=== PATIENT | female | born 1940 | race Caucasian/White ===

== ENCOUNTER 2016-12-15 11:19 | Inpatient (IN) ==
[2016-12-15] MEDS ORDERED: Ammonia Inhalant AMPUL ONE (11:37)
--- NOTE | 2016-12-15 11:45 | Emergency Department Note ---
Disposition Clinical Impression: History of dementia Altered mental status Qualifiers: Altered mental status type: transient alteration of awareness Qualified Code(s) : R40.4 - Transient alteration of awareness UTI (urinary tract infection) Qualifiers: Urinary tract infection type: site unspecified Hematuria presence: without hematuria Qualified Code(s): N39.0 - Urinary tract infection, site not specified Disposition: Admitted As Inpatient Condition: Serious Time of Disposition: 14:44 General Adult HPI - General Chief complaint: ED Syncope Stated complaint: hypotension/ABD PAIN Time Seen by Provider: 12/15/16 11:30 Source: EMS Mode of arrival: ambulatory Limitations: no limitations Nursing Notes Reviewed: Yes Vital Signs Reviewed: Yes - History of Present Illness HPI Narrative: Patient is a 76-year-old female who family complains that she had acute onset of abdominal pain and then slumped over and was not responding to them but patient still had a pulse and was breathing. Patient has a past history of dementia and Alzheimer's and is a resident at [facility]. This happened around 10 AM. Patient has had previous accounts of this happening but was not brought to the ED from prison. Patient also has an open ulcer on the left lateral portion of her foot proximal to her small toe. Measuring 1 x 1.2 cm. Currently being treated at the prison. Pain Scale: 3 - Related Data Home Medications Medication Instructions Recorded Confirmed Allopurinol [Zyloprim 100 MG] 100 mg PO DAILY 07/03/16 12/15/16 Cholecalciferol (D-3) [Vitamin D] 2,000 unit PO DAILY 07/03/16 12/15/16 Clopidogrel [Plavix] 75 mg PO DAILY 07/03/16 12/15/16 Desvenlafaxine Succinate [Pristiq] 50 mg PO DAILY 07/03/16 12/15/16 Dextromethorphan HBr/Quinidine 1 each PO BID 07/03/16 12/15/16 [Nuedexta 20-10 mg Capsule] Divalproex (12 HR) [Depakote (12 250 mg PO BID 07/03/16 12/15/16 HR)] Ferrous Sulfate 325 mg PO DAILY 07/03/16 12/15/16 Isosorbide MONOnitrate (24 HR) 30 mg PO DAILY 07/03/16 12/15/16 [Imdur] Levothyroxine [Synthroid] 150 mcg PO DAILY 07/03/16 12/15/16 Metoprolol Succinate 100 mg PO DAILY 07/03/16 12/15/16 Multivitamin [Multi-Day Vitamins] 1 each PO DAILY 07/03/16 12/15/16 Oxygen 2 l NS AD 07/03/16 12/15/16 Quetiapine Fumarate [Seroquel] 50 mg PO QAM 07/03/16 12/15/16 Ranitidine HCl [Zantac] 150 mg PO BID 07/03/16 12/15/16 Rivastigmine Tartrate [Exelon] 3 mg PO BID 07/03/16 12/15/16 Amoxicillin/Clavulanate [Augmentin] 875 mg PO BID 12/15/16 12/15/16 Cranberry Fruit Extract [Cranberry] 425 mg PO DAILY 12/15/16 12/15/16 Furosemide [Lasix] 40 mg PO DAILY 12/15/16 12/15/16 Insulin Glargine,Hum.rec.anlog 35 unit SQ HS 12/15/16 12/15/16 [Lantus Solostar] Lisinopril [Zestril] 5 mg PO QID 12/15/16 12/15/16 Tramadol HCl [Ultram] 50 mg PO TID PRN 12/15/16 12/15/16 Warfarin [Coumadin] 3.5 mg PO QPM 12/15/16 12/15/16 Previous Rx's Medication Instructions Recorded Quetiapine Fumarate [Seroquel] 100 mg PO HS tablet 07/07/16 Allergies Allergy/AdvReac Type Severity Reaction Status Date / Time lorazepam Allergy Anaphylaxis Verified 07/03/16 12:08 propoxyphene Allergy Anaphylaxis Verified 07/03/16 12:08 Sulfa (Sulfonamide Allergy Anaphylaxis Verified 07/03/16 12:08 Antibiotics) Limitations: ROS unobtainable due to patients medical condition Past Medical History - Past Medical History Source: obtained from family Medical history: Reports: COPD, dementia Surgical history: Reports: AICD Psychiatric history: Reports: no psych history, depression - Social History Smoking Status: Never smoker Smokeless Tobacco Status: No Alcohol use: Reports: none Drug use: Reports: none Physical Exam Vital Signs Temperature 97.4 F L 12/15/16 11:23 Pulse Rate 70 12/15/16 11:23 Respiratory Rate 12 12/15/16 11:23 Blood Pressure 79/48 12/15/16 11:23 O2 Sat by Pulse Oximetry 97 12/15/16 11:23 Temperature 97.4 F L 12/15/16 11:23 Pulse Rate 65 12/15/16 12:15 Respiratory Rate 14 12/15/16 12:15 Blood Pressure 99/51 12/15/16 12:15 O2 Sat by Pulse Oximetry 98 12/15/16 12:15 Oxygen Delivery Oxygen Delivery Nasal Cannula -General Appearance: Patient is a 76-year-old female who appears asleep at time of initial exam, patient is not responding to external stimuli - Head Head exam: atraumatic, normocephalic, normal inspection - Eye Eye exam: Present: normal appearance, PERRL, EOMI, negative for scleral icterus negative for conjunctival pallor - ENT ENT exam: normal exam, normal oropharynx, mucous membranes moist - Neck Neck exam: Present: normal inspection, full ROM, trachea midline, negative JVD - Chest Chest inspection: Present: Patient has bilateral equal rise and fall of chest wall. Non-tender to palpation. - Respiratory Respiratory exam: Clear to auscultation bilaterally without wheezes rales or rhonchi Cardiovascular Cardiovascular exam: Present: regular rate, normal rhythm, normal heart sounds, without murmurs rubs or gallops. - Abdominal Exam Abdominal exam: Present: soft, nondistended, Non-Tender light and deep palpation in all quadrants. Bowel sounds normoactive throughout all 4 quadrants. Negative for hyper or hyperresonance. - Extremities Exam Extremities exam: Capillary refill less than 2. Left foot in a boot and bandaged, lower tib-fib has huge distended secondary to sores. Patient has a 1 x 1.2 cm ulceration left lateral portion of the foot proximal to the fifth tarsal - Back Exam Back exam: Present: normal inspection, full ROM. - Skin Skin exam: Present: warm, dry, - General General appearance: lethargic Course Course Narrative: Patient was seen and examined. CBC, BMP, troponin, chest x-ray, head CT, lactate, LFTs, CT abdomen and pelvis ordered - Consultations Consultation #1: Dr. Garza accepted for admission Time: 14:44 Vital Signs Temperature 97.4 F L 12/15/16 11:23 Pulse Rate 70 12/15/16 11:23 Respiratory Rate 12 12/15/16 11:23 Blood Pressure 79/48 12/15/16 11:23 O2 Sat by Pulse Oximetry 97 12/15/16 11:23 Temperature 97.3 F L 12/15/16 18:07 Pulse Rate 71 12/15/16 18:07 Respiratory Rate 18 12/15/16 18:07 Blood Pressure 136/42 12/15/16 18:07 O2 Sat by Pulse Oximetry 98 12/15/16 18:07 Oxygen Delivery Oxygen Delivery Nasal Cannula Medical Decision Making - MDM Narrative Medical decision making narrative: Ms Morgan is 6-year-old female who presented his altered mental status. The patient has complaints of abdominal pain with sudden LOC per report from family member. On reexamination patient will more alert but patient's pain symptoms change. Patient's condition was concerning for unclear etiology concerning possible GI event or cardiac event leading to altered mental status. Or possible infection. Head CT was obtained which showed no acute intracranial abnormality. Chest x-ray: The right suprahilar fullness seen on the previous study in June is no longer present, likely representing an acute pneumonic infiltrate at that time. Minimal discoid atelectasis in the left mid lung, otherwise no acute cardiopulmonary process. Cardiomegaly. COPD. CT abdomen and pelvis showed no acute intra-abdominal abnormalities. BMP showed a hyperkalemia at 4.9 as well as worsening kidney function. With increased BUN to current 53, and an increase in creatinine to current 1.79. Previous was 1.45. Patient had normal creatinine back in August of last year. UA shows a UTI. Troponin was negative at 0.01. Patient is admitted for altered mental status secondary to acute encephalopathy secondary to infection in a 76-year-old female with dementia. Patient is accepted for admission by Dr. Garza - Medical Records Medical records reviewed: Yes I reviewed the patient's medical records. - Lab Data Lab results reviewed: Yes I reviewed the patient's lab results. Lab results narrative: Short CBC 12/15/16 Range/Units 12:15 WBC 8.6 (4.3-11.1) K/mcL Hgb 11.1 L (11.5-15.4) g/dL Hct 34.2 L (35.3-44.9) % Plt Count 214 (140-400) K/mcL Neutrophils # 5.3 (1.6-8.9) K/mcL BMP 12/15/16 Range/Units 12:15 Sodium 136 (136-145) mEq/L Potassium 4.9 H (3.5-4.5) mEq/L Chloride 102 (98-109) mEq/L Carbon Dioxide 28 (19-29) mEq/L BUN 53 H (7-20) mg/dL Creatinine 1.79 H (0.57-1.11) mg/dL Glucose 95 (70-99) mg/dL Calcium 8.8 (8.6-10.8) mg/dL Cardiac Enzymes 12/15/16 Range/Units 12:15 Troponin I 0.01 (0-0.03) ng/mL Liver Function 12/15/16 Range/Units 12:15 Total Bilirubin 0.4 (0.2-1.2) mg/dL Direct Bilirubin 0.2 (0.0-0.5) mg/dL AST 12 (5-34) Units/L ALT 9 (0-55) Units/L Alkaline Phosphatase 119 (38-126) Units/L Albumin 2.4 L (3.5-5.0) g/dL Urine 12/15/16 Range/Units 13:56 Urine Color Yellow (Yellow) Urine Clarity Cloudy A (Clear) Urine pH 6.5 (5.0-8.0) pH Units Ur Specific Davis 1.008 L (1.010-1.025) Urine Protein Negative (Neg-Trace) mg/dL Urine Glucose (UA) Normal (Normal) mg/dL Result diagrams: 12/15/16 12:15 12/15/16 12:15 Lab Results 12/15/16 12/15/16 12/15/16 Range/Units 11:34 12:15 12:15 WBC 8.6 (4.3-11.1) K/mcL RBC 3.66 L (3.82-4.97) M/mcL Hgb 11.1 L (11.5-15.4) g/dL Hct 34.2 L (35.3-44.9) % MCV 93.4 (83.0-100.0) fL MCH 30.3 (28.0-33.3) pg MCHC 32.5 (31.6-35.5) g/dL RDW 14.2 (11.5-14.5) % Plt Count 214 (140-400) K/mcL MPV 10.2 (9.4-12.4) fL Immature Gran % 0.4 (0-4) % Seg Neutrophils % 61.7 % Lymphocytes % 25.5 % Monocytes % 8.6 % Eosinophils % 3.4 % Basophils % 0.4 % Neutrophils # 5.3 (1.6-8.9) K/mcL Lymphocytes # 2.2 (0.6-4.6) K/mcL Monocytes # 0.7 (0.0-1.3) K/mcL Eosinophils # 0.3 (0.0-0.6) K/mcL Basophils # 0.0 (0.0-0.2) K/mcL Sodium 136 (136-145) mEq/L Potassium 4.9 H (3.5-4.5) mEq/L Chloride 102 (98-109) mEq/L Carbon Dioxide 28 (19-29) mEq/L BUN 53 H (7-20) mg/dL Creatinine 1.79 H (0.57-1.11) mg/dL Est GFR ( Amer) 33 L (> 60) Est GFR (Non-Af Amer) 28 L (> 60) BUN/Creatinine Ratio 30 H (6-26) Glucose 95 (70-99) mg/dL POC Glucose 102 H (58-89) Calculated Osmolality 296 (280-300) Lactic Acid (0.5-2.2) mmol/L Calcium 8.8 (8.6-10.8) mg/dL Total Bilirubin (0.2-1.2) mg/dL Direct Bilirubin (0.0-0.5) mg/dL Indirect Bilirubin (0.0-1.2) mg/dL AST (5-34) Units/L ALT (0-55) Units/L Alkaline Phosphatase (38-126) Units/L Troponin I (0-0.03) ng/mL Serum Total Protein (6.0-8.3) g/dL Albumin (3.5-5.0) g/dL Globulin (2.4-3.5) g/dL Albumin/Globulin Ratio (1.1-2.2) Urine Color (Yellow) Urine Clarity (Clear) Urine pH (5.0-8.0) pH Units Ur Specific Davis (1.010-1.025) Urine Protein (Neg-Trace) mg/dL Urine Glucose (UA) (Normal) mg/dL Urine Ketones (Negative) mg/dL Urine Blood (Negative) Urine Nitrite (Negative) Urine Bilirubin (Negative) Urine Urobilinogen (Normal) mg/dL Ur Leukocyte Esterase (Negative) Urine Microscopic RBC (0-3) per hpf Urine Microscopic WBC (0-3) per hpf Ur Squamous Epith Cells (None-Few) per lpf Urine Bacteria (None-Few) per hpf Hyaline Casts (None-Few) per lpf 12/15/16 12/15/16 12/15/16 Range/Units 12:15 12:15 12:15 WBC (4.3-11.1) K/mcL RBC (3.82-4.97) M/mcL Hgb (11.5-15.4) g/dL Hct (35.3-44.9) % MCV (83.0-100.0) fL MCH (28.0-33.3) pg MCHC (31.6-35.5) g/dL RDW (11.5-14.5) % Plt Count (140-400) K/mcL MPV (9.4-12.4) fL Immature Gran % (0-4) % Seg Neutrophils % % Lymphocytes % % Monocytes % % Eosinophils % % Basophils % % Neutrophils # (1.6-8.9) K/mcL Lymphocytes # (0.6-4.6) K/mcL Monocytes # (0.0-1.3) K/mcL Eosinophils # (0.0-0.6) K/mcL Basophils # (0.0-0.2) K/mcL Sodium (136-145) mEq/L Potassium (3.5-4.5) mEq/L Chloride (98-109) mEq/L Carbon Dioxide (19-29) mEq/L BUN (7-20) mg/dL Creatinine (0.57-1.11) mg/dL Est GFR ( Amer) (> 60) Est GFR (Non-Af Amer) (> 60) BUN/Creatinine Ratio (6-26) Glucose (70-99) mg/dL POC Glucose (58-89) Calculated Osmolality (280-300) Lactic Acid 1.6 (0.5-2.2) mmol/L Calcium (8.6-10.8) mg/dL Total Bilirubin 0.4 (0.2-1.2) mg/dL Direct Bilirubin 0.2 (0.0-0.5) mg/dL Indirect Bilirubin 0.2 (0.0-1.2) mg/dL AST 12 (5-34) Units/L ALT 9 (0-55) Units/L Alkaline Phosphatase 119 (38-126) Units/L Troponin I 0.01 (0-0.03) ng/mL Serum Total Protein 6.6 (6.0-8.3) g/dL Albumin 2.4 L (3.5-5.0) g/dL Globulin 4.2 H (2.4-3.5) g/dL Albumin/Globulin Ratio 0.6 L (1.1-2.2) Urine Color (Yellow) Urine Clarity (Clear) Urine pH (5.0-8.0) pH Units Ur Specific Davis (1.010-1.025) Urine Protein (Neg-Trace) mg/dL Urine Glucose (UA) (Normal) mg/dL Urine Ketones (Negative) mg/dL Urine Blood (Negative) Urine Nitrite (Negative) Urine Bilirubin (Negative) Urine Urobilinogen (Normal) mg/dL Ur Leukocyte Esterase (Negative) Urine Microscopic RBC (0-3) per hpf Urine Microscopic WBC (0-3) per hpf Ur Squamous Epith Cells (None-Few) per lpf Urine Bacteria (None-Few) per hpf Hyaline Casts (None-Few) per lpf 12/15/16 Range/Units 13:56 WBC (4.3-11.1) K/mcL RBC (3.82-4.97) M/mcL Hgb (11.5-15.4) g/dL Hct (35.3-44.9) % MCV (83.0-100.0) fL MCH (28.0-33.3) pg MCHC (31.6-35.5) g/dL RDW (11.5-14.5) % Plt Count (140-400) K/mcL MPV (9.4-12.4) fL Immature Gran % (0-4) % Seg Neutrophils % % Lymphocytes % % Monocytes % % Eosinophils % % Basophils % % Neutrophils # (1.6-8.9) K/mcL Lymphocytes # (0.6-4.6) K/mcL Monocytes # (0.0-1.3) K/mcL Eosinophils # (0.0-0.6) K/mcL Basophils # (0.0-0.2) K/mcL Sodium (136-145) mEq/L Potassium (3.5-4.5) mEq/L Chloride (98-109) mEq/L Carbon Dioxide (19-29) mEq/L BUN (7-20) mg/dL Creatinine (0.57-1.11) mg/dL Est GFR ( Amer) (> 60) Est GFR (Non-Af Amer) (> 60) BUN/Creatinine Ratio (6-26) Glucose (70-99) mg/dL POC Glucose (58-89) Calculated Osmolality (280-300) Lactic Acid (0.5-2.2) mmol/L Calcium (8.6-10.8) mg/dL Total Bilirubin (0.2-1.2) mg/dL Direct Bilirubin (0.0-0.5) mg/dL Indirect Bilirubin (0.0-1.2) mg/dL AST (5-34) Units/L ALT (0-55) Units/L Alkaline Phosphatase (38-126) Units/L Troponin I (0-0.03) ng/mL Serum Total Protein (6.0-8.3) g/dL Albumin (3.5-5.0) g/dL Globulin (2.4-3.5) g/dL Albumin/Globulin Ratio (1.1-2.2) Urine Color Yellow (Yellow) Urine Clarity Cloudy A (Clear) Urine pH 6.5 (5.0-8.0) pH Units Ur Specific Davis 1.008 L (1.010-1.025) Urine Protein Negative (Neg-Trace) mg/dL Urine Glucose (UA) Normal (Normal) mg/dL Urine Ketones Negative (Negative) mg/dL Urine Blood Negative (Negative) Urine Nitrite Negative (Negative) Urine Bilirubin Negative (Negative) Urine Urobilinogen Normal (Normal) mg/dL Ur Leukocyte Esterase Moderate H (Negative) Urine Microscopic RBC 0-3 (0-3) per hpf Urine Microscopic WBC 30-50 H (0-3) per hpf Ur Squamous Epith Cells Many H (None-Few) per lpf Urine Bacteria None Seen (None-Few) per hpf Hyaline Casts None Seen (None-Few) per lpf - Radiology Data Radiology results reviewed: Yes I reviewed the patient's radiology results. Chest X-Ray 12/15/16 12:06 IMPRESSION: The right suprahilar fullness seen on the previous study in June is no longer present, likely representing an acute pneumonic infiltrate at that time. Minimal discoid atelectasis in the left mid lung, otherwise no acute cardiopulmonary process. Cardiomegaly. COPD. D/ / John Whitlock MD / John Whitlock MD Interpreting Provider: John Whitlock MD Head CT 12/15/16 12:13 IMPRESSION: No hemorrhage or mass Underlying atrophy with periventricular and scattered frontal parietal white matter disease, likely due to small-vessel ischemic change, similar compared to prior D/ / Carson Schrader MD / Carson Schrader MD Interpreting Provider: Carson Schrader MD Abdomen/Pelvis CT 12/15/16 12:19 IMPRESSION: No acute intraabdominal abnormality Cholelithiasis There is a lobular contour of the liver suggesting underlying cirrhosis Diverticulosis. No bowel obstruction. D/ / Carson Schrader MD / Carson Schrader MD Interpreting Provider: Carson Schrader MD - EKG Data EKG #1 EKG attestation: Yes I reviewed and interpreted this EKG. Attestation Statement - Attestation Attestation: For this encounter, I have reviewed the resident, SOCIAL SERVICES DIRECTOR, or PA documentation, treatment plan, and medical decision making; and I have had face to face time with this patient. 76-year-old female presents with altered mental status. Family states that she had an acute episode where she was verbally unresponsive. Patient was still able to look around the room however she was unable to answer any questions. This is significantly different from the patient's baseline. This lasted for about an hour prior to the patient spontaneously improving and is now able to converse in the emergency department. Patient was being treated for a urinary tract infection with Augmentin at home. She continues to have a urinary tract infection in the emergency department. She was started on Zosyn based off previous sensitivity results. Patient family feel comfortable with plan to admit the patient for continued care.
[2016-12-15] MEDS ORDERED: 0.9 % Sodium Chloride 1,000 ML ONE (11:48)
[2016-12-15] MEDS ORDERED: Neosporin OINT 1 APPL PACKET TP ONE (12:07)
[2016-12-15 12:22] LABS: Basophils % 0.4 %; Eosinophils # 0.3 K/mcL (0.0-0.6); Eosinophils % 3.4 %; Hematocrit 34.2 % (35.3-44.9); Hemoglobin 11.1 g/dL (11.5-15.4); Immature Granulocytes % 0.4 % (0-4); Lymphocytes # 2.2 K/mcL (0.6-4.6); Lymphocytes % 25.5 %; Mean Corpuscular HGB Conc 32.5 g/dL (31.6-35.5); Mean Corpuscular Hemoglobin 30.3 pg (28.0-33.3); Mean Corpuscular Volume 93.4 fL (83.0-100.0); Mean Platelet Volume 10.2 fL (9.4-12.4); Monocytes # 0.7 K/mcL (0.0-1.3); Monocytes % 8.6 %; Neutrophils # 5.3 K/mcL (1.6-8.9); Platelet Count 214 K/mcL (140-400); Red Blood Count 3.66 M/mcL (3.82-4.97); Red Cell Distribution Width 14.2 % (11.5-14.5); Segmented Neutrophils % 61.7 %
[2016-12-15 12:37] LABS: Calcium 8.8 mg/dL (8.6-10.8); Potassium 4.9 mEq/L (3.5-4.5)
[2016-12-15 12:39] LABS: Bilirubin,Direct 0.2 mg/dL (0.0-0.5); Bilirubin,Total 0.4 mg/dL (0.2-1.2)
[2016-12-15 12:40] LABS: Albumin 2.4 g/dL (3.5-5.0); Albumin/Globulin Ratio 0.6 (1.1-2.2); Bilirubin,Indirect 0.2 mg/dL (0.0-1.2); Globulin 4.2 g/dL (2.4-3.5); Total Protein 6.6 g/dL (6.0-8.3)
[2016-12-15 14:00] LABS: Bilirubin,Urine Negative (Negative); Blood,Urine Negative (Negative); Clarity,Urine Cloudy (Clear); Color,Urine Yellow (Yellow); Glucose,Urine (UA) Normal (Normal); Ketones,Urine Negative (Negative); Leukocyte Esterase,Urine Moderate (Negative); Nitrite,Urine Negative (Negative); PH,Urine 6.5 pH Units (5.0-8.0); Protein,Urine Negative (Neg-Trace); Specific Gravity,Urine 1.008 (1.010-1.025); Urobilinogen,Urine Normal (Normal)
[2016-12-15 14:02] LABS: Bacteria,Urine None Seen per hpf (None-Few); Hyaline Casts,Urine None Seen per lpf (None-Few); RBC,Urine 0-3 per hpf (0-3); Squamous Epithelial Cell,Urine Many per lpf (None-Few); WBC,Urine 30-50 per hpf (0-3)
[2016-12-15] MEDS ORDERED: Piperacillin/Tazobactam 3.375 GM in D5% in Water (Mini-Bag+) 100 ML IVPB ONE (14:43)
[2016-12-15] MEDS ORDERED: D5% in Water 100 ML ONE (16:09)
[2016-12-15] MEDS ORDERED: D5% in Water (Mini-Bag+) 100 ML IVPB ONE (16:10)
[2016-12-15] MEDS ORDERED: Naloxone 0.4 MG/ML INJ IVP PRN (22:10)
[2016-12-15] MEDS ORDERED: Ondansetron 4 MG/2 ML VIAL IVP PRN (22:10)
[2016-12-15] MEDS ORDERED: traMADol 50 MG TABLET PO PRN (22:15)
[2016-12-15] MEDS ORDERED: D5% in Water 1,000 ML IV PRN (22:17)
[2016-12-15] MEDS ORDERED: Dextrose Gel 15 GM PO PRN ×2 (22:17)
[2016-12-15] MEDS ORDERED: Vancomycin 1,000 MG in D5% in Water 250 ML IVPB SCH (22:31)
--- NOTE | 2016-12-15 22:38 | Internal Med History&Physical ---
Date of Encounter: 12/15/16 Time of Encounter: 21:45 Assessment and Plan (1) Altered mental status Current visit: Yes Status: Acute -Unclear of patient's baseline mental status, however as per records patient at this time appears to be at baseline -Patient is currently undergoing treatment for a possible UTI as outpatient, however family not available to obtain more information -Urine culture from 12/06/2016 positive for enterococcus faecalis sensitive to vancomycin -We will try to obtain more information from the family in a.m. -Continue to monitor -Maintain fall precautions Qualifiers: Altered mental status type: unspecified Qualified Code(s): R41.82 - Altered mental status, unspecified (2) History of dementia Current visit: Yes Status: Chronic Mental status appears to be at baseline as per records Continue home medications (3) UTI (urinary tract infection) Current visit: Yes Status: Acute Urine culture from 12/06/2016 positive for enterococcus faecalis sensitive to vancomycin We will start vancomycin at this time Underlying UTI might be contributing to patient's mental status Follow up repeat Urine cultures Qualifiers: Urinary tract infection type: site unspecified Hematuria presence: without hematuria Qualified Code(s): N39.0 - Urinary tract infection, site not specified (4) Acute kidney injury superimposed on chronic kidney disease Current visit: Yes Status: Acute -Likely secondary to underlying infection vs. prerenal -Will start IV fluids -Avoid nephrotoxic agents -continue to closely monitor kidney function (5) COPD (chronic obstructive pulmonary disease) Current visit: Yes Status: Chronic not in acute exacerbation continue to monitor O2 sat O2 supplementation as needed continue bronchodilator support as needed continue home medications Qualifiers: COPD type: unspecified COPD Qualified Code(s): J44.9 - Chronic obstructive pulmonary disease, unspecified (6) Hypertension Current visit: Yes Status: Chronic Patient noted to be hypotensive upon arrival BP within acceptable range at this time will continue to monitor continue home medications Qualifiers: Hypertension type: essential hypertension Qualified Code(s): I10 - Essential (primary) hypertension (7) Diabetes mellitus Current visit: Yes Status: Chronic -continue home lantus dose -continue to monitor fingerstick and blood glucose -started low dose insulin sliding scale as needed -f/u HbA1C, last A1C from Aug 2016:7.9 Qualifiers: Diabetes mellitus type: type 2 Diabetes mellitus complication status: with unspecified complications Diabetes mellitus mcfp insulin use: with oil heaterman use Qualified Code(s): E11.8 - Type 2 diabetes mellitus with unspecified complications; Z79.4 - intermodal customer service (current) use of insulin (8) Foot ulcer Current visit: No Status: Chronic continue daily wound care Qualifiers: Laterality: left Non-pressure ulcer stage: with necrosis of muscle Qualified Code(s): 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 (9) Atrial fibrillation Current visit: No Status: Chronic Rate controlled with Metoprolol Anticoagulated with Warfarin f/u INR, goal INR:2-3 Qualifiers: Atrial fibrillation type: chronic Qualified Code(s): I48.2 - Chronic atrial fibrillation (10) Anemia Current visit: No Status: Chronic -History of iron deficiency anemia -H&H low but acceptable -continue iron supplementation -no active bleeding noted at this time -continue to monitor Qualifiers: Anemia type: iron deficiency Iron deficiency anemia type: unspecified iron deficiency Qualified Code(s): D50.9 - Iron deficiency anemia, unspecified (11) Hypothyroidism Current visit: Yes Status: Chronic continue Levothyroxine Qualifiers: Hypothyroidism type: unspecified Qualified Code(s): E03.9 - Hypothyroidism , unspecified (12) Abdominal pain Current visit: Yes Status: Acute Resolved at this time however as per records patient complained of abdominal pain prior to transfer to the ER CT abd/pelvis consistent with liver cirrhosis If symptoms recur, consider GI eval, if remains asymptomatic, further work up as outpatient. Qualifiers: Abdominal location: unspecified location Qualified Code(s): R10.9 - Unspecified abdominal pain (13) DVT prophylaxis Current visit: Yes Status: Acute Anticoagulated with Warfarin Internal Medicine - H&P: HPI Chief complaint: change in mental status/LOC Admitted From: Long-term Nursing Facility Plans for Post Hospital Care: [facility] History of present illness: Ms. Morgan is a 76 year old female with past medical history of atrial fibrillation on anticoagulation, COPD on home oxygen, dementia, Alzheimer's disease, thyroid disease, hypertension, diabetes who was sent from [facility] for evaluation of change in mental status. Patient has underlying dementia and at baseline is confused due to which she is not able to provide much medical history and information was obtained from prior medical records. As per records patient was transferred from the shelter to ER status post fall, abdominal pain, and LOC. Patient underwent extensive imaging studies in the ER with only pertinent findings of lobular pattern noted on the liver consistent with cirrhosis. During my evaluation, patient is resting comfortably in bed and is pleasantly confused. She is alert and oriented to self and does not know where she is at this time. Upon further questioning she denies any pain or discomfort at this time. She denies any headache, shortness of breath, chest pain, palpitations, abdominal pain, nausea, vomiting, fever, or chills. As per records she has history of chronic UTIs and is currently going through treatment of left lower extremity diabetic foot ulcer. As per NH patient was started on Augmentin for unclear etiology. Unable to get in touch with family to obtain more information at this time. No living will or advanced directives noted in the shelter papers, patient is full code at this time. Please consult family in regards to advanced directives. Past Med Surg Social Fam HX - Past Medical History Medical history: COPD, dementia Psychiatric history: no psych history, depression - Past Surgical History Surgical History: AICD - Social History Smoking Status: Never smoker Smokeless Tobacco Status: No Alcohol use: none Drug use: none - Family History Mother Living Status: Hx Family Cardiac Disorders: Yes Internal Medicine - H&P: Meds Allopurinol [Zyloprim 100 MG] 100 mg PO DAILY 07/03/16 [History] Cholecalciferol (D-3) [Vitamin D] 2,000 unit PO DAILY 07/03/16 [History] Clopidogrel [Plavix] 75 mg PO DAILY 07/03/16 [History] Desvenlafaxine Succinate [Pristiq] 50 mg PO DAILY 07/03/16 [History] Dextromethorphan HBr/Quinidine [Nuedexta 20-10 mg Capsule] 1 each PO BID [History] Divalproex (12 HR) [Depakote (12 HR)] 250 mg PO BID 07/03/16 [History] Ferrous Sulfate 325 mg PO DAILY 07/03/16 [History] Isosorbide MONOnitrate (24 HR) [Imdur] 30 mg PO DAILY 07/03/16 [History] Levothyroxine [Synthroid] 150 mcg PO DAILY 07/03/16 [History] Metoprolol Succinate 100 mg PO DAILY 07/03/16 [History] Multivitamin [Multi-Day Vitamins] 1 each PO DAILY 07/03/16 [History] Oxygen 2 l NS AD 07/03/16 [History] Quetiapine Fumarate [Seroquel] 50 mg PO QAM 07/03/16 [History] Ranitidine HCl [Zantac] 150 mg PO BID 07/03/16 [History] Rivastigmine Tartrate [Exelon] 3 mg PO BID 07/03/16 [History] Quetiapine Fumarate [Seroquel] 100 mg PO HS tablet 07/07/16 [Rx] Amoxicillin/Clavulanate [Augmentin] 875 mg PO BID 12/15/16 [History] Cranberry Fruit Extract [Cranberry] 425 mg PO DAILY 12/15/16 [History] Furosemide [Lasix] 40 mg PO DAILY 12/15/16 [History] Insulin Glargine,Hum.rec.anlog [Lantus Solostar] 35 unit SQ HS 12/15/16 [History ] Lisinopril [Zestril] 5 mg PO QID 12/15/16 [History] Tramadol HCl [Ultram] 50 mg PO TID PRN 12/15/16 [History] Warfarin [Coumadin] 3.5 mg PO QPM 12/15/16 [History] Allergies lorazepam Allergy (Verified 07/03/16 12:08) Anaphylaxis propoxyphene Allergy (Verified 07/03/16 12:08) Anaphylaxis Sulfa (Sulfonamide Antibiotics) Allergy (Verified 07/03/16 12:08) Anaphylaxis All Systems PM: A 10-system review of systems was performed and is negative for pertinent findings except as documented above in the HPI. - Constitutional Constitutional: as per HPI - Constitutional Vitals: Temp Pulse Resp BP Pulse Ox 97.3 F L 71 18 136/42 98 12/15/16 18:07 12/15/16 18:07 12/15/16 18:07 12/15/16 18:07 12/15/16 18:07 General appearance: Present: A&O X 1, pleasant, no acute distress, obese - Head Head exam: Present: atraumatic, normocephalic - Eye Eye exam: Present: normal appearance, conjuntiva pink, sclera anicteric - Respiratory Respiratory exam: Present: CTAB. Absent: respiratory distress, wheezes - GI/Abdominal GI/Abdominal exam: Present: normal bowel sounds, soft. Absent: distended, tenderness - Extremities Exam Extremities exam: Present: pedal edema, warm, radial pulses palpable and symetrical (LLE healing ulcers noted-dressing in place). Absent: calf tenderness - Neurological Exam Neurological exam: Present: alert. Absent: facial droop, speech deficit - Psychiatric Psychiatric exam: Present: normal affect, normal mood Internal Med - H&P Results - Labs CBC & Chem 7: 12/15/16 12:15 12/15/16 12:15
[2016-12-15] MEDS ORDERED: Insulin DETEMIR 100 UNIT/ML X5UNITS SQ SCH (22:45)
[2016-12-15] MEDS: 0.9 % Sodium Chloride 1,000 ML IVC SCH (23:28)
[2016-12-16] MEDS ORDERED: Vancomycin 1,500 MG in D5% in Water 250 ML IVPB ONE
[2016-12-16 05:48] LABS: Basophils % 0.3 %; Eosinophils % 3.7 %; Hematocrit 34.8 % (35.3-44.9); Hemoglobin 11.3 g/dL (11.5-15.4); Immature Granulocytes % 0.3 % (0-4); Lymphocytes % 25.7 %; Mean Corpuscular HGB Conc 32.5 g/dL (31.6-35.5); Mean Corpuscular Volume 92.3 fL (83.0-100.0); Mean Platelet Volume 11.1 fL (9.4-12.4); Monocytes % 11.9 %; Platelet Count 229 K/mcL (140-400); Red Blood Count 3.77 M/mcL (3.82-4.97); Red Cell Distribution Width 14.2 % (11.5-14.5); Segmented Neutrophils % 58.1 %
[2016-12-16 05:49] LABS: Eosinophils # 0.3 K/mcL (0.0-0.6); Lymphocytes # 2.3 K/mcL (0.6-4.6); Monocytes # 1.1 K/mcL (0.0-1.3); Neutrophils # 5.2 K/mcL (1.6-8.9)
[2016-12-16 05:52] LABS: INR 2.6; Prothrombin Time 28.3 Seconds (9.4-12.1)
[2016-12-16 06:01] LABS: Hemoglobin A1C 6.7 %
[2016-12-16 06:03] LABS: Calcium 8.7 mg/dL (8.6-10.8); Magnesium 1.9 mg/dL (1.6-2.6); Phosphorous 3.5 mg/dL (2.3-4.7); Potassium 4.3 mEq/L (3.5-4.5)
[2016-12-16] MEDS: *HR* Dextrose 50 % in Water (Syg) 50 ML SYRINGE IVP PRN ×2 (06:13→08:01)
[2016-12-16] MEDS ORDERED: Famotidine 20 MG TABLET PO SCH (07:30)
[2016-12-16] MEDS: Insulin LISPRO 300 UNITS/3 ML VIAL SQ SCH ×4 (07:42→21:29)
--- NOTE | 2016-12-16 08:54 | Internal Med Progress Note ---
<Subhash Alcaraz - Last Filed: 12/16/16 15:27> Date of Encounter: 12/16/16 Time of Encounter: 08:54 - Assessment and plan (1) Altered mental status Current Visit: Yes Status: Acute Assessment and plan: Per pt's family member, her mental status change is different from her baseline dementia, multiple hx of recurrent UTI in the past, urine culture pending at this time, currently on vanco IV for possible underlying uti based on previous culture result sensitivity, this mental status might be her new baseline since she had multiple UTI in the past which could made her baseline dementia worse, or could be infectious etiology, CT abd showed cirrhosis, no hx of alcohol abuse but hx of obesity, DM II and HLD, could be MINER, check ammonia level and hepatitis panel, check blood cultures, EEG to r/o seizure, check TSH. Qualifiers: Altered mental status type: unspecified Qualified Code(s): R41.82 - Altered mental status, unspecified (2) Dementia in Alzheimer's disease Current Visit: Yes Status: Acute Assessment and plan: Her current mental status is worse than her baseline. (3) Recurrent UTI Current Visit: Yes Status: Acute Assessment and plan: Urine culture pending, multiple hx, chronic issue, con't vanco IV which was based on sensitivity of previous urine culture. (4) Cirrhosis Current Visit: Yes Status: Acute Assessment and plan: Likely IMNER from hx of obesity, DM II and HLD, will start her on statin, good control of DM II and she might need to lose weight. Qualifiers: Qualified Code(s): K74.60 - Unspecified cirrhosis of liver (5) Hypoglycemia due to type 2 diabetes mellitus Current Visit: Yes Status: Acute Assessment and plan: Consistenly low during this stay, will hold off of basal and see how she does, it was 39 this AM, a1c is 6.7 today. (6) Hypotension Current Visit: Yes Status: Acute Assessment and plan: Hold home dose lasix and antihypertensive meds, con't IV fluid. Qualifiers: Qualified Code(s): I95.9 - Hypotension, unspecified (7) A-fib Current Visit: Yes Status: Acute Assessment and plan: Hx of a-fib on chronic coumadin therapy, therapeutic INR today, HR controlled. Qualifiers: Qualified Code(s): I48.91 - Unspecified atrial fibrillation (8) DVT prophylaxis Current Visit: Yes Status: Acute Assessment and plan: Coumadin. - Constitutional Vitals: Temp Pulse Resp BP Pulse Ox 97.9 F 76 18 105/80 98 12/16/16 07:24 12/16/16 07:24 12/16/16 07:24 12/16/16 07:24 12/16/16 07:24 General appearance: Present: A&O X 1 (to name only), no acute distress, obese. Absent: cooperative, answers questions appropriately - Head Head exam: Present: atraumatic, normocephalic - Eye Eye exam: Present: PERRL, conjuntiva pink, sclera anicteric Pupils: Present: PERRL - Neck Neck exam general surgery: Present: supple, trachea midline. Absent: lymphadenopathy - Respiratory Respiratory exam: Present: CTAB. Absent: accessory muscle use, rales, rhonchi, wheezes - Cardiovascular Cardiovascular exam: Present: RRR, +S1, +S2. Absent: diastolic murmur, gallop, rubs, systolic murmur - GI/Abdominal GI/Abdominal exam: Present: normal bowel sounds, soft, no peritoneal signs. Absent: distended, tenderness - Extremities Exam Extremities exam: Present: warm, radial pulses palpable and symetrical. Absent : calf tenderness, cyanotic, pedal edema - Neurological Exam Neurological exam: Present: altered, CN II-XII intact, no focal deficits, strengths equal and symetr throughout. Absent: alert, oriented X3, pronater drift, facial droop, speech deficit - Skin Skin exam: Present: dry, intact Internal Medicine: Result - Labs CBC & Chem 7: 12/16/16 05:12 12/16/16 05:12 Labs: Short CBC 12/16/16 Range/Units 05:12 WBC 8.9 (4.3-11.1) K/mcL Hgb 11.3 L (11.5-15.4) g/dL Hct 34.8 L (35.3-44.9) % Plt Count 229 (140-400) K/mcL Neutrophils # 5.2 (1.6-8.9) K/mcL BMP 12/16/16 05:12 Sodium 138 Potassium 4.3 Chloride 104 Carbon Dioxide 25 BUN 43 H D Creatinine 1.48 H Glucose 39 L* Calcium 8.7 - ABG Interpretation ABG results: PT/INR, D-dimer PT 28.3 Seconds (9.4-12.1) H 12/16/16 05:12 Consult Discharge Plan - Plan Referrals: Yrn Avery MD [Primary Care Provider] - <Gerson Garcia - Last Filed: 12/16/16 17:32> Date of Encounter: 12/16/16 - Assessment and plan (1) Acute metabolic encephalopathy Current Visit: Yes Status: Acute (2) Hypotension Current Visit: Yes Status: Acute Qualifiers: Hypotension type: orthostatic hypotension Qualified Code(s): I95.1 - Orthostatic hypotension (3) Diabetes mellitus Current Visit: Yes Status: Chronic Qualifiers: Diabetes mellitus type: type 2 Diabetes mellitus complication status: with hypoglycemia Diabetes mellitus complication detail: without coma Diabetes mellitus long line teamster insulin use: with long line teamster use Qualified Code(s): E11.649 - Type 2 diabetes mellitus with hypoglycemia without coma; Z79.4 - residential ( current) use of insulin (4) A-fib Current Visit: Yes Status: Acute Qualifiers: Atrial fibrillation type: chronic Qualified Code(s): I48.2 - Chronic atrial fibrillation (5) Cirrhosis Current Visit: Yes Status: Acute Qualifiers: Hepatic cirrhosis type: unspecified hepatic cirrhosis Ascites presence: without ascites Qualified Code(s): K74.60 - Unspecified cirrhosis of liver (6) Dementia in Alzheimer's disease Current Visit: Yes Status: Acute - Constitutional Vitals: Temp Pulse Resp BP Pulse Ox 97.6 F 78 12 114/67 100 12/16/16 16:46 12/16/16 16:46 12/16/16 16:46 12/16/16 16:46 12/16/16 16:46 Internal Medicine: Result - Labs CBC & Chem 7: 12/16/16 05:12 12/16/16 05:12 - ABG Interpretation ABG results: PT/INR, D-dimer PT 28.3 Seconds (9.4-12.1) H 12/16/16 05:12 - Attending Attestation I examined this patient and my medical decision-making was reviewed with the Resident Physician on 12/16/16. I agree with the documented findings, disposition and treatment plan as described except to the extent set forth below. Ms. Morgan is currently admitted for acute mental status change. She is profoundly hypoglycemic today. Her BP has been low as well. She remains moderate to high risk due to potential for worsening mental/neurologic condition. States was somnolent this AM when blood sugar was low but is more awake later in the morning. Denies pain. No dyspnea. No GI symptoms Exam Alert. Confused Heart irreg Lungs diminished but clear Abd soft I/P 1. Acute metabolic encephalopathy 2. UTI 3. Dementia Further diagnoses and plan as above.
[2016-12-16] MEDS ORDERED: Divalproex (12 HR) 250 MG TABLET PO SCH (09:00)
[2016-12-16] MEDS ORDERED: Metoprolol XL (24 HR) Succ 50 MG TAB.ER.24H PO SCH ×2 (09:00)
[2016-12-16] MEDS ORDERED: Furosemide 40 MG TABLET PO SCH (09:00)
[2016-12-16] MEDS: 0.9 % Sodium Chloride 1,000 ML IVC SCH ×2 (11:31→23:45)
[2016-12-16] MEDS: CRANBERRY 425 MG PO SCH (13:03)
[2016-12-16] MEDS: Isosorbide MONOnitrate (24 HR) 30 MG TAB.ER.24H PO SCH (13:03)
[2016-12-16] MEDS: Multivit/Ca/Min/Fe/FA 1 TAB TABLET PO SCH (13:09)
[2016-12-16] MEDS: Venlafaxine XR (24 HR) 75 MG CAP.ER.24H PO SCH (13:09)
[2016-12-16] MEDS: Cholecalciferol (D-3) 1,000 UNIT TABLET PO SCH (13:09)
[2016-12-16] MEDS: Rivastigmine Tartrate (oral) 1.5 MG CAPSULE PO SCH ×2 (13:09→21:33)
[2016-12-16 13:54] LABS: Hepatitis B Surface Antigen Nonreactive (Nonreactive)
[2016-12-16] MEDS ORDERED: *HR* Warfarin 3 MG TABLET PO SCH (18:00)
--- NOTE | 2016-12-16 18:38 | Electrocardiograph Report ---
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
[2016-12-16] MEDS ORDERED: Insulin DETEMIR 100 UNIT/ML X5UNITS SQ SCH (21:00)
[2016-12-17] MEDS ORDERED: Vancomycin 1,500 MG in D5% in Water 250 ML IVPB ONE (01:00)
[2016-12-17 05:31] LABS: Calcium 8.5 mg/dL (8.6-10.8); Potassium 4.1 mEq/L (3.5-4.5)
[2016-12-17 05:53] LABS: Thyroid Stimulating Hormone 0.552 mcIU/mL (0.350-4.840)
[2016-12-17] MEDS ORDERED: Aminoglycoside Consult 1 EACH MC ONE (07:41)
[2016-12-17] MEDS: Rivastigmine Tartrate (oral) 1.5 MG CAPSULE PO SCH ×2 (08:38→20:28)
[2016-12-17] MEDS: Isosorbide MONOnitrate (24 HR) 30 MG TAB.ER.24H PO SCH (08:39)
[2016-12-17] MEDS: Insulin LISPRO 300 UNITS/3 ML VIAL SQ SCH ×4 (08:39→20:27)
[2016-12-17] MEDS: Multivit/Ca/Min/Fe/FA 1 TAB TABLET PO SCH (08:39)
[2016-12-17] MEDS: Venlafaxine XR (24 HR) 75 MG CAP.ER.24H PO SCH (08:39)
[2016-12-17] MEDS: CRANBERRY 425 MG PO SCH (08:39)
[2016-12-17] MEDS: Cholecalciferol (D-3) 1,000 UNIT TABLET PO SCH (08:39)
[2016-12-17] MEDS: Famotidine 20 MG TABLET PO SCH (08:40)
--- NOTE | 2016-12-17 09:24 | EEG/EMG/Oth Biometrics Report ---
EEG Procedure Report Date of procedure: 12/17/16 EEG Procedure: Routine EEG Procedure Note: Report: This EEG was acquired with standard international 10-20 electrode placement system with EKG recording. The background activity during this EEG was replaced by a mixture of theta, occasional delta and slow alpha activity with best frequency up to 7-8Hz. The background activity was reactive. Sleep stages were not identified during the study. Diffuse persistent muscle activity noted throughout the study. There are no electricographic seizures identified during this tracing. There are no epileptiform discharges and focal slowing noted during this recording. Photic stimulation produced no abnormalities. HV not performed during this study. EKG tracing showed no significant cardiac dysarrhythmia. Impression: This is an abnormal EEG due to presence of mild diffuse background slowing. Clinical Correlation: This EEG is consistent with mild to moderate diffuse cerebral dysfunction that can be seen in patients with encephalopathy, metabolic/toxic, electrolyte derangement, or other causes. Clinical correlation suggested.
--- NOTE | 2016-12-17 11:16 | Discharge Summary ---
Date of Encounter: 12/17/16 Time of Encounter: 10:50 - Discharge Diagnosis (1) Altered mental status Priority: Primary Status: Acute Qualifiers: Altered mental status type: unspecified Qualified Code(s): R41.82 - Altered mental status, unspecified (2) Dementia in Alzheimer's disease Priority: Secondary Status: Acute (3) Recurrent UTI Priority: Secondary Status: Acute (4) Cirrhosis Priority: Secondary Status: Acute Qualifiers: Hepatic cirrhosis type: unspecified hepatic cirrhosis Ascites presence: without ascites Qualified Code(s): K74.60 - Unspecified cirrhosis of liver (5) Hypoglycemia due to type 2 diabetes mellitus Priority: Secondary Status: Acute (6) Hypotension Priority: Secondary Status: Acute Qualifiers: Hypotension type: orthostatic hypotension Qualified Code(s): I95.1 - Orthostatic hypotension (7) A-fib Priority: Secondary Status: Acute Qualifiers: Atrial fibrillation type: chronic Qualified Code(s): I48.2 - Chronic atrial fibrillation (8) DVT prophylaxis Priority: Secondary Status: Acute - Discharge Medications Home Medications: Allopurinol [Zyloprim 100 MG] 100 mg PO DAILY 07/03/16 [History] Cholecalciferol (D-3) [Vitamin D] 2,000 unit PO DAILY 07/03/16 [History] Clopidogrel [Plavix] 75 mg PO DAILY 07/03/16 [History] Desvenlafaxine Succinate [Pristiq] 50 mg PO DAILY 07/03/16 [History] Dextromethorphan HBr/Quinidine [Nuedexta 20-10 mg Capsule] 1 each PO BID [History] Divalproex (12 HR) [Depakote (12 HR)] 250 mg PO BID 07/03/16 [History] Ferrous Sulfate 325 mg PO DAILY 07/03/16 [History] Isosorbide MONOnitrate (24 HR) [Imdur] 30 mg PO DAILY 07/03/16 [History] Levothyroxine [Synthroid] 150 mcg PO DAILY 07/03/16 [History] Metoprolol Succinate 100 mg PO DAILY 07/03/16 [History] Multivitamin [Multi-Day Vitamins] 1 each PO DAILY 07/03/16 [History] Oxygen 2 l NS AD 07/03/16 [History] Quetiapine Fumarate [Seroquel] 50 mg PO QAM 07/03/16 [History] Ranitidine HCl [Zantac] 150 mg PO BID 07/03/16 [History] Rivastigmine Tartrate [Exelon] 3 mg PO BID 07/03/16 [History] Quetiapine Fumarate [Seroquel] 100 mg PO HS tablet 07/07/16 [Rx] Amoxicillin/Clavulanate [Augmentin] 875 mg PO BID 12/15/16 [History] Cranberry Fruit Extract [Cranberry] 425 mg PO DAILY 12/15/16 [History] Furosemide [Lasix] 40 mg PO DAILY 12/15/16 [History] Insulin Glargine,Hum.rec.anlog [Lantus Solostar] 35 unit SQ HS 12/15/16 [History ] Lisinopril [Zestril] 5 mg PO QID 12/15/16 [History] Tramadol HCl [Ultram] 50 mg PO TID PRN 12/15/16 [History] Warfarin [Coumadin] 3.5 mg PO QPM 12/15/16 [History] Allergies/Adverse Reactions: Allergies lorazepam Allergy (Verified 07/03/16 12:08) Anaphylaxis propoxyphene Allergy (Verified 07/03/16 12:08) Anaphylaxis Sulfa (Sulfonamide Antibiotics) Allergy (Verified 07/03/16 12:08) Anaphylaxis Date of admission: 12/16/16 11:12 Primary care physician: Yrn Avery MD Consults: 12/16/16 11:37 Consult to Wound Care [CONS] Routine Reason for Consult: STAGE 2 WOUND TO COCCYX AND LEFT FOOT Call Completed: No 12/16/16 15:28 Consult to Interpret Exam [CONS] Routine Consulting Provider: Andrew Tenorio Consult to Interpret Exam: Interpret EEG Discharging clinician: Subhash Alcaraz Anticipated date of discharge: 12/17/16 - Patient Status Condition: Serious - Discharge Instructions Follow Up With: Yrn Avery MD [Primary Care Provider] - Hospital course: Ms. Morgan is a 76 year old female - Time Spent with Patient Total time spent providing and/or coordinating discharge services: - Constitutional Vitals: Temp Pulse Resp BP Pulse Ox 98.2 F 96 16 123/59 100 12/17/16 07:00 12/17/16 07:00 12/17/16 07:00 12/17/16 07:00 12/17/16 07:00 General appearance: Present: A&O X 1 (to name only), no acute distress, obese. Absent: cooperative, answers questions appropriately
--- NOTE | 2016-12-17 11:17 | Internal Med Progress Note ---
<Subhash Alcaraz - Last Filed: 12/17/16 13:59> Date of Encounter: 12/17/16 Time of Encounter: 11:17 - Assessment and plan (1) Altered mental status Current Visit: Yes Status: Acute Assessment and plan: More alert today, after stopping basal insulin and HTN meds, her glucose and BP improved, EEG did not show seizure, bld and urine cultures negative, not septic , unlikely infectious etiology, her med list reviewed at [place], several meds are unnecessary and not indicated, polypharmacy might be one of contributing factors for her change in mental status as well as hypoglycemia and hypotension , upon discharge, I will adjust her home meds, decrease her BB dosage, will obtain ABG today, she was drowsy at noon. Qualifiers: Altered mental status type: unspecified Qualified Code(s): R41.82 - Altered mental status, unspecified (2) Dementia in Alzheimer's disease Current Visit: Yes Status: Acute Assessment and plan: Her current mental status is worse than her baseline. (3) Recurrent UTI Current Visit: Yes Status: Acute Assessment and plan: Urine culture negative this time. (4) Cirrhosis Current Visit: Yes Status: Acute Assessment and plan: Likely MINER from hx of obesity, DM II and HLD, will start her on statin, good control of DM II and she might need to lose weight. Qualifiers: Hepatic cirrhosis type: unspecified hepatic cirrhosis Ascites presence: without ascites Qualified Code(s): K74.60 - Unspecified cirrhosis of liver (5) Hypoglycemia due to type 2 diabetes mellitus Current Visit: Yes Status: Acute Assessment and plan: After holding her basal, her glucose improved, a1c is 6.7. (6) Hypotension Current Visit: Yes Status: Acute Assessment and plan: After holding lasix and HTN meds, her BP improved, con't NS IV fluid, she is not eating much at all. Qualifiers: Hypotension type: orthostatic hypotension Qualified Code(s): I95.1 - Orthostatic hypotension (7) A-fib Current Visit: Yes Status: Acute Assessment and plan: Hx of a-fib on chronic coumadin therapy, therapeutic INR, HR controlled. Qualifiers: Atrial fibrillation type: chronic Qualified Code(s): I48.2 - Chronic atrial fibrillation (8) DVT prophylaxis Current Visit: Yes Status: Acute Assessment and plan: Coumadin. - Subjective Interval history: Pt seen and examined, A and O x1, oriented to name, more conversation today, more alert, answered simple questions. - Constitutional Vitals: Temp Pulse Resp BP Pulse Ox 98.2 F 96 16 123/59 100 12/17/16 07:00 12/17/16 07:00 12/17/16 07:00 12/17/16 07:00 12/17/16 07:00 General appearance: Present: A&O X 1, no acute distress, obese, answers questions appropriately (somewhat) - Head Head exam: Present: atraumatic, normocephalic - Eye Eye exam: Present: PERRL, conjuntiva pink, sclera anicteric Pupils: Present: PERRL - Neck Neck exam general surgery: Present: supple, trachea midline. Absent: lymphadenopathy - Respiratory Respiratory exam: Present: CTAB. Absent: accessory muscle use, rales, rhonchi, wheezes - Cardiovascular Cardiovascular exam: Present: RRR, +S1, +S2. Absent: diastolic murmur, gallop, rubs, systolic murmur - GI/Abdominal GI/Abdominal exam: Present: normal bowel sounds, soft, no peritoneal signs. Absent: distended, tenderness - Extremities Exam Extremities exam: Present: warm, radial pulses palpable and symetrical. Absent : calf tenderness, cyanotic, pedal edema - Neurological Exam Neurological exam: Present: CN II-XII intact, oriented X3, no focal deficits. Absent: pronater drift, facial droop, speech deficit - Skin Skin exam: Present: dry, intact Internal Medicine: Result - Labs CBC & Chem 7: 12/16/16 05:12 12/17/16 04:40 Labs: BMP 12/17/16 04:40 Sodium 137 Potassium 4.1 Chloride 106 Carbon Dioxide 27 BUN 32 H D Creatinine 1.21 H Glucose 61 L Calcium 8.5 L - ABG Interpretation ABG results: PT/INR, D-dimer PT 28.3 Seconds (9.4-12.1) H 12/16/16 05:12 Consult Discharge Plan - Plan Referrals: Yrn Avery MD [Primary Care Provider] - <Gerson Garcia - Last Filed: 12/17/16 18:45> - Assessment and plan (1) Acute metabolic encephalopathy Current Visit: Yes Status: Acute (2) Hypotension Current Visit: Yes Status: Acute Qualifiers: Hypotension type: orthostatic hypotension Qualified Code(s): I95.1 - Orthostatic hypotension (3) Diabetes mellitus Current Visit: Yes Status: Chronic Qualifiers: Diabetes mellitus type: type 2 Diabetes mellitus complication status: with hypoglycemia Diabetes mellitus complication detail: without coma Diabetes mellitus mcfp insulin use: with termite treater use Qualified Code(s): E11.649 - Type 2 diabetes mellitus with hypoglycemia without coma; Z79.4 - long-term ( current) use of insulin (4) A-fib Current Visit: Yes Status: Acute Qualifiers: Atrial fibrillation type: chronic Qualified Code(s): I48.2 - Chronic atrial fibrillation (5) Cirrhosis Current Visit: Yes Status: Acute Qualifiers: Hepatic cirrhosis type: unspecified hepatic cirrhosis Ascites presence: without ascites Qualified Code(s): K74.60 - Unspecified cirrhosis of liver (6) Dementia in Alzheimer's disease Current Visit: Yes Status: Acute - Constitutional Vitals: Temp Pulse Resp BP Pulse Ox 97.6 F 69 15 108/54 100 12/17/16 15:00 12/17/16 15:00 12/17/16 15:00 12/17/16 15:00 12/17/16 15:00 Internal Medicine: Result - Labs CBC & Chem 7: 12/16/16 05:12 12/17/16 04:40 Labs: BMP 12/17/16 04:40 Sodium 137 Potassium 4.1 Chloride 106 Carbon Dioxide 27 BUN 32 H D Creatinine 1.21 H Glucose 61 L Calcium 8.5 L - ABG Interpretation ABG results: ABG ABG pH 7.51 pH Units (7.32-7.45) H 12/17/16 11:32 ABG pCO2 32 mmHg (35-45) L 12/17/16 11:32 ABG pO2 69 mmHg (85-104) L 12/17/16 11:32 ABG O2 Saturation 95 % (95-98) 12/17/16 11:32 PT/INR, D-dimer PT 28.3 Seconds (9.4-12.1) H 12/16/16 05:12 - Attending Attestation I examined this patient and my medical decision-making was reviewed with the Resident Physician on 12/17/16. I agree with the documented findings, disposition and treatment plan as described except to the extent set forth below. Ms. Morgan is currently admitted for acute encephalopathy - most likely polypharmacy. She remains moderate to high risk due to potential for worsening neurologic status. Ms. Morgan was more alert this morning but somnolent during rounds. Denies pain. No dypsnea. No GI issues. Exam Somnolent. Mucus membranes moist Heart reg Lungs clear Abd soft I/P 1. Acute metabolic encephalopathy 2. Hypoglycemia Further diagnoses as above
[2016-12-17] MEDS: 0.9 % Sodium Chloride 1,000 ML IVC SCH (12:19)
--- NOTE | 2016-12-17 12:49 | Neurology - Consult Note ---
Date of Encounter: 12/17/16 Time of Encounter: 12:45 History of Present Illness Chief complaint: altered mental status HPI: Ms. Morgan is a 76 year old female with PMH Significant for HTN, DM, CAD, hypothyroidism, history of dementia, atrail fibrillation on coumadin anemia who presented to ER with acute onset of mental status change. Reportedly patient developed abdominal pain and slumped over and not responding but was breathing. Initial CT of head in the ER was read as no acute intracranial abnormality. Patient seen today at noon time and she is very sleepy. Easily arousable and answers simple questions and then drifted back to sleep. She says that she feels groggy but no headaches reported. No nuchal rigidity noted. No focal weakness. Able to repeat and speech appears fluent. Patient does have baseline cognitive impairment but severity of dementia unknown. Patient takes Rivatigmine daily Past Med Surg Social Fam HX - Past Medical History Medical history: COPD, dementia Psychiatric history: no psych history, depression - Past Surgical History Surgical History: AICD - Social History Smoking Status: Never smoker Smokeless Tobacco Status: No Alcohol use: none Drug use: none - Family History Mother Living Status: Hx Family Cardiac Disorders: Yes Medications and Allergies Allopurinol [Zyloprim 100 MG] 100 mg PO DAILY 07/03/16 [History] Cholecalciferol (D-3) [Vitamin D] 2,000 unit PO DAILY 07/03/16 [History] Clopidogrel [Plavix] 75 mg PO DAILY 07/03/16 [History] Desvenlafaxine Succinate [Pristiq] 50 mg PO DAILY 07/03/16 [History] Dextromethorphan HBr/Quinidine [Nuedexta 20-10 mg Capsule] 1 each PO BID [History] Divalproex (12 HR) [Depakote (12 HR)] 250 mg PO BID 07/03/16 [History] Ferrous Sulfate 325 mg PO DAILY 07/03/16 [History] Isosorbide MONOnitrate (24 HR) [Imdur] 30 mg PO DAILY 07/03/16 [History] Levothyroxine [Synthroid] 150 mcg PO DAILY 07/03/16 [History] Metoprolol Succinate 100 mg PO DAILY 07/03/16 [History] Multivitamin [Multi-Day Vitamins] 1 each PO DAILY 07/03/16 [History] Oxygen 2 l NS AD 07/03/16 [History] Quetiapine Fumarate [Seroquel] 50 mg PO QAM 07/03/16 [History] Ranitidine HCl [Zantac] 150 mg PO BID 07/03/16 [History] Rivastigmine Tartrate [Exelon] 3 mg PO BID 07/03/16 [History] Quetiapine Fumarate [Seroquel] 100 mg PO HS tablet 07/07/16 [Rx] Amoxicillin/Clavulanate [Augmentin] 875 mg PO BID 12/15/16 [History] Cranberry Fruit Extract [Cranberry] 425 mg PO DAILY 12/15/16 [History] Furosemide [Lasix] 40 mg PO DAILY 12/15/16 [History] Insulin Glargine,Hum.rec.anlog [Lantus Solostar] 35 unit SQ HS 12/15/16 [History ] Lisinopril [Zestril] 5 mg PO QID 12/15/16 [History] Tramadol HCl [Ultram] 50 mg PO TID PRN 12/15/16 [History] Warfarin [Coumadin] 3.5 mg PO QPM 12/15/16 [History] Allergies lorazepam Allergy (Verified 07/03/16 12:08) Anaphylaxis propoxyphene Allergy (Verified 07/03/16 12:08) Anaphylaxis Sulfa (Sulfonamide Antibiotics) Allergy (Verified 07/03/16 12:08) Anaphylaxis All Systems: A 10-system review of systems was performed and is negative for pertinent findings except as documented above in the HPI. Physical Examination - Vital Signs Vital Signs: Initial Vital Signs Temp Pulse Resp BP Pulse Ox 97.4 F L 70 12 79/48 97 12/15/16 11:23 12/15/16 11:23 12/15/16 11:23 12/15/16 11:23 12/15/16 11:23 Results - Laboratory Findings CBC and BMP: 12/16/16 05:12 12/17/16 04:40 Abnormal lab findings: Abnormal lab results RBC 3.77 M/mcL (3.82-4.97) L 12/16/16 05:12 Hgb 11.3 g/dL (11.5-15.4) L 12/16/16 05:12 Hct 34.8 % (35.3-44.9) L 12/16/16 05:12 PT 28.3 Seconds (9.4-12.1) H 12/16/16 05:12 BUN 32 mg/dL (7-20) H D 12/17/16 04:40 Creatinine 1.21 mg/dL (0.57-1.11) H 12/17/16 04:40 Est GFR ( Amer) 52 (> 60) L 12/17/16 04:40 Est GFR (Non-Af Amer) 43 (> 60) L 12/17/16 04:40 Glucose 61 mg/dL (70-99) L 12/17/16 04:40 Hemoglobin A1c 6.7 % (-5.6) H 12/16/16 05:12 Calcium 8.5 mg/dL (8.6-10.8) L 12/17/16 04:40 Ammonia 16 mcmol/L (18-72) L 12/16/16 13:02 Albumin 2.4 g/dL (3.5-5.0) L 12/15/16 12:15 Globulin 4.2 g/dL (2.4-3.5) H 12/15/16 12:15 Albumin/Globulin Ratio 0.6 (1.1-2.2) L 12/15/16 12:15 Urine Clarity Cloudy (Clear) A 12/15/16 13:56 Ur Specific [place] 1.008 (1.010-1.025) L 12/15/16 13:56 Ur Leukocyte Esterase Moderate (Negative) H 12/15/16 13:56 Urine Microscopic WBC 30-50 per hpf (0-3) H 12/15/16 13:56 Ur Squamous Epith Cells Many per lpf (None-Few) H 12/15/16 13:56 Consult Discharge Plan - Plan Referrals: Yrn Avery MD [Primary Care Provider] -
[2016-12-17 15:17] LABS: ABG Base Excess 2.9 mEq/L (-2.0 to 3.0); ABG HCO3 25.5 mEQ/L (21-27); ABG Oxygen Saturation 95 % (95-98); ABG PCO2 32 mmHg (35-45); ABG PH 7.51 pH Units (7.32-7.45); ABG PO2 69 mmHg (85-104); ABG TCO2 26.5 mEq/L (20-26); Blood Gas FiO2 38 %
[2016-12-17] MEDS ORDERED: Silvasorb 44.4 ML TUBE TP SCH (16:00)
[2016-12-18] MEDS: 0.9 % Sodium Chloride 1,000 ML IVC SCH (05:58)
[2016-12-18 07:52] VITALS: BP 154/83
--- NOTE | 2016-12-18 08:28 | Discharge Summary ---
<Subhash Alcaraz - Last Filed: 12/18/16 14:53> Date of Encounter: 12/18/16 Time of Encounter: 08:28 - Discharge Diagnosis (1) Altered mental status Priority: Primary Status: Acute Qualifiers: Altered mental status type: unspecified Qualified Code(s): R41.82 - Altered mental status, unspecified (2) Dementia in Alzheimer's disease Priority: Secondary Status: Acute (3) Recurrent UTI Priority: Secondary Status: Acute (4) Cirrhosis Priority: Secondary Status: Acute Qualifiers: Hepatic cirrhosis type: unspecified hepatic cirrhosis Ascites presence: without ascites Qualified Code(s): K74.60 - Unspecified cirrhosis of liver (5) Hypoglycemia due to type 2 diabetes mellitus Priority: Secondary Status: Acute (6) Hypotension Priority: Secondary Status: Acute Qualifiers: Hypotension type: orthostatic hypotension Qualified Code(s): I95.1 - Orthostatic hypotension (7) A-fib Priority: Secondary Status: Acute Qualifiers: Atrial fibrillation type: chronic Qualified Code(s): I48.2 - Chronic atrial fibrillation (8) DVT prophylaxis Priority: Secondary Status: Acute - Discharge Medications Prescriptions: Atorvastatin [Lipitor] 20 mg PO HS 30 Days Metoprolol Succinate 25 mg PO DAILY #10 tab.er.24h Home Medications: Allopurinol [Zyloprim 100 MG] 100 mg PO DAILY 07/03/16 [History] Cholecalciferol (D-3) [Vitamin D] 2,000 unit PO DAILY 07/03/16 [History] Clopidogrel [Plavix] 75 mg PO DAILY 07/03/16 [History] Ferrous Sulfate 325 mg PO DAILY 07/03/16 [History] Isosorbide MONOnitrate (24 HR) [Imdur] 30 mg PO DAILY 07/03/16 [History] Levothyroxine [Synthroid] 150 mcg PO DAILY 07/03/16 [History] Multivitamin [Multi-Day Vitamins] 1 each PO DAILY 07/03/16 [History] Oxygen 2 l NS AD 07/03/16 [History] Quetiapine Fumarate [Seroquel] 50 mg PO QAM 07/03/16 [History] Ranitidine HCl [Zantac] 150 mg PO BID 07/03/16 [History] Rivastigmine Tartrate [Exelon] 3 mg PO BID 07/03/16 [History] Quetiapine Fumarate [Seroquel] 100 mg PO HS tablet 07/07/16 [Rx] Amoxicillin/Clavulanate [Augmentin] 875 mg PO BID 12/15/16 [History] Cranberry Fruit Extract [Cranberry] 425 mg PO DAILY 12/15/16 [History] Warfarin [Coumadin] 3.5 mg PO QPM 12/15/16 [History] Atorvastatin [Lipitor] 20 mg PO HS 30 Days 12/18/16 [Rx] Insulin Glargine,Hum.rec.anlog [Lantus Solostar] 5 unit SQ HS #0 12/18/16 [Rx] Metoprolol Succinate 25 mg PO DAILY #10 tab.er.24h 12/18/16 [Rx] Allergies/Adverse Reactions: Allergies lorazepam Allergy (Verified 07/03/16 12:08) Anaphylaxis propoxyphene Allergy (Verified 07/03/16 12:08) Anaphylaxis Sulfa (Sulfonamide Antibiotics) Allergy (Verified 07/03/16 12:08) Anaphylaxis Date of admission: 12/16/16 11:12 Primary care physician: Yrn Avery MD Consults: 12/16/16 11:37 Consult to Wound Care [CONS] Routine Reason for Consult: STAGE 2 WOUND TO COCCYX AND LEFT FOOT Call Completed: No 12/16/16 15:28 Consult to Interpret Exam [CONS] Routine Consulting Provider: Andrew Tenorio Consult to Interpret Exam: Interpret EEG 12/17/16 14:23 Consult to Neurology [CONS] Routine Consulting Provider: Neurology [facility] Reason for Consult: change in mental status, has baseline dementia. Call Completed: Yes Discharging clinician: Subhash Alcaraz Anticipated date of discharge: 12/18/16 - Patient Status Disposition: Transfer SNF Condition: Fair Functional capacity at discharge: uses cane/walker (fall precaution, up with assistance) Overall status at discharge: patient is progressing back to baseline - Discharge Instructions Instructions: Metoprolol (By mouth), Atorvastatin (By mouth), Atrial Fibrillation (DC), Acute Kidney Injury (DC), Acute Kidney Injury (GEN), Urinary Tract Infection in Women (DC), Diabetes Mellitus Type 2 in Adults (DC), Chronic Obstructive Pulmonary Disease (DC), Chronic Hypertension (DC), Pneumonia (DC), Acute Kidney Injury, Surgical Assist (GEN) Follow Up With: Yrn Avery MD [Primary Care Provider] - (F/u with pt's PCP in a week for hospital d/c f/u and dementia. Go over home medication list, DM II and HTN) - Diet and Activity Activity: resume usual activities as tolerated Diet: diabetic diet, low fat, low cholesterol, low salt diet Hospital course: Ms. Morgan is a 76 year old female with dementia and a-fib on coumadin, [facility] for change in mental status, she has hx of recurrent UTI, blood and urine culture negative, no sepsis, non infectious etiology, she was hypotensive and hypoglycemic, therefore we adjusted his basal insulin and HTN meds, her glucose and BP improved, CT head and EEG did not show acute abnormalities and seizure, respectively, CT abd showed incidental finding of cirrhosis, hepatitis panel negative, ammonia level not elevated, her mental status back to baseline once we adjusted medication and with IV fluid along with improvement of glucose and BP levels, likely her AMS was due to polypharmacy and low BP/glucose level, therefore she will be d/c [facility] with adjusted med list in stable condition. - Time Spent with Patient Total time spent providing and/or coordinating discharge services: - Constitutional Vitals: Temp Pulse Resp BP Pulse Ox 98.3 F 99 19 154/83 96 12/18/16 07:46 12/18/16 07:46 12/18/16 07:46 12/18/16 07:46 12/18/16 07:46 General appearance: Present: A&O X 1, no acute distress, obese, answers questions appropriately (somewhat, better than yesterday) - Head Head exam: Present: atraumatic, normocephalic - Eye Eye exam: Present: PERRL, conjuntiva pink, sclera anicteric Pupils: Present: PERRL - Neck Neck exam general surgery: Present: supple, trachea midline. Absent: lymphadenopathy - Respiratory Respiratory exam: Present: CTAB. Absent: accessory muscle use, rales, rhonchi, wheezes - Cardiovascular Cardiovascular exam: Present: RRR, +S1, +S2. Absent: diastolic murmur, gallop, rubs, systolic murmur - GI/Abdominal GI/Abdominal exam: Present: normal bowel sounds, soft, no peritoneal signs. Absent: distended, tenderness - Extremities Exam Extremities exam: Present: warm, radial pulses palpable and symetrical. Absent : calf tenderness, cyanotic, pedal edema - Neurological Exam Neurological exam: Present: altered, CN II-XII intact, no focal deficits. Absent: alert, oriented X3, pronater drift, facial droop, speech deficit - Skin Skin exam: Present: dry <Gerson Garcia A - Last Filed: 12/18/16 19:04> - Discharge Diagnosis (1) Acute metabolic encephalopathy Priority: Primary Status: Acute (2) Hypotension Status: Acute Qualifiers: Hypotension type: orthostatic hypotension Qualified Code(s): I95.1 - Orthostatic hypotension (3) Diabetes mellitus Priority: Secondary Status: Chronic Qualifiers: Diabetes mellitus type: type 2 Diabetes mellitus complication status: with hypoglycemia Diabetes mellitus complication detail: without coma Diabetes mellitus intermediate frame tender insulin use: with intermediate frame tender use Qualified Code(s): E11.649 - Type 2 diabetes mellitus with hypoglycemia without coma; Z79.4 - terminal superintendent ( current) use of insulin (4) A-fib Status: Acute Qualifiers: Atrial fibrillation type: chronic Qualified Code(s): I48.2 - Chronic atrial fibrillation (5) Cirrhosis Status: Acute Qualifiers: Hepatic cirrhosis type: unspecified hepatic cirrhosis Ascites presence: without ascites Qualified Code(s): K74.60 - Unspecified cirrhosis of liver (6) Dementia in Alzheimer's disease Status: Acute Date of admission: 12/16/16 11:12 Primary care physician: Yrn Avery MD Consults: 12/16/16 11:37 Consult to Wound Care [CONS] Routine Reason for Consult: STAGE 2 WOUND TO COCCYX AND LEFT FOOT Call Completed: No 12/16/16 15:28 Consult to Interpret Exam [CONS] Routine Consulting Provider: Andrew Tenorio Consult to Interpret Exam: Interpret EEG 12/17/16 14:23 Consult to Neurology [CONS] Routine Consulting Provider: Neurology [facility] Reason for Consult: change in mental status, has baseline dementia. Call Completed: Yes Hospital course: Ms. Morgan is a 76 year old female - Time Spent with Patient Total time spent providing and/or coordinating discharge services: 39min - Constitutional Vitals: Temp Pulse Resp BP Pulse Ox 98.3 F 99 19 154/83 96 12/18/16 07:46 12/18/16 07:46 12/18/16 07:46 12/18/16 07:46 12/18/16 07:46 - Attending Attestation I examined this patient and my medical decision-making was reviewed with the Resident Physician on 12/18/16. I agree with the documented findings, disposition and treatment plan as described except to the extent set forth below. Ms. Morgan is more alert today. She is unable to have MRI due to pacer. Neuro eval appreciated. Exam Alert. Comfortable Heart reg Lungs clear Plan D/C today - most likely was polypharmacy and dementia as issues Pt stable for return to ECF.
[2016-12-18] MEDS: Venlafaxine XR (24 HR) 75 MG CAP.ER.24H PO SCH (08:44)
[2016-12-18] MEDS: Isosorbide MONOnitrate (24 HR) 30 MG TAB.ER.24H PO SCH (08:44)
[2016-12-18] MEDS: Multivit/Ca/Min/Fe/FA 1 TAB TABLET PO SCH (08:44)
[2016-12-18] MEDS: Cholecalciferol (D-3) 1,000 UNIT TABLET PO SCH (08:44)
[2016-12-18] MEDS: CRANBERRY 425 MG PO SCH (08:44)
[2016-12-18] MEDS: Rivastigmine Tartrate (oral) 1.5 MG CAPSULE PO SCH (08:44)
[2016-12-18] MEDS: Famotidine 20 MG TABLET PO SCH (08:44)
[2016-12-18] MEDS: Insulin LISPRO 300 UNITS/3 ML VIAL SQ SCH ×2 (08:54→12:18)
--- NOTE | 2016-12-18 11:29 | Physician Discharge Referral ---
ExtendedCare Referral Info Transfer To: SNF Provider in Charge: Dr. Garcia Provider in Charge after Transfer: PCP Institutional Level of Care: Skilled - Diagnosis (1) Altered mental status Priority: Primary Status: Acute (2) Dementia in Alzheimer's disease Status: Acute (3) Recurrent UTI Status: Acute (4) Cirrhosis Status: Acute (5) Hypoglycemia due to type 2 diabetes mellitus Status: Acute (6) Hypotension Status: Acute (7) A-fib Status: Acute (8) DVT prophylaxis Status: Acute - Transfer Medications Prescriptions: Atorvastatin [Lipitor] 20 mg PO HS 30 Days Metoprolol Succinate 25 mg PO DAILY #10 tab.er.24h Home Medications: Allopurinol [Zyloprim 100 MG] 100 mg PO DAILY 07/03/16 [History] Cholecalciferol (D-3) [Vitamin D] 2,000 unit PO DAILY 07/03/16 [History] Clopidogrel [Plavix] 75 mg PO DAILY 07/03/16 [History] Ferrous Sulfate 325 mg PO DAILY 07/03/16 [History] Isosorbide MONOnitrate (24 HR) [Imdur] 30 mg PO DAILY 07/03/16 [History] Levothyroxine [Synthroid] 150 mcg PO DAILY 07/03/16 [History] Multivitamin [Multi-Day Vitamins] 1 each PO DAILY 07/03/16 [History] Oxygen 2 l NS AD 07/03/16 [History] Quetiapine Fumarate [Seroquel] 50 mg PO QAM 07/03/16 [History] Ranitidine HCl [Zantac] 150 mg PO BID 07/03/16 [History] Rivastigmine Tartrate [Exelon] 3 mg PO BID 07/03/16 [History] Quetiapine Fumarate [Seroquel] 100 mg PO HS tablet 07/07/16 [Rx] Amoxicillin/Clavulanate [Augmentin] 875 mg PO BID 12/15/16 [History] Cranberry Fruit Extract [Cranberry] 425 mg PO DAILY 12/15/16 [History] Warfarin [Coumadin] 3.5 mg PO QPM 12/15/16 [History] Atorvastatin [Lipitor] 20 mg PO HS 30 Days 12/18/16 [Rx] Insulin Glargine,Hum.rec.anlog [Lantus Solostar] 5 unit SQ HS #0 12/18/16 [Rx] Metoprolol Succinate 25 mg PO DAILY #10 tab.er.24h 12/18/16 [Rx] Allergies/Adverse Reactions: Allergies lorazepam Allergy (Verified 07/03/16 12:08) Anaphylaxis propoxyphene Allergy (Verified 07/03/16 12:08) Anaphylaxis Sulfa (Sulfonamide Antibiotics) Allergy (Verified 07/03/16 12:08) Anaphylaxis - Respiratory Orders Oxygen / L per min (2) Smoking Cessation: Smoking cessation has been advised. For more information, call the [place] Tobacco Quit Line at 0-784-ABEO-NOW. - Ancillary Orders May use pressure relief devices daily prn, May go on AYANNA w/family/respon democrat w /meds at nurse discretion PRN, May consult with Dentist, Automobiles Salesperson, Payroll Technician PRN - Mobility Orders Ambulate (with wheelchair, up with assistance, fall precaution) - Rehabiliation Orders Rehab Potential: Fair Rehab Orders: ROM Exercises, Evaluation for Physical Therapy, Evaluation for Occupational Therapy - Treatments Skin tear care topically daily PRN per policy, May check for fecal impaction rectally daily PRN, Fleet enema rectally every other day PRN cleansing purposes - Diet Orders No Added Salt (JUSTIN), Cardiac CERTIFICATION: I certify that the transfer of the above named patient to an Extended Care Facility is necessary for the continuing treatment of the diagnosis listed. The above information is true and accurate reflection of patient's current condition. Confidential - Redisclosure prohibited without a patient's written consent.
[2016-12-19 14:44] LABS: Hepatitis C Virus Antibody Nonreactive (Nonreactive)
[2016-12-19 15:27] LABS: Hepatitis A Antibody IgM Nonreactive (Nonreactive); Hepatitis B Core IgM Nonreactive (Nonreactive)
== END 2016-12-18 14:00 | DRG 92 ==
LOC: 2NENU 11:19 → EMEROO 11:19 → SUATTDRO 16:52 → 2NENU 17:48
PROVIDERS: ADMIT Internal Medicine; ATTEND Internal Medicine

== ENCOUNTER 2017-02-18 16:59 | Inpatient (IN) ==
[2017-02-18] MEDS ORDERED: 0.9 % Sodium Chloride 1,000 ML IVC ONE (17:42)
--- NOTE | 2017-02-18 17:45 | Emergency Department Note ---
Disposition Clinical Impression: Influenza A, Atrial fibrillation with RVR, Hypomagnesemia Disposition: Admitted As Inpatient Condition: Fair General Adult HPI - General Chief complaint: ED Arrhythmia/Palpitations Stated complaint: Irregular HR, Nausea Time Seen by Provider: 02/18/17 17:02 Source: patient, family, EMS Mode of arrival: EMS Limitations: altered mental status Nursing Notes Reviewed: Yes Vital Signs Reviewed: Yes - History of Present Illness HPI Narrative: Ms. Morgan is the 76 year old female that [facility] for irregular rhythm and reported nausea. Past medical history of COPD , dementia, diabetes, CAD s/p 4 stents and AICD placement, CKD, hypothyroidism, and atrial fib. Noted to see [facility]. Unable to obtain accurate history from patient, patient's and children are available for further history. Sick contacts include influenza at extended care facility; patient noted to be positive and started on Tamiflu last night. notes patient complaining of nausea yesterday and today. Patient noted to have regular heart rate today and transferred to ED via EMS for further evaluation. Upon arrival patient was found to be in atrial fib, hypertensive and having a fever of 101.2. 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 Radiation: non-radiation Pain Scale: 8 Treatments Prior to Arrival: other (reported that patient started on Tamiflu yesterday.) - Related Data Home Medications Medication Instructions Recorded Confirmed Allopurinol [Zyloprim 100 MG] 100 mg PO DAILY 07/03/16 02/18/17 Cholecalciferol (D-3) [Vitamin D] 2,000 unit PO DAILY 07/03/16 02/18/17 Clopidogrel [Plavix] 75 mg PO DAILY 07/03/16 02/18/17 Ferrous Sulfate 325 mg PO DAILY 07/03/16 02/18/17 Isosorbide MONOnitrate (24 HR) 30 mg PO DAILY 07/03/16 02/18/17 [Imdur] Levothyroxine [Synthroid] 150 mcg PO QAM 07/03/16 02/18/17 Multivitamin [Multi-Day Vitamins] 1 each PO DAILY 07/03/16 02/18/17 Oxygen 2 l NS AD 07/03/16 02/18/17 Quetiapine Fumarate [Seroquel] 50 mg PO QAM 07/03/16 02/18/17 Ranitidine HCl [Zantac] 150 mg PO BID 07/03/16 02/18/17 Rivastigmine Tartrate [Exelon] 3 mg PO BID 07/03/16 02/18/17 Cranberry Fruit Extract [Cranberry] 425 mg PO DAILY 12/15/16 02/18/17 Atorvastatin Calcium [Lipitor] 20 mg PO HS 02/18/17 02/18/17 Cefuroxime Axetil [Cefuroxime] 250 mg PO BID 02/18/17 02/18/17 Insulin Glargine,Hum.rec.anlog 20 unit SQ HS 02/18/17 02/18/17 [Lantus Solostar] Insulin NPH, HUMAN [HumuLIN N] 5 unit SQ TIDWM 02/18/17 02/18/17 Oseltamivir [Tamiflu] 75 mg PO DAILY 02/18/17 02/18/17 Warfarin [Coumadin] 4 mg PO 1800 02/18/17 02/18/17 Previous Rx's Medication Instructions Recorded Quetiapine Fumarate [Seroquel] 100 mg PO HS tablet 07/07/16 Metoprolol Succinate 25 mg PO DAILY #10 tab.er.24h 12/18/16 Allergies Allergy/AdvReac Type Severity Reaction Status Date / Time lorazepam Allergy Anaphylaxis Verified 07/03/16 12:08 propoxyphene Allergy Anaphylaxis Verified 07/03/16 12:08 Sulfa (Sulfonamide Allergy Anaphylaxis Verified 07/03/16 12:08 Antibiotics) Limitations: ROS unobtainable due to patients medical condition Past Medical History - Past Medical History Attestation: No The following information was validated with the patient. Source: old records reviewed, obtained from family, nursing notes reviewed Medical history: Reports: atrial fibrillation, COPD, dementia, diabetes, myocardial infarction, renal disease, thyroid disease Surgical history: Reports: angioplasty/stent (4 stents (last placed 7 yrs ago)) , hysterectomy, thyroidectomy (and parathroidectomy), AICD Psychiatric history: Reports: depression - Social History Smoking Status: Former smoker (smoked 3ppd for 30 years, quits 33 years ago.) Smokeless Tobacco Status: No Alcohol use: Reports: none Drug use: Reports: none Physical Exam - General Limitations: altered mental status General appearance: alert, in no apparent distress, other - Head Head exam: atraumatic, normocephalic - Eye Eye exam: Present: normal appearance, EOMI - ENT ENT exam: normal exam, mucous membranes moist, normal external ear exam - Neck Neck exam: Present: normal inspection, full ROM - Chest Chest inspection: Present: normal inspection, symmetric chest wall rise - Respiratory Respiratory exam: Present: wheezes (with cough). Absent: respiratory distress - Cardiovascular Cardiovascular exam: Present: tachycardia, irregular rhythm - Abdominal Exam Abdominal exam: Present: soft, Non-Tender, hypoactive bowel sounds. Absent: guarding, rebound, rigidity - Extremities Exam Extremities exam: Present: normal inspection, full ROM. Absent: tenderness, pedal edema - Back Exam Back exam: Present: normal inspection. Absent: tenderness - Neurological Exam Neurological exam: Present: alert - Psychiatric Psychiatric exam: Present: agitated (Not cooperative) - Skin Skin exam: Present: warm, dry, intact Course Course Narrative: Patient presented from [facility] with temp of 101.2, pulse 160, BP 133/102. Dementia at baseline, per more "combative" today, complaining of nausea. Noted to have irregular HR at [facility]. Noted Influenza exposure from [facility], per report patient flu positive and started on Tamiflu last night - Reevaluation(s) Reevaluation #1: Patient found to have elevated troponin of 0.04 and hypomagnesium of 1.2. Previous troponin 0.01. Magnesium replaced. Time: 18:25 Vital Signs Temperature 101.2 F H 02/18/17 17:10 Pulse Rate 160 02/18/17 17:10 Respiratory Rate 20 02/18/17 17:10 Blood Pressure 133/102 02/18/17 17:10 O2 Sat by Pulse Oximetry 95 02/18/17 17:10 Temperature 99.3 F 02/19/17 12:00 Pulse Rate 85 02/19/17 12:00 Respiratory Rate 18 02/19/17 12:00 Blood Pressure 139/75 02/19/17 12:00 O2 Sat by Pulse Oximetry 96 02/19/17 12:00 Oxygen Delivery Oxygen Delivery Nasal Cannula Medical Decision Making - Lab Data Lab results reviewed: Yes I reviewed the patient's lab results. Result diagrams: 02/19/17 10:48 02/19/17 00:32 Lab Results 02/18/17 02/18/17 02/18/17 Range/Units 17:35 17:35 17:35 WBC 7.2 (4.3-11.1) K/mcL RBC 3.43 L (3.82-4.97) M/mcL Hgb 10.2 L (11.5-15.4) g/dL Hct 32.2 L (35.3-44.9) % MCV 93.9 (83.0-100.0) fL MCH 29.7 (28.0-33.3) pg MCHC 31.7 (31.6-35.5) g/dL RDW 14.2 (11.5-14.5) % Plt Count 208 (140-400) K/mcL MPV 11.2 (9.4-12.4) fL Immature Gran % 0.3 (0-4) % Seg Neutrophils % 81.1 % Lymphocytes % 10.4 % Monocytes % 5.7 % Eosinophils % 2.1 % Basophils % 0.4 % Neutrophils # 5.9 (1.6-8.9) K/mcL Lymphocytes # 0.8 (0.6-4.6) K/mcL Monocytes # 0.4 (0.0-1.3) K/mcL Eosinophils # 0.2 (0.0-0.6) K/mcL Basophils # 0.0 (0.0-0.2) K/mcL PT 19.1 H (9.4-12.1) Seconds INR 1.7 APTT 31.9 (26.0-36.0) Seconds Sodium 135 L (136-145) mEq/L Potassium 4.8 H (3.5-4.5) mEq/L Chloride 102 (98-109) mEq/L Carbon Dioxide 25 (19-29) mEq/L BUN 12 (7-20) mg/dL Creatinine 1.08 (0.57-1.11) mg/dL Est GFR ( Amer) 60 (> 60) Est GFR (Non-Af Amer) 49 L (> 60) BUN/Creatinine Ratio 11 (6-26) Glucose 322 H (70-99) mg/dL Calculated Osmolality 292 (280-300) Calcium 9.0 (8.6-10.8) mg/dL Magnesium 1.2 L (1.6-2.6) mg/dL Troponin I (0-0.03) ng/mL TSH 3.050 (0.350-4.840) mcIU/mL 02/18/17 Range/Units 17:35 WBC (4.3-11.1) K/mcL RBC (3.82-4.97) M/mcL Hgb (11.5-15.4) g/dL Hct (35.3-44.9) % MCV (83.0-100.0) fL MCH (28.0-33.3) pg MCHC (31.6-35.5) g/dL RDW (11.5-14.5) % Plt Count (140-400) K/mcL MPV (9.4-12.4) fL Immature Gran % (0-4) % Seg Neutrophils % % Lymphocytes % % Monocytes % % Eosinophils % % Basophils % % Neutrophils # (1.6-8.9) K/mcL Lymphocytes # (0.6-4.6) K/mcL Monocytes # (0.0-1.3) K/mcL Eosinophils # (0.0-0.6) K/mcL Basophils # (0.0-0.2) K/mcL PT (9.4-12.1) Seconds INR APTT (26.0-36.0) Seconds Sodium (136-145) mEq/L Potassium (3.5-4.5) mEq/L Chloride (98-109) mEq/L Carbon Dioxide (19-29) mEq/L BUN (7-20) mg/dL Creatinine (0.57-1.11) mg/dL Est GFR ( Amer) (> 60) Est GFR (Non-Af Amer) (> 60) BUN/Creatinine Ratio (6-26) Glucose (70-99) mg/dL Calculated Osmolality (280-300) Calcium (8.6-10.8) mg/dL Magnesium (1.6-2.6) mg/dL Troponin I 0.04 H* (0-0.03) ng/mL TSH (0.350-4.840) mcIU/mL Abnormal lab results RBC 3.43 M/mcL (3.82-4.97) L 02/18/17 17:35 Hgb 10.2 g/dL (11.5-15.4) L 02/18/17 17:35 Hct 32.2 % (35.3-44.9) L 03/22/17 17:35 PT 19.1 Seconds (9.4-12.1) H 02/18/17 17:35 Sodium 135 mEq/L (136-145) L 02/18/17 17:35 Potassium 4.8 mEq/L (3.5-4.5) H 02/18/17 17:35 Est GFR (Non-Af Amer) 49 (> 60) L 02/18/17 17:35 Glucose 322 mg/dL (70-99) H 02/18/17 17:35 Magnesium 1.2 mg/dL (1.6-2.6) L 02/18/17 17:35 Troponin I 0.04 ng/mL (0-0.03) H* 02/18/17 17:35 - EKG Data EKG #1 EKG attestation: Yes I reviewed and interpreted this EKG. Rate: tachycardia Rhythm: A.Fib Critical Care Time Critical Care Time: Yes Total Critical Care Time: 40 Attestation: Critical care performed: Time is exclusive of separately billable procedures. Time includes: direct patient care, patient reassessment, coordination of patient care, interpretation of data (laboratory data, radiology data, and respiratory data), review of patient's medical records, medical consultation and documentation of patient care. Procedures included in critical care time: Procedures excluded from critical care time: Attestation Statement - Attestation Attestation: I examined this patient and my medical decision-making was reviewed with the FLUX TUBE ATTENDANT/PA/Advanced Practice Nurse/Resident Physician. I agree with the documented findings, disposition and treatment plan as described except to the extent set forth below. 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 fib RVR. Patient does not give much of a history of arrival she was tachycardic febrile with a 101.9. On exam lungs were clear tachycardic vital signs nursing notes reviewed. Patient was worked up in initial treatment was started in the ER and subsequently admitted to the hospitalist service.
[2017-02-18 17:50] LABS: Basophils % 0.4 %; Eosinophils # 0.2 K/mcL (0.0-0.6); Eosinophils % 2.1 %; Hematocrit 32.2 % (35.3-44.9); Hemoglobin 10.2 g/dL (11.5-15.4); Immature Granulocytes % 0.3 % (0-4); Lymphocytes # 0.8 K/mcL (0.6-4.6); Lymphocytes % 10.4 %; Mean Corpuscular HGB Conc 31.7 g/dL (31.6-35.5); Mean Corpuscular Hemoglobin 29.7 pg (28.0-33.3); Mean Corpuscular Volume 93.9 fL (83.0-100.0); Mean Platelet Volume 11.2 fL (9.4-12.4); Monocytes # 0.4 K/mcL (0.0-1.3); Monocytes % 5.7 %; Neutrophils # 5.9 K/mcL (1.6-8.9); Platelet Count 208 K/mcL (140-400); Red Blood Count 3.43 M/mcL (3.82-4.97); Red Cell Distribution Width 14.2 % (11.5-14.5); Segmented Neutrophils % 81.1 %
[2017-02-18 17:51] LABS: INR 1.7; Prothrombin Time 19.1 Seconds (9.4-12.1)
[2017-02-18 17:54] LABS: Activated Partial Thrombo Time 31.9 Seconds (26.0-36.0)
[2017-02-18] MEDS ORDERED: Haloperidol Lactate 5 MG/ML VIAL IVP ONE (17:56)
[2017-02-18 17:59] LABS: Magnesium 1.2 mg/dL (1.6-2.6); Potassium 4.8 mEq/L (3.5-4.5)
[2017-02-18 18:21] LABS: Thyroid Stimulating Hormone 3.05 mcIU/mL (0.350-4.840)
[2017-02-18] MEDS ORDERED: Aspirin 325 MG TABLET PO ONE (19:09)
--- NOTE | 2017-02-18 23:44 | Internal Med History&Physical ---
Date of Encounter: 02/18/17 Time of Encounter: 23:00 Assessment and Plan (1) Atrial fibrillation with RVR Current visit: Yes Status: Acute Treat with done diltiazem infusion. The rate is controlled, will transition to increased dose of metoprolol. TSH is normal. Consider echocardiogram. Continue anticoagulation with warfarin (2) Influenza A Current visit: Yes Status: Acute Continue Tamiflu (3) Hypomagnesemia Current visit: Yes Status: Acute Replenish magnesium (4) Diabetes mellitus Current visit: Yes Status: Chronic Sliding scale insulin Qualifiers: Diabetes mellitus type: type 2 Diabetes mellitus complication status: with unspecified complications Diabetes mellitus fci insulin use: with knot bumper use Qualified Code(s): E11.8 - Type 2 diabetes mellitus with unspecified complications; Z79.4 - FDC (current) use of insulin (5) Hypothyroidism Current visit: No Status: Chronic Continue Synthroid. TSH is normal. Qualifiers: Hypothyroidism type: unspecified Qualified Code(s): E03.9 - Hypothyroidism , unspecified (6) Dementia Current visit: Yes Status: Chronic Supportive care Qualifiers: Dementia type: unspecified type Dementia behavioral disturbance: without behavioral disturbance Qualified Code(s): F03.90 - Unspecified dementia without behavioral disturbance (7) CHF (congestive heart failure) Current visit: Yes Status: Acute Possibly secondary to A. fib with RVR. Treat with Lasix. Obtain echocardiogram. Consider cardiology consultation. Qualifiers: Congestive heart failure type: unspecified congestive heart failure type Congestive heart failure chronicity: unspecified congestive heart failure chronicity Qualified Code(s): I50.9 - Heart failure, unspecified (8) Fever Current visit: Yes Status: Acute Possibly secondary to influenza. Patient seemed to have history of multiple urinary tract infections in the past. Hence will obtain urinalysis/culture. Qualifiers: Fever type: unspecified Qualified Code(s): R50.9 - Fever, unspecified (9) Elevated troponin Current visit: Yes Status: Acute Likely secondary to atrial fibrillation with RVR. Trend troponin Internal Medicine - H&P: HPI Chief complaint: Heart rate of 130-150 Admitted From: Emergency Dept Plans for Post Hospital Care: Transfer [facility] History of present illness: Ms. Morgan is a 76 year old female With Past medical history of COPD, dementia, diabetes, CAD s/p 4 stents and AICD placement, CKD, hypothyroidism, and atrial fibrillation. She was sent from [facility] via EMS for irregular heart rate rate of 130 to 150. Patient has dementia and is not able to attend to details. No family members at the bedside. I have reviewed the note from the emergency department and the residential. She apparently was some started on Tamiflu for influenza. Apparently reported some nausea. She is not able to give any clinical details to me at my evaluation. In the emergency department, patient was found to atrial fibrillation with rapid ventricular response with heart rate of 150 beats per minute. She was apparently febrile with temperature of 101.2. She was started on diltiazem infusion and admitted to the hospitalist service for further management. Code status DNR CC, [facility] Past Med Surg Social Fam HX - Past Medical History Medical history: atrial fibrillation, COPD, dementia, diabetes, myocardial infarction, renal disease, thyroid disease Psychiatric history: depression - Past Surgical History Surgical History: angioplasty/stent (4 stents (last placed 7 yrs ago)), hysterectomy, thyroidectomy (and parathroidectomy), AICD - Social History Smoking Status: Former smoker (smoked 3ppd for 30 years, quits 33 years ago.) Smokeless Tobacco Status: No Alcohol use: none Drug use: none - Family History Mother Living Status: Hx Family Cardiac Disorders: Yes Internal Medicine - H&P: Meds Allopurinol [Zyloprim 100 MG] 100 mg PO DAILY 07/03/16 [History] Cholecalciferol (D-3) [Vitamin D] 2,000 unit PO DAILY 07/03/16 [History] Clopidogrel [Plavix] 75 mg PO DAILY 07/03/16 [History] Ferrous Sulfate 325 mg PO DAILY 07/03/16 [History] Isosorbide MONOnitrate (24 HR) [Imdur] 30 mg PO DAILY 07/03/16 [History] Levothyroxine [Synthroid] 150 mcg PO QAM 07/03/16 [History] Multivitamin [Multi-Day Vitamins] 1 each PO DAILY 07/03/16 [History] Oxygen 2 l NS AD 07/03/16 [History] Quetiapine Fumarate [Seroquel] 50 mg PO QAM 07/03/16 [History] Ranitidine HCl [Zantac] 150 mg PO BID 07/03/16 [History] Rivastigmine Tartrate [Exelon] 3 mg PO BID 07/03/16 [History] Quetiapine Fumarate [Seroquel] 100 mg PO HS tablet 07/07/16 [Rx] Cranberry Fruit Extract [Cranberry] 425 mg PO DAILY 12/15/16 [History] Metoprolol Succinate 25 mg PO DAILY #10 tab.er.24h 12/18/16 [Rx] Atorvastatin Calcium [Lipitor] 20 mg PO HS 02/18/17 [History] Cefuroxime Axetil [Cefuroxime] 250 mg PO BID 02/18/17 [History] Insulin Glargine,Hum.rec.anlog [Lantus Solostar] 20 unit SQ HS 02/18/17 [History ] Insulin NPH, HUMAN [HumuLIN N] 5 unit SQ TIDWM 02/18/17 [History] Oseltamivir [Tamiflu] 75 mg PO DAILY 02/18/17 [History] Warfarin [Coumadin] 4 mg PO 1800 02/18/17 [History] Allergies lorazepam Allergy (Verified 07/03/16 12:08) Anaphylaxis propoxyphene Allergy (Verified 07/03/16 12:08) Anaphylaxis Sulfa (Sulfonamide Antibiotics) Allergy (Verified 07/03/16 12:08) Anaphylaxis ROS unobtainable: due to mental status All Systems PM: 10 point review of systems could not be obtained due to dementia - Constitutional Vitals: Temp Pulse Resp BP Pulse Ox 99.8 F H 89 18 107/54 97 02/18/17 21:16 02/18/17 21:16 02/18/17 21:16 02/18/17 21:16 02/18/17 21:16 Exam: General: Not in acute distress at the time of my evaluation. Somnulent HEENT: No conjunctival palor or scleral icterus Neck: No obvious neck swellings Lungs: Clear to auscultation Cardiac: Irregular rhythm. No significant murmurs Abdomen: Soft, non tender. Bowel sounds present Neurological: Not able to follow commands Psych: Not able to follow commands Extremities: trace leg edema Skin: No generalized rash Internal Med - H&P Results - Labs CBC & Chem 7: 02/19/17 00:32 02/18/17 17:35 - EKG Data -: EKG Interpreted by Myself - EKG Data EKG comments: Atrial fibrillation with rapid ventricular response with heart rate of 150 / min 02/19/17 00:37 - Impressions ITS Impressions Chest X-Ray 02/18/17 17:02 IMPRESSION: Cardiomegaly with mild to moderate CHF. D/ / Joe Watson MD / Joe Watson MD Interpreting Provider: Joe Watson MD
[2017-02-18] MEDS ORDERED: NON-FORMULARY MEDICATION 1 EACH EACH (Oxygen [Oxygen] 2 L) NS SCH (23:45)
[2017-02-18] MEDS ORDERED: Naloxone 0.4 MG/ML INJ IVP PRN (23:46)
[2017-02-18] MEDS ORDERED: *HR* Dextrose 50 % in Water (Syg) 50 ML SYRINGE IVP PRN (23:51)
[2017-02-18] MEDS ORDERED: Dextrose Gel 15 GM PO PRN ×2 (23:51)
[2017-02-19] MEDS ORDERED: Insulin LISPRO 300 UNITS/3 ML VIAL SQ SCH
[2017-02-19] MEDS ORDERED: Furosemide 20 MG/2 ML VIAL IVP ONE (00:51)
[2017-02-19 01:03] LABS: Basophils % 0.4 %; Eosinophils # 0.1 K/mcL (0.0-0.6); Eosinophils % 1.1 %; Hematocrit 33.5 % (35.3-44.9); Hemoglobin 10.5 g/dL (11.5-15.4); Immature Granulocytes % 0.7 % (0-4); Lymphocytes # 1.3 K/mcL (0.6-4.6); Lymphocytes % 17.8 %; Mean Corpuscular HGB Conc 31.3 g/dL (31.6-35.5); Mean Corpuscular Hemoglobin 29.9 pg (28.0-33.3); Mean Corpuscular Volume 95.4 fL (83.0-100.0); Mean Platelet Volume 11.4 fL (9.4-12.4); Monocytes # 0.5 K/mcL (0.0-1.3); Monocytes % 6.6 %; Neutrophils # 5.5 K/mcL (1.6-8.9); Platelet Count 201 K/mcL (140-400); Red Blood Count 3.51 M/mcL (3.82-4.97); Red Cell Distribution Width 14.3 % (11.5-14.5); Segmented Neutrophils % 73.4 %
[2017-02-19 01:06] LABS: INR 1.7; Prothrombin Time 18.3 Seconds (9.4-12.1)
[2017-02-19 01:18] LABS: Calcium 8.7 mg/dL (8.6-10.8); Magnesium 1.7 mg/dL (1.6-2.6); Phosphorous 3.9 mg/dL (2.3-4.7); Potassium 4.5 mEq/L (3.5-4.5)
[2017-02-19] MEDS: Cefuroxime PO 250 MG TABLET PO SCH ×2 (08:18→21:50)
[2017-02-19] MEDS: Insulin LISPRO 300 UNITS/3 ML VIAL SQ SCH ×4 (08:18→21:48)
[2017-02-19] MEDS: Oseltamivir Phosphate 30 MG CAPSULE PO SCH ×2 (08:18→21:50)
[2017-02-19] MEDS: Cholecalciferol (D-3) 1,000 UNIT TABLET PO SCH (08:19)
[2017-02-19] MEDS: Famotidine 20 MG TABLET PO SCH ×2 (08:19→11:33)
[2017-02-19] MEDS: Rivastigmine Tartrate (oral) 1.5 MG CAPSULE PO SCH ×2 (08:19→21:51)
[2017-02-19] MEDS ORDERED: Metoprolol XL (24 HR) Succ 25 MG TAB.ER.24H PO SCH ×2 (09:00→10:27)
--- NOTE | 2017-02-19 09:34 | Cardiology Consult Note ---
Date of Encounter: 02/19/17 Time of Encounter: 09:00 Assessment and Plan (1) Atrial fibrillation Current Visit: Yes Status: Acute Pt has known chronic afib and is on coumadin therapy. Likely exacerbated by influenza and n/v. Continue cardizem gtt and titrate to keep HR less than 100 bpm. Increase metoprolol succinate to 50 mg daily. Heparin gtt for ACS protocal until INR therapeutic. INR 1.7. TTE ordered by primary team. Last TTE 06/2016 pt was unable to cooperate and LV function unable to be assessed. Qualifiers: Atrial fibrillation type: paroxysmal Qualified Code(s): I48.0 - Paroxysmal atrial fibrillation (2) NSTEMI (non-ST elevated myocardial infarction) Current Visit: Yes Status: Acute Troponin 0.04, 1.51, 1.51. Type II RI in the setting of influenza, fever,mild CHF, and atrial fibrillaton with RVR. She denies chest pain. She is a DNRCC. Check TTE. Heparin gtt until INR therapeutic. Asa, statin, and bb. (3) CHF (congestive heart failure) Current Visit: Yes Status: Acute TTE 01/06/15: LVEF 45%, mild global hypokinesis, normal RV, RVSP 33 Mild CHF on CXR. BLE edema on exam. BNP 1005. Will give IV lasix. Monitor BMP. Qualifiers: Congestive heart failure type: systolic Congestive heart failure chronicity : unspecified congestive heart failure chronicity Qualified Code(s): I50.20 - Unspecified systolic (congestive) heart failure (4) CAD (coronary artery disease) Current Visit: No Status: Chronic Continue asa, statin, and bb. Qualifiers: Coronary Disease-Associated Artery/Lesion type: [place] artery [place] vs. transplanted heart: [place] heart Associated angina: without angina Qualified Code(s): I25.10 - Atherosclerotic heart disease of [place] coronary artery without angina pectoris (5) Dementia Current Visit: Yes Status: Chronic Supportive care. Pt unable to give any history. Only oriented to her name. Qualifiers: Dementia type: unspecified type Dementia behavioral disturbance: without behavioral disturbance Qualified Code(s): F03.90 - Unspecified dementia without behavioral disturbance Discussion w patient/family: The assessment and plan as outlined above was discussed with the patient and/or family members who expressed understanding and agreement. All questions were answered. Thank you for involving us in the care of your patient. Please call with any questions. History of Present Illness Consult date: 02/19/17 Requesting physician: Gwen Valdivia Consult reason: atrial fibrillation with RVR Chief complaint: Elevated HR History of present illness: Ms. Morgan is a 76 year old female with a history of CAD s/p previous PCI, ICD, atrial fibrillation on coumadin, diabetes, hypothyroidism, and dementia. She presented from a group home facility when she was found to have elevated heart rates in the 130-140 bpm. She was found to be in atrial fibrillation with RVR. As of note she is confused and unable to give any health history. There is no family at bedside. According to her record she was recently diagnosed with influenza A and is taking tamiflu. She had nauseas and vomiting and a fever. She denies chest pain, SOB, or palpitations. She was placed on a cardizem gtt. Previous cardiac testing: TTE 01/06/15: LVEF 45%, mild global hypokinesis, normal RV, RVSP 33 LHC 01/05/15: LVEF 50%, 50% stenosis in the LMCA. There is a 30% stenosis in the Mid LAD. There is a 50% stenosis in the Distal LAD. There is a 100% stenosis in the ostial Circumflex. The lesion has collaterals which feed from left to left. There is a 14 mm long, 80% stenosis in the Proximal RCA. The lesion has a TIMBO flow of 3. An intervention was performed on the Proximal RCA with a final stenosis of 0%. There were no lesion complications. The final TIMBO flow was 3. There is a 30% instent restenosis in the Mid RCA. There is a 30% stenosis in the Distal RCA. TTE 07/04/16: suboptimal study, patient refused to complete the study, cardiac function not adequately assessed. Past Med Surg Social Fam HX - Past Medical History Medical history: atrial fibrillation, cardiomyopathy, COPD, dementia, diabetes, myocardial infarction, renal disease, thyroid disease Psychiatric history: depression - Past Surgical History Surgical History: angioplasty/stent (4 stents (last placed 7 yrs ago)), hysterectomy, thyroidectomy (and parathroidectomy), AICD - Social History Smoking Status: Former smoker (smoked 3ppd for 30 years, quits 33 years ago.) Smokeless Tobacco Status: No Alcohol use: none Drug use: none - Family History Mother Living Status: Hx Family Cardiac Disorders: Yes Medications and Allergies Allopurinol [Zyloprim 100 MG] 100 mg PO DAILY 07/03/16 [History] Cholecalciferol (D-3) [Vitamin D] 2,000 unit PO DAILY 07/03/16 [History] Clopidogrel [Plavix] 75 mg PO DAILY 07/03/16 [History] Ferrous Sulfate 325 mg PO DAILY 07/03/16 [History] Isosorbide MONOnitrate (24 HR) [Imdur] 30 mg PO DAILY 07/03/16 [History] Levothyroxine [Synthroid] 150 mcg PO QAM 07/03/16 [History] Multivitamin [Multi-Day Vitamins] 1 each PO DAILY 07/03/16 [History] Oxygen 2 l NS AD 07/03/16 [History] Quetiapine Fumarate [Seroquel] 50 mg PO QAM 07/03/16 [History] Ranitidine HCl [Zantac] 150 mg PO BID 07/03/16 [History] Rivastigmine Tartrate [Exelon] 3 mg PO BID 07/03/16 [History] Quetiapine Fumarate [Seroquel] 100 mg PO HS tablet 07/07/16 [Rx] Cranberry Fruit Extract [Cranberry] 425 mg PO DAILY 12/15/16 [History] Metoprolol Succinate 25 mg PO DAILY #10 tab.er.24h 12/18/16 [Rx] Atorvastatin Calcium [Lipitor] 20 mg PO HS 02/18/17 [History] Cefuroxime Axetil [Cefuroxime] 250 mg PO BID 02/18/17 [History] Insulin Glargine,Hum.rec.anlog [Lantus Solostar] 20 unit SQ HS 02/18/17 [History ] Insulin NPH, HUMAN [HumuLIN N] 5 unit SQ TIDWM 02/18/17 [History] Oseltamivir [Tamiflu] 75 mg PO DAILY 02/18/17 [History] Warfarin [Coumadin] 4 mg PO 1800 02/18/17 [History] Allergies lorazepam Allergy (Verified 07/03/16 12:08) Anaphylaxis propoxyphene Allergy (Verified 07/03/16 12:08) Anaphylaxis Sulfa (Sulfonamide Antibiotics) Allergy (Verified 07/03/16 12:08) Anaphylaxis All Systems Review: A 10-system review of systems was performed and is negative for pertinent findings except as documented above in the HPI. Physical Examination Vital Signs, Last 4 Hours Temp Pulse Resp BP Pulse Ox 02/19/17 08:11 100.2 F H 109 18 110/53 95 General: Conversant, No Apparent Distress, Other (Confused) HEENT: Atraumatic, Normocephaly, Mucus Membranes Moist Neck: No JVD, Normal carotid pulses Cardiac: Other (irregularly irregular) Lungs: Other (Respirations easy, rhonci scattered throughout. ) Neuro: Alert and responsive, No focal deficits noted Abdomen: Soft, Non-Tender Skin: No rashes noted on visualized skin Musculoskeletal: No Chest Wall Tenderness Extremities: No Clubbing, No Cyanosis, Normal Pulses, Other (multiple bruises BLE. trace BLE edema. ) Results 02/19/17 00:32 02/19/17 00:32 Lab Results 02/19/17 02/19/17 02/19/17 00:32 00:32 00:32 WBC 7.5 Hgb 10.5 L Hct 33.5 L Plt Count 201 INR Sodium 136 Potassium 4.5 Chloride 102 Carbon Dioxide 25 BUN 14 Creatinine 1.19 H Glucose 240 H Calcium 8.7 Magnesium 1.7 Troponin I 1.51 H* B-Natriuretic Peptide 02/19/17 02/19/17 02/19/17 00:32 00:32 06:27 WBC Hgb Hct Plt Count INR 1.7 Sodium Potassium Chloride Carbon Dioxide BUN Creatinine Glucose Calcium Magnesium Troponin I 1.51 H* B-Natriuretic Peptide 1005 H - Imaging and Cardiology Echo: report reviewed Cardiac cath: report reviewed - EKG Interpretation EKG results cardiology: personally reviewed (atrial fibrilation with RVR) Consult Discharge Plan - Plan Referrals: Yrn Avery MD [Primary Care Provider] - (Patient is from [facility])
[2017-02-19] MEDS ORDERED: *HR* Heparin 5,000 UNIT/ML VIAL IVP ONE (10:25)
[2017-02-19] MEDS ORDERED: *HR* Heparin 5,000 UNIT/ML VIAL IVP PRN ×2 (10:25)
[2017-02-19] MEDS ORDERED: Metoprolol XL (24 HR) Succ 25 MG TAB.ER.24H PO ONE (10:30)
[2017-02-19] MEDS ORDERED: Heparin 25,000 UNIT/500 ML D5W 25,000 UNIT/500 ML MLS IVC SCH (10:30)
[2017-02-19] MEDS ORDERED: Furosemide 40 MG/4 ML VIAL IVP SCH (11:00)
[2017-02-19 11:21] LABS: Hematocrit 31.2 % (35.3-44.9); Hemoglobin 9.7 g/dL (11.5-15.4); Immature Platelets 6.1 % (1.1-6.1); Mean Corpuscular HGB Conc 31.1 g/dL (31.6-35.5); Mean Corpuscular Hemoglobin 29.5 pg (28.0-33.3); Mean Corpuscular Volume 94.8 fL (83.0-100.0); Mean Platelet Volume 11.2 fL (9.4-12.4); Red Blood Count 3.29 M/mcL (3.82-4.97); Red Cell Distribution Width 14.2 % (11.5-14.5)
--- NOTE | 2017-02-19 13:52 | Internal Med Progress Note ---
<Dedra Moyer - Last Filed: 02/19/17 14:24> Date of Encounter: 02/19/17 Time of Encounter: 10:25 - Assessment and plan (1) Atrial fibrillation with RVR Current Visit: Yes Status: Acute Assessment and plan: Patient has known chronic afib on coumadin therapy presented in afiv w/RVR, most likely secondary to influenza, n/v. Patient has been on cardizem gtt Cardiology has been consulted and their recommendations are appreciated. Plan: -Continue cardizem gtt, titrate to keep HR less than 100 BPM -Continue increased dose of toprol 50mg daily -Per Cardiology we will discontinue heparin gtt and have pharmacy to dose coumadin to keep within therapeutic range -ECHO results pending (2) Elevated troponin Current Visit: Yes Status: Acute Assessment and plan: Most likely demand ischemia in the setting of afib RVR, influenza, fever, and mild CHF. Patient DNR-CC, states he prefers medical management. Plan: -Cardiology consulted, feels is most likely demand ischemia -Plan as above (3) CHF (congestive heart failure) Current Visit: Yes Status: Acute Assessment and plan: TTE 01/06/15: LVEF 45%, mild global hypokinesis, normal RV, RVSP 33 Mild CHF on CXR, BLE edema on exam. BNP 1005. Plan: - Agree with IV lasix 40mg daily. -AM BMP -ECHO pending Qualifiers: Congestive heart failure type: systolic Congestive heart failure chronicity : unspecified congestive heart failure chronicity Qualified Code(s): I50.20 - Unspecified systolic (congestive) heart failure (4) Influenza A Current Visit: Yes Status: Acute Assessment and plan: Patient was started on tamiflu by SNF. states swab was negative. Plan: -Continue isolation precautions for influenza -Supportive care -Complete course of tamiflu (5) Fever Current Visit: Yes Status: Acute Assessment and plan: Plan: -Acetaminophen 625mg Q6hr Qualifiers: Fever type: unspecified Qualified Code(s): R50.9 - Fever, unspecified (6) Dementia Current Visit: Yes Status: Chronic Qualifiers: Dementia type: unspecified type Dementia behavioral disturbance: without behavioral disturbance Qualified Code(s): F03.90 - Unspecified dementia without behavioral disturbance (7) Diabetes mellitus Current Visit: Yes Status: Chronic Assessment and plan: Plan: -Continue levemir 20unit SQ HS -Continue humalog SQ q6hr medium dose SSC -Accuchecks ACHS -Diabetic diet Qualifiers: Diabetes mellitus type: type 2 Diabetes mellitus complication status: with unspecified complications Diabetes mellitus usp insulin use: with terminal supervisor use Qualified Code(s): E11.8 - Type 2 diabetes mellitus with unspecified complications; Z79.4 - bed bug exterminator (current) use of insulin (8) CKD (chronic kidney disease), stage III Current Visit: No Status: Acute (9) CAD (coronary artery disease) Current Visit: No Status: Chronic Qualifiers: Coronary Disease-Associated Artery/Lesion type: [place] artery [place] vs. transplanted heart: [place] heart Associated angina: without angina Qualified Code(s): I25.10 - Atherosclerotic heart disease of [place] coronary artery without angina pectoris (10) Hypothyroidism Current Visit: No Status: Chronic Assessment and plan: Continue home dose of synthroid Qualifiers: Hypothyroidism type: unspecified Qualified Code(s): E03.9 - Hypothyroidism , unspecified (11) DVT prophylaxis Current Visit: No Status: Acute Assessment and plan: Patient on coumadin - Subjective Interval history: Patient seen and examined. Patient is alert and oriented to person only. She does not know where she is, date or situation. She continuously complains of feeling tired and worn out. She denies any other complaints. - Constitutional Vitals: Temp Pulse Resp BP Pulse Ox 99.3 F 85 18 139/75 96 02/19/17 12:00 02/19/17 12:00 02/19/17 12:00 02/19/17 12:00 02/19/17 12:00 General appearance: Present: cooperative, A&O X 1, mild distress, morbidly obese - Head Head exam: Present: atraumatic, normocephalic - Eye Eye exam: Present: PERRL, conjuntiva pink, sclera anicteric Pupils: Present: PERRL - Respiratory Respiratory exam: Present: rhonchi, wheezes, tachypnea. Absent: accessory muscle use, rales - Cardiovascular Cardiovascular exam: Present: irregular rhythm, JVD, tachycardia - GI/Abdominal GI/Abdominal exam: Present: normal bowel sounds, soft, no peritoneal signs. Absent: distended, tenderness - Extremities Exam Extremities exam: Present: normal capillary refill, pedal edema, warm, radial pulses palpable and symetrical. Absent: calf tenderness, cyanotic, tenderness - Neurological Exam Neurological exam: Present: alert - Expanded Neurological Exam Coma Scale Eye Opening: To Voice Coma Scale Verbal Response: Confused (orient to self, not to place, time or situation) - Psychiatric Psychiatric exam: Present: normal affect, normal mood - Skin Skin exam: Present: dry, excoriation (left anterior diaz) Additional comments: Chronic venous stasis changes. Internal Medicine: Result - Labs CBC & Chem 7: 02/19/17 10:48 02/19/17 00:32 Labs: Short CBC 02/19/17 02/19/17 Range/Units 00:32 10:48 WBC 7.5 6.7 (4.3-11.1) K/mcL Hgb 10.5 L 9.7 L (11.5-15.4) g/dL Hct 33.5 L 31.2 L (35.3-44.9) % Plt Count 201 194 (140-400) K/mcL Neutrophils # 5.5 (1.6-8.9) K/mcL BMP 02/19/17 00:32 Sodium 136 Potassium 4.5 Chloride 102 Carbon Dioxide 25 BUN 14 Creatinine 1.19 H Glucose 240 H Calcium 8.7 Cardiac Enzymes 02/19/17 02/19/17 Range/Units 00:32 06:27 Troponin I 1.51 H* 1.51 H* (0-0.03) ng/mL - ABG Interpretation ABG results: PT/INR, D-dimer PT 18.3 Seconds (9.4-12.1) H 02/19/17 00:32 - Diagnostic Studies Chest x-ray Status: image reviewed by me Additional comments: Chest X-Ray 02/18/17 17:02 IMPRESSION: Cardiomegaly with mild to moderate CHF. D/ / Joe Watson MD / Joe Watson MD Interpreting Provider: Joe Watson MD Consult Discharge Plan - Plan Referrals: Yrn Avery MD [Primary Care Provider] - (Patient is from [facility]) <Gerson Garcia - Last Filed: 02/19/17 19:14> - Assessment and plan (1) Atrial fibrillation Current Visit: Yes Status: Acute Assessment and plan: On Card drip. Appreciate card input. Qualifiers: Atrial fibrillation type: paroxysmal Qualified Code(s): I48.0 - Paroxysmal atrial fibrillation (2) Influenza A Current Visit: Yes Status: Acute (3) Hypertension Current Visit: Yes Status: Chronic Qualifiers: Hypertension type: essential hypertension Qualified Code(s): I10 - Essential (primary) hypertension (4) Hypothyroidism Current Visit: No Status: Chronic Qualifiers: Hypothyroidism type: unspecified Qualified Code(s): E03.9 - Hypothyroidism , unspecified (5) COPD (chronic obstructive pulmonary disease) Current Visit: No Status: Chronic Qualifiers: COPD type: unspecified COPD Qualified Code(s): J44.9 - Chronic obstructive pulmonary disease, unspecified (6) CAD (coronary artery disease) Current Visit: No Status: Chronic Qualifiers: Coronary Disease-Associated Artery/Lesion type: [place] artery [place] vs. transplanted heart: [place] heart Associated angina: without angina Qualified Code(s): I25.10 - Atherosclerotic heart disease of [place] coronary artery without angina pectoris (7) Dementia Current Visit: Yes Status: Chronic Qualifiers: Dementia type: unspecified type Dementia behavioral disturbance: without behavioral disturbance Qualified Code(s): F03.90 - Unspecified dementia without behavioral disturbance (8) Diabetes mellitus Current Visit: Yes Status: Chronic Qualifiers: Diabetes mellitus type: type 2 Diabetes mellitus complication status: with unspecified complications Diabetes mellitus usp insulin use: with terminal supervisor use Qualified Code(s): E11.8 - Type 2 diabetes mellitus with unspecified complications; Z79.4 - penitentiary (current) use of insulin - Constitutional Vitals: Temp Pulse Resp BP Pulse Ox 99.5 F 78 18 107/77 99 02/19/17 17:01 02/19/17 17:01 02/19/17 17:01 02/19/17 17:01 02/19/17 17:01 Internal Medicine: Result - Labs CBC & Chem 7: 02/19/17 10:48 02/19/17 00:32 Labs: Short CBC 02/19/17 02/19/17 Range/Units 00:32 10:48 WBC 7.5 6.7 (4.3-11.1) K/mcL Hgb 10.5 L 9.7 L (11.5-15.4) g/dL Hct 33.5 L 31.2 L (35.3-44.9) % Plt Count 201 194 (140-400) K/mcL Neutrophils # 5.5 (1.6-8.9) K/mcL BMP 02/19/17 00:32 Sodium 136 Potassium 4.5 Chloride 102 Carbon Dioxide 25 BUN 14 Creatinine 1.19 H Glucose 240 H Calcium 8.7 Cardiac Enzymes 02/19/17 02/19/17 Range/Units 00:32 06:27 Troponin I 1.51 H* 1.51 H* (0-0.03) ng/mL - ABG Interpretation ABG results: PT/INR, D-dimer PT 18.3 Seconds (9.4-12.1) H 02/19/17 00:32 - Attending Attestation I examined this patient and my medical decision-making was reviewed with the Resident Physician on 02/19/17. I agree with the documented findings, disposition and treatment plan as described except to the extent set forth below. Ms. Morgan is currently admitted for atrial fibrillation with RVR and presumed acute respiratory illness due to influenza. She remains moderate to high risk due to potential for worsening respiratory and cardiac issues. Ms. Morgan is resting comfortably. She denies pain at this time though is quite confused. No CP or SOB. No GI symptoms. Exam Alert. Comfortable Heart irreg - not tachy Coarse rhonchi heard I/P 1. A fib with RVR 2. Acute viral resp infection 3. Dementia Further diagnoses and plan as above.
[2017-02-19] MEDS: *HR* Warfarin 4 MG TABLET PO SCH (17:03)
[2017-02-19] MEDS ORDERED: Warfarin perPT PO PRN (18:00)
--- NOTE | 2017-02-19 18:01 | Electrocardiograph Report ---
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
--- NOTE | 2017-02-19 18:15 | Electrocardiograph Report ---
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
[2017-02-19] MEDS: Acetaminophen 325 MG TABLET PO SCH (21:50)
[2017-02-19] MEDS: Insulin DETEMIR 100 UNIT/ML X5UNITS SQ SCH (21:51)
[2017-02-19 21:55] LABS: Bilirubin,Urine Negative (Negative); Blood,Urine Small (Negative); Clarity,Urine Cloudy (Clear); Color,Urine Yellow (Yellow); Glucose,Urine (UA) Normal (Normal); Ketones,Urine Negative (Negative); Leukocyte Esterase,Urine Moderate (Negative); Nitrite,Urine Negative (Negative); Protein,Urine 30 mg/dL (Neg-Trace); Specific Gravity,Urine 1.012 (1.010-1.025); Urobilinogen,Urine Normal (Normal)
[2017-02-19 21:57] LABS: Bacteria,Urine None Seen per hpf (None-Few); Hyaline Casts,Urine None Seen per lpf (None-Few); Squamous Epithelial Cell,Urine Many per lpf (None-Few); WBC,Urine 50-100 per hpf (0-3)
[2017-02-19 22:07] LABS: Yeast,Urine Few per hpf (None Seen)
[2017-02-20] MEDS: Acetaminophen 325 MG TABLET PO SCH ×5 (00:29→23:46)
[2017-02-20 06:37] LABS: Basophils % 0.7 %; Eosinophils # 0.1 K/mcL (0.0-0.6); Eosinophils % 1.6 %; Hematocrit 29.1 % (35.3-44.9); Hemoglobin 9.3 g/dL (11.5-15.4); Immature Granulocytes % 0.7 % (0-4); Lymphocytes # 1.4 K/mcL (0.6-4.6); Lymphocytes % 32.3 %; Mean Corpuscular Hemoglobin 30.4 pg (28.0-33.3); Mean Corpuscular Volume 95.1 fL (83.0-100.0); Mean Platelet Volume 11.5 fL (9.4-12.4); Monocytes # 0.5 K/mcL (0.0-1.3); Monocytes % 11.7 %; Neutrophils # 2.4 K/mcL (1.6-8.9); Platelet Count 168 K/mcL (140-400); Red Blood Count 3.06 M/mcL (3.82-4.97); Red Cell Distribution Width 14.2 % (11.5-14.5)
[2017-02-20 06:38] LABS: INR 1.6; Prothrombin Time 17.4 Seconds (9.4-12.1)
[2017-02-20 06:52] LABS: Calcium 8.7 mg/dL (8.6-10.8); Potassium 4.3 mEq/L (3.5-4.5)
[2017-02-20] MEDS: Insulin LISPRO 300 UNITS/3 ML VIAL SQ SCH ×4 (08:27→21:34)
[2017-02-20] MEDS: Famotidine 20 MG TABLET PO SCH (08:28)
[2017-02-20] MEDS: Cefuroxime PO 250 MG TABLET PO SCH ×2 (08:29→21:34)
[2017-02-20] MEDS: Rivastigmine Tartrate (oral) 1.5 MG CAPSULE PO SCH ×2 (08:29→21:34)
[2017-02-20] MEDS: Cholecalciferol (D-3) 1,000 UNIT TABLET PO SCH (08:31)
[2017-02-20] MEDS: Metoprolol XL (24 HR) Succ 50 MG TAB.ER.24H PO SCH (08:31)
[2017-02-20] MEDS: Oseltamivir Phosphate 30 MG CAPSULE PO SCH ×2 (08:31→21:30)
--- NOTE | 2017-02-20 08:59 | Internal Med Progress Note ---
<Dedra Moyer - Last Filed: 02/20/17 13:32> Date of Encounter: 02/20/17 Time of Encounter: 08:55 - Assessment and plan (1) Atrial fibrillation with RVR Current Visit: Yes Status: Acute Assessment and plan: Patient has known chronic afib on coumadin therapy presented in afiv w/RVR, most likely secondary to influenza, n/v. Patient has been on cardizem gtt that was stopped this morning. 02/19/17 TTE: EF 50%. Indeterminate diastolic function. Mild TR Cardiology has been consulted and their recommendations are appreciated. Patient has increased rhonchi and wheezing on exam today, along with diaphoresis. Plan: -Discontinue cardizem gtt -Start oral cardizem 180mg daily -Continue increased dose of toprol 50mg daily -Per Cardiology we will have pharmacy to dose coumadin to keep within therapeutic range -F/U outpatient in 1 week with [facility] -With worsening breath sounds and diaphoresis will check CXR. Suspect there may be some pulmonary edema secondary to afib w/RVR. Will consider lasix once CXR resulted. (2) Elevated troponin Current Visit: Yes Status: Acute Assessment and plan: Most likely demand ischemia in the setting of afib RVR, influenza, fever, and mild CHF. Patient DNR-CC, states he prefers medical management. Plan: -Cardiology consulted, feels is most likely demand ischemia, appreciate their recommendations. -Plan as above (3) CHF (congestive heart failure) Current Visit: Yes Status: Acute Assessment and plan: TTE 01/06/15: LVEF 45%, mild global hypokinesis, normal RV, RVSP 33 02/19/17 TTE: EF 50%. Indeterminate diastolic function. Mild TR Mild CHF on CXR, BLE edema on exam. BNP 1005. Plan: - Agree with IV lasix 40mg daily. -AM BMP Qualifiers: Congestive heart failure type: systolic Congestive heart failure chronicity : unspecified congestive heart failure chronicity Qualified Code(s): I50.20 - Unspecified systolic (congestive) heart failure (4) Influenza A Current Visit: Yes Status: Acute Assessment and plan: Patient was started on tamiflu by SNF. states swab was negative. Plan: -Continue isolation precautions for influenza -Supportive care -Complete course of tamiflu (5) Fever Current Visit: Yes Status: Acute Assessment and plan: Patient continues to be afebrile with acetaminophen. Plan: -Continue Acetaminophen 625mg Q6hr Qualifiers: Fever type: unspecified Qualified Code(s): R50.9 - Fever, unspecified (6) Dementia Current Visit: Yes Status: Chronic Qualifiers: Dementia type: unspecified type Dementia behavioral disturbance: without behavioral disturbance Qualified Code(s): F03.90 - Unspecified dementia without behavioral disturbance (7) Diabetes mellitus Current Visit: Yes Status: Chronic Assessment and plan: Plan: -Continue levemir 20unit SQ HS -Continue humalog SQ q6hr medium dose SSC -Accuchecks ACHS -Diabetic diet Qualifiers: Diabetes mellitus type: type 2 Diabetes mellitus complication status: with unspecified complications Diabetes mellitus watermelon inspector insulin use: with watermelon inspector use Qualified Code(s): E11.8 - Type 2 diabetes mellitus with unspecified complications; N18.3 - Chronic kidney disease, stage 3 (moderate); Z79.4 - care home (current) use of insulin (8) CKD (chronic kidney disease), stage III Current Visit: No Status: Acute (9) CAD (coronary artery disease) Current Visit: No Status: Chronic Qualifiers: Coronary Disease-Associated Artery/Lesion type: [place] artery [place] vs. transplanted heart: [place] heart Associated angina: without angina Qualified Code(s): I25.10 - Atherosclerotic heart disease of [place] coronary artery without angina pectoris (10) Hypothyroidism Current Visit: No Status: Chronic Assessment and plan: Continue home dose of synthroid Qualifiers: Hypothyroidism type: unspecified Qualified Code(s): E03.9 - Hypothyroidism , unspecified (11) DVT prophylaxis Current Visit: No Status: Acute Assessment and plan: Patient on coumadin - Subjective Interval history: Patient seen and examined. Patient is alert and oriented to person only. She does not know where she is, date or situation. She denies any complaints. - Constitutional Vitals: Temp Pulse Resp BP Pulse Ox 97.8 F 72 18 99/65 90 L 02/20/17 07:56 02/20/17 07:56 02/20/17 07:56 02/20/17 07:56 02/20/17 07:56 General appearance: Present: cooperative, A&O X 1, mild distress, morbidly obese - Head Head exam: Present: atraumatic, normocephalic - Neck Neck exam general surgery: Present: supple, trachea midline. Absent: lymphadenopathy, tenderness - Respiratory Respiratory exam: Present: rhonchi, wheezes. Absent: respiratory distress - Cardiovascular Cardiovascular exam: Present: irregular rhythm, +S1, +S2. Absent: diastolic murmur, gallop, rubs, systolic murmur - GI/Abdominal GI/Abdominal exam: Present: normal bowel sounds, soft, no peritoneal signs. Absent: distended, tenderness - Extremities Exam Extremities exam: Present: pedal edema (trace), warm, radial pulses palpable and symetrical. Absent: calf tenderness, cyanotic - Neurological Exam Neurological exam: Present: alert Additional comments: oriented to person, not oriented to place, time or situation. - Psychiatric Psychiatric exam: Present: normal affect, normal mood - Skin Skin exam: Present: diaphoretic, intact. Absent: rash Internal Medicine: Result - Labs CBC & Chem 7: 02/20/17 06:03 02/20/17 06:03 Labs: Short CBC 02/19/17 02/20/17 Range/Units 10:48 06:03 WBC 6.7 4.4 (4.3-11.1) K/mcL Hgb 9.7 L 9.3 L (11.5-15.4) g/dL Hct 31.2 L 29.1 L (35.3-44.9) % Plt Count 194 168 (140-400) K/mcL Neutrophils # 2.4 (1.6-8.9) K/mcL BMP 02/20/17 06:03 Sodium 133 L Potassium 4.3 Chloride 102 Carbon Dioxide 24 BUN 23 H Creatinine 1.22 H Glucose 108 H Calcium 8.7 Urine 02/19/17 Range/Units 20:30 Urine Color Yellow (Yellow) Urine Clarity Cloudy A (Clear) Urine pH 6.0 (5.0-8.0) pH Units Ur Specific [place] 1.012 (1.010-1.025) Urine Protein 30 H (Neg-Trace) mg/dL Urine Glucose (UA) Normal (Normal) mg/dL - ABG Interpretation ABG results: PT/INR, D-dimer PT 17.4 Seconds (9.4-12.1) H 02/20/17 06:03 Consult Discharge Plan - Plan Referrals: Yrn Avery MD [Primary Care Provider] - (Patient is from [facility]) <Gerson Garcia - Last Filed: 02/20/17 16:01> - Assessment and plan (1) Influenza A Current Visit: Yes Status: Acute (2) Atrial fibrillation Current Visit: Yes Status: Acute Qualifiers: Atrial fibrillation type: paroxysmal Qualified Code(s): I48.0 - Paroxysmal atrial fibrillation (3) Hypertension Current Visit: Yes Status: Chronic Qualifiers: Hypertension type: essential hypertension Qualified Code(s): I10 - Essential (primary) hypertension (4) Hypothyroidism Current Visit: No Status: Chronic Qualifiers: Hypothyroidism type: unspecified Qualified Code(s): E03.9 - Hypothyroidism , unspecified (5) COPD (chronic obstructive pulmonary disease) Current Visit: No Status: Chronic Qualifiers: COPD type: unspecified COPD Qualified Code(s): J44.9 - Chronic obstructive pulmonary disease, unspecified (6) CAD (coronary artery disease) Current Visit: No Status: Chronic Qualifiers: Coronary Disease-Associated Artery/Lesion type: [place] artery [place] vs. transplanted heart: [place] heart Associated angina: without angina Qualified Code(s): I25.10 - Atherosclerotic heart disease of [place] coronary artery without angina pectoris (7) Dementia Current Visit: Yes Status: Chronic Qualifiers: Dementia type: unspecified type Dementia behavioral disturbance: without behavioral disturbance Qualified Code(s): F03.90 - Unspecified dementia without behavioral disturbance (8) Diabetes mellitus Current Visit: Yes Status: Chronic Qualifiers: Diabetes mellitus type: type 2 Diabetes mellitus complication status: with kidney complications Diabetes mellitus complication detail: with chronic kidney disease Diabetes mellitus fdc insulin use: with watermelon inspector use Chronic kidney disease stage: stage 3 (moderate) Qualified Code(s): E11.22 - Type 2 diabetes mellitus with diabetic chronic kidney disease; N18.3 - Chronic kidney disease, stage 3 (moderate); Z79.4 - watermelon inspector (current) use of insulin (9) CHF (congestive heart failure) Current Visit: Yes Status: Acute Qualifiers: Congestive heart failure type: systolic Congestive heart failure chronicity : acute on chronic Qualified Code(s): I50.23 - Acute on chronic systolic ( congestive) heart failure (10) CKD (chronic kidney disease), stage III Current Visit: No Status: Acute - Constitutional Vitals: Temp Pulse Resp BP Pulse Ox 98.1 F 78 18 97/41 100 03/24/17 15:08 02/20/17 15:08 02/20/17 15:08 02/20/17 15:08 02/20/17 15:08 Internal Medicine: Result - Labs CBC & Chem 7: 02/20/17 06:03 02/20/17 06:03 Labs: Short CBC 02/20/17 Range/Units 06:03 WBC 4.4 (4.3-11.1) K/mcL Hgb 9.3 L (11.5-15.4) g/dL Hct 29.1 L (35.3-44.9) % Plt Count 168 (140-400) K/mcL Neutrophils # 2.4 (1.6-8.9) K/mcL BMP 02/20/17 06:03 Sodium 133 L Potassium 4.3 Chloride 102 Carbon Dioxide 24 BUN 23 H Creatinine 1.22 H Glucose 108 H Calcium 8.7 Urine 02/19/17 Range/Units 20:30 Urine Color Yellow (Yellow) Urine Clarity Cloudy A (Clear) Urine pH 6.0 (5.0-8.0) pH Units Ur Specific [place] 1.012 (1.010-1.025) Urine Protein 30 H (Neg-Trace) mg/dL Urine Glucose (UA) Normal (Normal) mg/dL - ABG Interpretation ABG results: PT/INR, D-dimer PT 17.4 Seconds (9.4-12.1) H 02/20/17 06:03 - Impressions Impressions Chest X-Ray 02/20/17 11:41 IMPRESSION: 1. CHF with likely trace pleural effusions, not significantly changed. 2. New linear right midlung atelectasis. A developing pneumonia is felt to be less likely, but cannot entirely be excluded. D/ / Dusty Myers MD / Dusty Myers MD Interpreting Provider: Dusty Myers MD - Attending Attestation I examined this patient and my medical decision-making was reviewed with the Resident Physician on 02/20/17. I agree with the documented findings, disposition and treatment plan as described except to the extent set forth below. Ms. Morgan is currently admitted for acute a fib with RVR and demand ischemia. She is moderate to high risk due to potential for worsening respiratory status. Ms. Morgan is having more secretions but has been on lasix and creatinine increased. No fever or chills. No complaints of dyspnea. Exam Alert. Comfortable Heart irreg - not tachy now Lungs with rhonchi CXR with CHF I/P 1. Acute on chronic systolic CHF 2. A fib Further diagnoses and plan as above.
--- NOTE | 2017-02-20 09:34 | Cardiology Progress Note ---
Date of Encounter: 02/20/17 Time of Encounter: 09:32 Assessment and Plan (1) Atrial fibrillation Current Visit: Yes Status: Acute Atrial fibrillation with RVR during stay. Pt has known chronic afib and is on coumadin therapy. Likely exacerbated by influenza and n/v. Now rate controlled on cardizem gtt. Change to oral cardizem. Toprol XL was increased. INR goal 2.0-3.0. Continue to adjust as needed. Last TTE 06/2016 pt was unable to cooperate and LV function unable to be assessed. TTE completed and results pending. If no significant change cardiology will sign off. Out pt f/u in 1 week will be scheduled by [facility]. Qualifiers: Atrial fibrillation type: paroxysmal Qualified Code(s): I48.0 - Paroxysmal atrial fibrillation (2) NSTEMI (non-ST elevated myocardial infarction) Current Visit: Yes Status: Acute Troponin 0.04, 1.51, 1.51. Type II AK in the setting of influenza, fever,mild CHF, and atrial fibrillaton with RVR. Demand ischemia. She denies chest pain. She is a DNRCC. Pt and prefer conservative management. Check TTE. Continue asa, statin, and bb. (3) CHF (congestive heart failure) Current Visit: Yes Status: Acute TTE 01/06/15: LVEF 45%, mild global hypokinesis, normal RV, RVSP 33 Mild CHF on CXR. BLE edema on initial exam. BNP 1005. BLE edema improved and mild bup in creatinine. D/c lasix. Monitor BMP. CHF education. Low sodium diet and daily weights. Qualifiers: Congestive heart failure type: systolic Congestive heart failure chronicity : unspecified congestive heart failure chronicity Qualified Code(s): I50.20 - Unspecified systolic (congestive) heart failure (4) CAD (coronary artery disease) Current Visit: No Status: Chronic H/o previous PCI. Continue asa, statin, and bb. Qualifiers: Coronary Disease-Associated Artery/Lesion type: [place] artery [place] vs. transplanted heart: [place] heart Associated angina: without angina Qualified Code(s): I25.10 - Atherosclerotic heart disease of [place] coronary artery without angina pectoris Discussion w patient/family: The assessment and plan as outlined above was discussed with the patient and/or family members who expressed understanding and agreement. All questions were answered. Thank you for involving us in the care of your patient. Please call with any questions. Subjective Principal diagnosis: afib Interval history: No complaints. No events overnight. Continues to be confused. Objective Vital Signs, Last 4 Hours Temp Pulse Resp BP Pulse Ox 02/20/17 07:56 97.8 F 72 18 99/65 90 L General: Conversant, No Apparent Distress, Other (confused) HEENT: Atraumatic, Normocephaly, Mucus Membranes Moist Neck: No JVD, Normal carotid pulses Cardiac: Other (Irregularly irregular) Lungs: Normal Breath Sounds, No Wheeze, Rales, Rhonchi Neuro: Alert and responsive, No focal deficits noted Abdomen: Soft, Non-Tender Skin: No rashes noted on visualized skin Musculoskeletal: No Chest Wall Tenderness Extremities: No Clubbing, No Cyanosis, No Edema, Normal Pulses, Other (Edema resolved) Results 02/20/17 06:03 02/20/17 06:03 Lab Results 02/19/17 02/20/17 02/20/17 10:48 06:03 06:03 WBC 6.7 4.4 Hgb 9.7 L 9.3 L Hct 31.2 L 29.1 L Plt Count 194 168 INR 1.6 Sodium Potassium Chloride Carbon Dioxide BUN Creatinine Glucose Calcium 02/20/17 06:03 WBC Hgb Hct Plt Count INR Sodium 133 L Potassium 4.3 Chloride 102 Carbon Dioxide 24 BUN 23 H Creatinine 1.22 H Glucose 108 H Calcium 8.7 - Imaging and Cardiology Echo: pending - EKG Interpretation EKG results cardiology: other (24 hour telemetry review shows avg HR at 88 bpm, atrial fibrillation.) Consult Discharge Plan - Plan Referrals: Yrn Avery MD [Primary Care Provider] - (Patient is from [facility])
--- NOTE | 2017-02-20 10:01 | ECHO - Doppler Report ---
Echocardiogram Name: Maia Norris [facility] Date of Study: 02/19/2017 Date: 1940 Ht: 66.0 in Medical Record#: [id number] Age: 76 Wt: 220.0 lb Gender: Female BSA: 2.08 Order #: [id number] Location: [facility] Room #: 2A37 Reading Physician: Dung Leahy DO, FACGely, ANDREA ABEL Manager Media: Rosmery Carreon RDCS Ordering Physician: Kamilah Valdivia MD Primary Physician: Yrn Avery MD Indications: AFIB RVR, Elevated Troponin Impressions: Technically sub-optimal due to poor echocardiographic windows. LVEF 50%. Normal LV chamber size, wall thickness and low normal function. Atypical septal motion consistent with paced rhythm. Indeterminate diastolic function. Grossly normal right ventricular structure and function. Mild to moderately dilated left atrium. Mild tricuspid regurgitation. Mild pulmonary hypertension. Left Ventricular Wall Motion: Rest Echo Findings All wall segments showed normal motion. Findings: Study Quality * Technically sub-optimal due to poor echocardiographic windows. ECG Findings * Appeared to be atrial fibrillation with demand pacing. Left Ventricle * LVEF 50%. * Normal LV chamber size, wall thickness and function. * Atypical septal motion consistent with paced rhythm. * Indeterminate diastolic function. Right Ventricle * Grossly normal right ventricular structure and function. Left Atrium * Mild to moderately dilated left atrium. Right Atrium * Mildly dilated right atrium. Interatrial Septum * Interatrial septum not well evaluated. Aortic Valve * Trileaflet aortic valve. * Mildly sclerotic aortic valve leaflets. * No aortic stenosis. * No aortic regurgitation. Mitral Valve * Mild posterior mitral annular calcification. * Trace mitral regurgitation. * No mitral stenosis. Tricuspid Valve * Normal tricuspid valve structure. * Mild tricuspid regurgitation. * Mild pulmonary hypertension. Pulmonic Valve * Normal pulmonic valve structure and function. * Trace pulmonic regurgitation. Aorta * Normally sized aortic root. Pericardium * The pericardium appears normal. IVC * The IVC is dilated. Pulmonary Artery * Normal visualized portions of the main pulmonary artery. Device lead * A device lead was visualized in the right atrium and right ventricle. History Diabetes Years 30 Packs 3 Family History of CAD History of CAD/PTCA Myocardial Infarction Pacer/ICD Implant Congential Heart Disease 07/04/2016 a Previous Echo was performed. Measurements: BP: 139/ 75 2D Normal Values RVIDd: 3.16 cm <2.7 cm IVSd: 1.29 cm 0.6 - 1.0 cm LVIDd: 4.97 cm 3.7 - 5.6 cm LVPWd: 1.40 cm 0.6 - 1.1 cm LVIDs: 2.92 cm 1.5 - 3.6 cm AO: 2.40 cm < 4.0 cm LA: 4.70 cm 2.0 - 4.0cm %FS: 41.20 cm >25 % LA volume: 45 Mitral Valve Peak E:1.19 m/sec Peak E' Lat Phillip:7.83 cm/s Peak E' Med Phillip:9.03 cm/s E/E' Lat Ratio:15.2 E/E' Med Ratio:13.2 Tricuspid Valve TV Regurg Peak Grad: 29.00mmHg TV Regurg Peak Phillip: 2.69m/sec Updated by Dung Leahy DO, DEVAN, ANDREA ABEL on 02/20/2017 9:54:52 AM electronically signed on 02/20/2017 9:56:08 AM with status of Final Wall Motion Springer: 1=Normal, 2=Hypokinesis, 3=Akinesis, 4=Dyskinesis, 5=Aneurysmal, 6=Hyperkinetic, X=Not Visualized (Blank)=Missing
[2017-02-20] MEDS: Diltiazem CD (24hr) 180 MG CAPSULE PO SCH (11:12)
[2017-02-20] MEDS ORDERED: Furosemide 20 MG/2 ML VIAL IVP SCH (17:00)
[2017-02-20] MEDS: *HR* Warfarin 4 MG TABLET PO SCH (17:22)
[2017-02-20] MEDS: Insulin DETEMIR 100 UNIT/ML X5UNITS SQ SCH (22:50)
[2017-02-21] MEDS: Acetaminophen 325 MG TABLET PO SCH ×3 (06:05→17:09)
[2017-02-21 07:50] LABS: Basophils % 0.4 %; Eosinophils # 0.1 K/mcL (0.0-0.6); Eosinophils % 3.1 %; Hematocrit 27.8 % (35.3-44.9); Immature Granulocytes % 0.4 % (0-4); Lymphocytes # 1.3 K/mcL (0.6-4.6); Mean Corpuscular HGB Conc 32.4 g/dL (31.6-35.5); Mean Corpuscular Volume 92.7 fL (83.0-100.0); Mean Platelet Volume 11.2 fL (9.4-12.4); Monocytes # 0.4 K/mcL (0.0-1.3); Monocytes % 8.7 %; Neutrophils # 2.7 K/mcL (1.6-8.9); Platelet Count 149 K/mcL (140-400); Segmented Neutrophils % 59.4 %
[2017-02-21 07:53] LABS: Prothrombin Time 21.9 Seconds (9.4-12.1)
[2017-02-21 08:04] LABS: BUN/Creatinine Ratio 23 (6-26); Blood Urea Nitrogen 23 mg/dL (7-20); Calcium 8.6 mg/dL (8.6-10.8); Carbon Dioxide 26 mEq/L (19-29); Chloride 104 mEq/L (98-109); Glucose 75 mg/dL (70-99); Osmolality,Calculated 284 (280-300); Potassium 4.3 mEq/L (3.5-4.5); Sodium 136 mEq/L (136-145); eGFR For African Americans > 60 (> 60); eGFR For Non-African Americans 55 (> 60)
[2017-02-21] MEDS: Diltiazem CD (24hr) 180 MG CAPSULE PO SCH (08:17)
[2017-02-21] MEDS: Cholecalciferol (D-3) 1,000 UNIT TABLET PO SCH (08:17)
[2017-02-21] MEDS: Insulin LISPRO 300 UNITS/3 ML VIAL SQ SCH ×4 (08:17→22:30)
[2017-02-21] MEDS: Oseltamivir Phosphate 30 MG CAPSULE PO SCH ×2 (08:24→20:07)
[2017-02-21] MEDS: Rivastigmine Tartrate (oral) 1.5 MG CAPSULE PO SCH ×2 (08:24→20:07)
[2017-02-21] MEDS: Famotidine 20 MG TABLET PO SCH (08:25)
[2017-02-21] MEDS: Metoprolol XL (24 HR) Succ 50 MG TAB.ER.24H PO SCH ×2 (08:29→08:30)
--- NOTE | 2017-02-21 10:17 | Internal Med Progress Note ---
<Dedra Moyer - Last Filed: 02/21/17 10:14> Date of Encounter: 02/21/17 Time of Encounter: 09:00 - Assessment and plan (1) Atrial fibrillation with RVR Current Visit: Yes Status: Acute Assessment and plan: Patient has known chronic afib on coumadin therapy presented in afiv w/RVR, most likely secondary to influenza, n/v. Patient has been on cardizem gtt that was stopped this morning. 02/19/17 TTE: EF 50%. Indeterminate diastolic function. Mild TR Cardiology has been consulted and their recommendations are appreciated. Patient lung sounds improved overnight with fluid restriction, HR remains <100. Plan: -Continue oral cardizem 180mg daily -Continue increased dose of toprol 50mg daily -Per Cardiology we will have pharmacy to dose coumadin to keep within therapeutic range -F/U outpatient in 1 week with [facility] -Continue fluid restriction of 1.5L -Anticipate discharge tomorrow as long as symptoms continue to improve. (2) Elevated troponin Current Visit: Yes Status: Acute Assessment and plan: Most likely demand ischemia in the setting of afib RVR, influenza, fever, and mild CHF. Patient DNR-CC, states he prefers medical management. Plan: -Cardiology consulted, feels is most likely demand ischemia, appreciate their recommendations. -Plan as above (3) CHF (congestive heart failure) Current Visit: Yes Status: Acute Assessment and plan: TTE 01/06/15: LVEF 45%, mild global hypokinesis, normal RV, RVSP 33 02/19/17 TTE: EF 50%. Indeterminate diastolic function. Mild TR Mild CHF on CXR, BLE edema on exam. BNP 1005. Patient had increased rhonchi/rales with diaphoresis on exam 02/20. CXR revealed CHF with likely trace pleural effusions, new linear right midlung atelectasis. Patient had lasix discontinued secondary to rising creatinine. Patient placed on fluid restriction of 1.5L overnight. This morning her lung sounds have improved and SCr decreased to 0.99. Plan: -Continue fluid restriction of 1.5L -AM BMP -Anticipate discharge tomorrow Qualifiers: Congestive heart failure type: systolic Congestive heart failure chronicity : acute on chronic Qualified Code(s): I50.23 - Acute on chronic systolic ( congestive) heart failure (4) Influenza A Current Visit: Yes Status: Acute Assessment and plan: Patient was started on tamiflu by SNF. states swab was negative. Plan: -Continue isolation precautions for influenza -Supportive care -Complete course of tamiflu (5) Fever Current Visit: Yes Status: Acute Assessment and plan: Patient continues to be afebrile with acetaminophen. Plan: -Continue Acetaminophen 625mg Q6hr Qualifiers: Fever type: unspecified Qualified Code(s): R50.9 - Fever, unspecified (6) Dementia Current Visit: Yes Status: Chronic Qualifiers: Dementia type: unspecified type Dementia behavioral disturbance: without behavioral disturbance Qualified Code(s): F03.90 - Unspecified dementia without behavioral disturbance (7) Diabetes mellitus Current Visit: Yes Status: Chronic Assessment and plan: Plan: -Continue levemir 20unit SQ HS -Continue humalog SQ q6hr medium dose SSC -Accuchecks ACHS -Diabetic diet Qualifiers: Diabetes mellitus type: type 2 Diabetes mellitus complication status: with kidney complications Diabetes mellitus complication detail: with chronic kidney disease Diabetes mellitus assistant terminal manager insulin use: with assistant terminal manager use Chronic kidney disease stage: stage 3 (moderate) Qualified Code(s): E11.22 - Type 2 diabetes mellitus with diabetic chronic kidney disease; N18.3 - Chronic kidney disease, stage 3 (moderate); 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 transplanted heart: [place] heart Associated angina: without angina Qualified Code(s): I25.10 - Atherosclerotic heart disease of [place] coronary artery without angina pectoris (10) Hypothyroidism Current Visit: No Status: Chronic Assessment and plan: Continue home dose of synthroid Qualifiers: Hypothyroidism type: unspecified Qualified Code(s): E03.9 - Hypothyroidism , unspecified (11) DVT prophylaxis Current Visit: No Status: Acute Assessment and plan: Patient on coumadin - Subjective Interval history: Patient seen and examined. Patient is alert and oriented to person only. She does not know where she is, date or situation. She denies any complaints. - Constitutional Vitals: Temp Pulse Resp BP Pulse Ox 97.8 F 80 16 110/69 93 L 03/25/17 07:53 02/21/17 09:22 02/21/17 09:22 02/21/17 09:22 02/21/17 09:22 General appearance: Present: cooperative, A&O X 1, mild distress, morbidly obese - Head Head exam: Present: atraumatic, normocephalic - Eye Eye exam: Present: PERRL, conjuntiva pink, sclera anicteric Pupils: Present: PERRL - Neck Neck exam general surgery: Present: supple, trachea midline. Absent: lymphadenopathy - Respiratory Respiratory exam: Present: rales, rhonchi. Absent: accessory muscle use, respiratory distress, tachypnea - Cardiovascular Cardiovascular exam: Present: irregular rhythm, +S1, +S2. Absent: diastolic murmur, gallop, rubs, systolic murmur, tachycardia - GI/Abdominal GI/Abdominal exam: Present: normal bowel sounds, soft, no peritoneal signs. Absent: distended, tenderness - Extremities Exam Extremities exam: Present: warm, radial pulses palpable and symetrical. Absent : calf tenderness, cyanotic, pedal edema - Neurological Exam Neurological exam: Present: alert. Absent: facial droop, speech deficit Additional comments: oriented to person only. Not oriented to place, time or situation - Psychiatric Psychiatric exam: Present: normal affect, normal mood - Skin Skin exam: Present: dry Additional comments: dressing in place on left ankle Internal Medicine: Result - Labs CBC & Chem 7: 02/21/17 07:23 02/21/17 07:23 Labs: Short CBC 02/21/17 Range/Units 07:23 WBC 4.5 (4.3-11.1) K/mcL Hgb 9.0 L (11.5-15.4) g/dL Hct 27.8 L (35.3-44.9) % Plt Count 149 (140-400) K/mcL Neutrophils # 2.7 (1.6-8.9) K/mcL BMP 02/21/17 07:23 Sodium 136 Potassium 4.3 Chloride 104 Carbon Dioxide 26 BUN 23 H Creatinine 0.99 Glucose 75 Calcium 8.6 - ABG Interpretation ABG results: PT/INR, D-dimer PT 21.9 Seconds (9.4-12.1) H 02/21/17 07:23 - Impressions Impressions Chest X-Ray 02/20/17 11:41 IMPRESSION: 1. CHF with likely trace pleural effusions, not significantly changed. 2. New linear right midlung atelectasis. A developing pneumonia is felt to be less likely, but cannot entirely be excluded. D/ / Dusty Myers MD / Dusty Myers MD Interpreting Provider: Dusty Myers MD - Diagnostic Studies Chest x-ray Status: image reviewed by me Additional comments: Chest X-Ray 02/20/17 11:41 IMPRESSION: 1. CHF with likely trace pleural effusions, not significantly changed. 2. New linear right midlung atelectasis. A developing pneumonia is felt to be less likely, but cannot entirely be excluded. D/ / Dusty Myers MD / Dusty Myers MD Interpreting Provider: Dusty Myers MD Consult Discharge Plan - Plan Referrals: Yrn Avery MD [Primary Care Provider] - (Patient is from [facility]) <Gerson Garcia - Last Filed: 02/21/17 15:10> - Assessment and plan (1) Influenza A Current Visit: Yes Status: Acute (2) Atrial fibrillation Current Visit: Yes Status: Acute Qualifiers: Atrial fibrillation type: paroxysmal Qualified Code(s): I48.0 - Paroxysmal atrial fibrillation (3) Hypertension Current Visit: Yes Status: Chronic Qualifiers: Hypertension type: essential hypertension Qualified Code(s): I10 - Essential (primary) hypertension (4) Hypothyroidism Current Visit: No Status: Chronic Qualifiers: Hypothyroidism type: unspecified Qualified Code(s): E03.9 - Hypothyroidism , unspecified (5) COPD (chronic obstructive pulmonary disease) Current Visit: No Status: Chronic Qualifiers: COPD type: unspecified COPD Qualified Code(s): J44.9 - Chronic obstructive pulmonary disease, unspecified (6) CAD (coronary artery disease) Current Visit: No Status: Chronic Qualifiers: Coronary Disease-Associated Artery/Lesion type: [place] artery [place] vs. transplanted heart: [place] heart Associated angina: without angina Qualified Code(s): I25.10 - Atherosclerotic heart disease of [place] coronary artery without angina pectoris (7) Dementia Current Visit: Yes Status: Chronic Qualifiers: Dementia type: unspecified type Dementia behavioral disturbance: without behavioral disturbance Qualified Code(s): F03.90 - Unspecified dementia without behavioral disturbance (8) Diabetes mellitus Current Visit: Yes Status: Chronic Qualifiers: Diabetes mellitus type: type 2 Diabetes mellitus complication status: with kidney complications Diabetes mellitus complication detail: with chronic kidney disease Diabetes mellitus assistant terminal manager insulin use: with chcf use Chronic kidney disease stage: stage 3 (moderate) Qualified Code(s): E11.22 - Type 2 diabetes mellitus with diabetic chronic kidney disease; N18.3 - Chronic kidney disease, stage 3 (moderate); 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 (9) CHF (congestive heart failure) Current Visit: Yes Status: Acute Qualifiers: Congestive heart failure type: systolic Congestive heart failure chronicity : acute on chronic Qualified Code(s): I50.23 - Acute on chronic systolic ( congestive) heart failure (10) CKD (chronic kidney disease), stage III Current Visit: No Status: Acute - Constitutional Vitals: Temp Pulse Resp BP Pulse Ox 97.8 F 80 16 110/69 93 L 02/21/17 07:53 02/21/17 09:22 02/21/17 09:22 02/21/17 09:22 02/21/17 09:22 Internal Medicine: Result - Labs CBC & Chem 7: 02/21/17 07:23 02/21/17 07:23 Labs: Short CBC 02/21/17 Range/Units 07:23 WBC 4.5 (4.3-11.1) K/mcL Hgb 9.0 L (11.5-15.4) g/dL Hct 27.8 L (35.3-44.9) % Plt Count 149 (140-400) K/mcL Neutrophils # 2.7 (1.6-8.9) K/mcL BMP 02/21/17 07:23 Sodium 136 Potassium 4.3 Chloride 104 Carbon Dioxide 26 BUN 23 H Creatinine 0.99 Glucose 75 Calcium 8.6 - ABG Interpretation ABG results: PT/INR, D-dimer PT 21.9 Seconds (9.4-12.1) H 02/21/17 07:23 - Attending Attestation I examined this patient and my medical decision-making was reviewed with the Resident Physician on 02/21/17. I agree with the documented findings, disposition and treatment plan as described except to the extent set forth below. Ms. Morgan is currently admitted for a fib with RVR and influenza. She remains moderate risk due to the potential for worsening respiratory status. Ms. Morgan is still congested in her chest. She is wanting to leave. She has taken her IV out. No GI symptoms or other issues. Exam Alert. Comfortable Heart irreg but not tachy Lungs with rhonchi I/P 1. A fib - now rate controlled 2. Influenza Further diagnoses and plan as above. Anticipate d/c tomorrow.
[2017-02-21] MEDS: *HR* Warfarin 4 MG TABLET PO SCH (17:09)
[2017-02-21] MEDS: Insulin DETEMIR 100 UNIT/ML X5UNITS SQ SCH (22:30)
[2017-02-22] MEDS: Acetaminophen 325 MG TABLET PO SCH ×2 (00:22→08:47)
[2017-02-22 05:04] VITALS: BP 99/54
[2017-02-22 07:49] LABS: Basophils % 0.4 %; Eosinophils # 0.1 K/mcL (0.0-0.6); Eosinophils % 2.8 %; Hematocrit 29.4 % (35.3-44.9); Hemoglobin 9.5 g/dL (11.5-15.4); Immature Granulocytes % 0.2 % (0-4); Lymphocytes # 1.8 K/mcL (0.6-4.6); Lymphocytes % 37.9 %; Mean Corpuscular HGB Conc 32.3 g/dL (31.6-35.5); Mean Corpuscular Hemoglobin 30.3 pg (28.0-33.3); Mean Corpuscular Volume 93.6 fL (83.0-100.0); Mean Platelet Volume 11.3 fL (9.4-12.4); Monocytes # 0.4 K/mcL (0.0-1.3); Monocytes % 9.1 %; Neutrophils # 2.3 K/mcL (1.6-8.9); Platelet Count 192 K/mcL (140-400); Red Blood Count 3.14 M/mcL (3.82-4.97); Segmented Neutrophils % 49.6 %
[2017-02-22 08:01] LABS: BUN/Creatinine Ratio 20 (6-26); Blood Urea Nitrogen 21 mg/dL (7-20); Calcium 8.7 mg/dL (8.6-10.8); Carbon Dioxide 24 mEq/L (19-29); Chloride 106 mEq/L (98-109); Glucose 97 mg/dL (70-99); Osmolality,Calculated 293 (280-300); Sodium 140 mEq/L (136-145); eGFR For African Americans > 60 (> 60); eGFR For Non-African Americans 52 (> 60)
[2017-02-22 08:03] LABS: INR 1.9; Prothrombin Time 20.7 Seconds (9.4-12.1)
--- NOTE | 2017-02-22 08:14 | Discharge Summary ---
<Dedra oMyer - Last Filed: 02/22/17 18:22> Date of Encounter: 02/22/17 Time of Encounter: 08:04 - Discharge Diagnosis (1) Atrial fibrillation with RVR Priority: Primary Status: Resolved (2) Elevated troponin Priority: Primary Status: Acute (3) CHF (congestive heart failure) Priority: Secondary Status: Chronic Qualifiers: Congestive heart failure type: systolic Congestive heart failure chronicity : acute on chronic Qualified Code(s): I50.23 - Acute on chronic systolic ( congestive) heart failure (4) Influenza A Priority: Secondary Status: Acute (5) Fever Priority: Secondary Status: Acute Qualifiers: Fever type: due to other condition Qualified Code(s): R50.81 - Fever presenting with conditions classified elsewhere (6) Dementia Priority: Secondary Status: Chronic Qualifiers: Dementia type: unspecified type Dementia behavioral disturbance: without behavioral disturbance Qualified Code(s): F03.90 - Unspecified dementia without behavioral disturbance (7) Diabetes mellitus Priority: Secondary Status: Chronic Qualifiers: Diabetes mellitus type: type 2 Diabetes mellitus complication status: with kidney complications Diabetes mellitus complication detail: with chronic kidney disease Diabetes mellitus longterm insulin use: with ferry terminal supervisor use Chronic kidney disease stage: stage 3 (moderate) Qualified Code(s): E11.22 - Type 2 diabetes mellitus with diabetic chronic kidney disease; N18.3 - Chronic kidney disease, stage 3 (moderate); Z79.4 - ferry terminal supervisor (current) use of insulin (8) CKD (chronic kidney disease), stage III Priority: Secondary Status: Chronic (9) CAD (coronary artery disease) Priority: Secondary Status: Chronic Qualifiers: Coronary Disease-Associated Artery/Lesion type: [place] artery [place] vs. transplanted heart: [place] heart Associated angina: without angina Qualified Code(s): I25.10 - Atherosclerotic heart disease of [place] coronary artery without angina pectoris (10) Hypothyroidism Priority: Secondary Status: Chronic Qualifiers: Hypothyroidism type: unspecified Qualified Code(s): E03.9 - Hypothyroidism , unspecified (11) DVT prophylaxis Priority: Primary Status: Acute - Discharge Medications Prescriptions: Diltiazem CD (24hr) [Cardizem CD] 180 mg PO DAILY #30 cap.er.24h Home Medications: Allopurinol [Zyloprim 100 MG] 100 mg PO DAILY 07/03/16 [History] Cholecalciferol (D-3) [Vitamin D] 2,000 unit PO DAILY 07/03/16 [History] Clopidogrel [Plavix] 75 mg PO DAILY 07/03/16 [History] Ferrous Sulfate 325 mg PO DAILY 07/03/16 [History] Isosorbide MONOnitrate (24 HR) [Imdur] 30 mg PO DAILY 07/03/16 [History] Levothyroxine [Synthroid] 150 mcg PO QAM 07/03/16 [History] Multivitamin [Multi-Day Vitamins] 1 each PO DAILY 07/03/16 [History] Oxygen 2 l NS AD 07/03/16 [History] Quetiapine Fumarate [Seroquel] 50 mg PO QAM 07/03/16 [History] Ranitidine HCl [Zantac] 150 mg PO BID 07/03/16 [History] Rivastigmine Tartrate [Exelon] 3 mg PO BID 07/03/16 [History] Quetiapine Fumarate [Seroquel] 100 mg PO HS tablet 07/07/16 [Rx] Cranberry Fruit Extract [Cranberry] 425 mg PO DAILY 12/15/16 [History] Metoprolol Succinate 25 mg PO DAILY #10 tab.er.24h 12/18/16 [Rx] Atorvastatin Calcium [Lipitor] 20 mg PO HS 02/18/17 [History] Insulin Glargine,Hum.rec.anlog [Lantus Solostar] 20 unit SQ HS 02/18/17 [History ] Insulin NPH, HUMAN [HumuLIN N] 5 unit SQ TIDWM 02/18/17 [History] Warfarin [Coumadin] 4 mg PO 1800 02/18/17 [History] Diltiazem CD (24hr) [Cardizem CD] 180 mg PO DAILY #30 cap.er.24h 02/22/17 [Rx] Allergies/Adverse Reactions: Allergies lorazepam Allergy (Verified 07/03/16 12:08) Anaphylaxis propoxyphene Allergy (Verified 07/03/16 12:08) Anaphylaxis Sulfa (Sulfonamide Antibiotics) Allergy (Verified 07/03/16 12:08) Anaphylaxis Date of admission: 02/18/17 23:46 Primary care physician: Yrn Avery MD Consults: 02/19/17 06:47 Consult to Cardiology [CONS] Routine Comment: Consulting Provider: Cardiology [facility] Reason for Consult: A fib / RVR; elevated troponin Call Completed: No 02/19/17 13:40 Consult to [employer] [CONS] Routine Reason for SW Consult: rtn signature 02/20/17 17:35 Consult to Physical Therapy [CONS] Routine Comment: Evaluate, develop and implement POC OT [Consult to Occupational Therapy] [CONS] Routine Comment: Evaluate, develop and implement POC Discharging clinician: Gerson Garcia Anticipated date of discharge: 02/22/17 - Patient Status Disposition: Transfer SNF Condition: Fair Functional capacity at discharge: wheelchair bound (Patient refused to get up with PT to evaluate ambulatory capacity) Overall status at discharge: patient is progressing back to baseline - Discharge Instructions Follow Up With: Yrn Avery MD [Primary Care Provider] - (Patient is from [facility]) Additional Instructions: Follow up with your PCP within 3-5 days Follow up in one week with [facility]. You have been started on a new medication: Cardizem 180mg PO Daily - Diet and Activity Activity: as per physical therapy Diet: diabetic diet Hospital course: Ms. Morgan is a 76 year old female with a PMH of COPD, dementia, diabetes, CAD s /p 4 stents and AICD placement, CKD, hypothyroidism, and atrial fibrillation. [facility] for irregular heart rate rate of 130 to 150. Patient has dementia and is not able to provide accurate information. She was started on Tamiflu for influenza the evening of 02/17. In the emergency department, the patient was found to be in atrial fibrillation with rapid ventricular response with heart rate of 150 beats per minute. She was also febrile with temperature of 101.2. She was started on diltiazem infusion and admitted to the hospitalist service for further management. She remained on the unit while her infusion was titrated for rate control. She was evaluated by Cardiology amd found to have an NSTEMI with elevated troponin of 1.51, demand ischemia secondary to influenza, fever, mild chf and afib with rvr. TTE shows EF at 50%. Indeterminate diastolic function. Mild TR. The patient 's preferred the patient have medical management at this time. The patient was titrated off cardizem once rate was controlled and started on oral cardizem at 180mg daily. The patient had increased rhonchi and was diaphoretic following rate contorl. CXR showed CHF with trace pleural effusions, new linear right midlung atelectasis. There was also an increase in SCr. The patient was fluid restricted with improvement of SCr and lung sounds. Patient finished her course of tamiflu and was discharged back to [facility] in stable condition. Cardiology has scheduled a 1 week outpatient follow up. - Time Spent with Patient Total time spent providing and/or coordinating discharge services: - Constitutional Vitals: Temp Pulse Resp BP Pulse Ox 97.5 F L 83 18 99/54 97 02/22/17 05:02 02/22/17 05:02 02/22/17 05:02 02/22/17 05:02 02/22/17 05:02 General appearance: Present: cooperative, A&O X 1, mild distress, morbidly obese - Head Head exam: Present: atraumatic, normocephalic - Eye Eye exam: Present: PERRL, conjuntiva pink, sclera anicteric Pupils: Present: PERRL - Neck Neck exam general surgery: Present: supple, trachea midline. Absent: lymphadenopathy - Respiratory Respiratory exam: Present: rales, rhonchi. Absent: accessory muscle use, respiratory distress - Cardiovascular Cardiovascular exam: Present: irregular rhythm - GI/Abdominal GI/Abdominal exam: Present: normal bowel sounds, soft, no peritoneal signs. Absent: distended, tenderness - Extremities Exam Extremities exam: Present: pedal edema, warm, radial pulses palpable and symetrical. Absent: calf tenderness, cyanotic Additional comments: dressing in place on left LE Chronic venous stasis changes - Neurological Exam Neurological exam: Present: alert Additional comments: Patient is alert and oriented to person, not oriented to time, place or situation. - Psychiatric Psychiatric exam: Present: normal affect, normal mood Additional comments: Patient talking to people not present in the room. - Skin Skin exam: Present: dry, intact. Absent: diaphoretic, erythema Additional comments: chronic venous stasis changes b/l LE <Gersno Garcia - Last Filed: 02/23/17 19:27> - Discharge Diagnosis (1) Influenza A Status: Acute (2) Atrial fibrillation Status: Acute Qualifiers: Atrial fibrillation type: paroxysmal Qualified Code(s): I48.0 - Paroxysmal atrial fibrillation (3) Hypertension Status: Chronic Qualifiers: Hypertension type: essential hypertension Qualified Code(s): I10 - Essential (primary) hypertension (4) Hypothyroidism Status: Chronic Qualifiers: Hypothyroidism type: unspecified Qualified Code(s): E03.9 - Hypothyroidism , unspecified (5) COPD (chronic obstructive pulmonary disease) Status: Chronic Qualifiers: COPD type: unspecified COPD Qualified Code(s): J44.9 - Chronic obstructive pulmonary disease, unspecified (6) CAD (coronary artery disease) Status: Chronic Qualifiers: Coronary Disease-Associated Artery/Lesion type: [place] artery [place] vs. transplanted heart: [place] heart Associated angina: without angina Qualified Code(s): I25.10 - Atherosclerotic heart disease of [place] coronary artery without angina pectoris (7) Dementia Status: Chronic Qualifiers: Dementia type: unspecified type Dementia behavioral disturbance: without behavioral disturbance Qualified Code(s): F03.90 - Unspecified dementia without behavioral disturbance (8) Diabetes mellitus Status: Chronic Qualifiers: Diabetes mellitus type: type 2 Diabetes mellitus complication status: with kidney complications Diabetes mellitus complication detail: with chronic kidney disease Diabetes mellitus longterm insulin use: with ferry terminal supervisor use Chronic kidney disease stage: stage 3 (moderate) Qualified Code(s): E11.22 - Type 2 diabetes mellitus with diabetic chronic kidney disease; N18.3 - Chronic kidney disease, stage 3 (moderate); Z79.4 - ferry terminal supervisor (current) use of insulin (9) CHF (congestive heart failure) Status: Chronic Qualifiers: Congestive heart failure type: systolic Congestive heart failure chronicity : acute on chronic Qualified Code(s): I50.23 - Acute on chronic systolic ( congestive) heart failure (10) CKD (chronic kidney disease), stage III Status: Chronic Date of admission: 02/18/17 23:46 Primary care physician: Yrn Avery MD Consults: 02/19/17 06:47 Consult to Cardiology [CONS] Routine Comment: Consulting Provider: [facility] [place] Reason for Consult: A fib / RVR; elevated troponin Call Completed: No 02/19/17 13:40 Consult to [employer] [CONS] Routine Reason for SW Consult: rtn signature 02/20/17 17:35 Consult to Physical Therapy [CONS] Routine Comment: Evaluate, develop and implement POC OT [Consult to Occupational Therapy] [CONS] Routine Comment: Evaluate, develop and implement POC Hospital course: Ms. Morgan is a 76 year old female - Time Spent with Patient Total time spent providing and/or coordinating discharge services: 26min - Constitutional Vitals: Temp Pulse Resp BP Pulse Ox 97.5 F L 83 18 99/54 97 02/22/17 05:02 02/22/17 05:02 02/22/17 05:02 02/22/17 05:02 02/22/17 05:02 - Attending Attestation I examined this patient and my medical decision-making was reviewed with the Resident Physician on 02/23/17. I agree with the documented findings, disposition and treatment plan as described except to the extent set forth below. Ms. oMrgan appears to be at baseline mentation. She is comfortable and afebrile. Exam alert. Comfortable Heart irreg not tachy Lungs clearer Plan D/C to SNF today.
[2017-02-22] MEDS: Oseltamivir Phosphate 30 MG CAPSULE PO SCH (08:38)
[2017-02-22] MEDS: Diltiazem CD (24hr) 180 MG CAPSULE PO SCH (08:40)
[2017-02-22] MEDS: Rivastigmine Tartrate (oral) 1.5 MG CAPSULE PO SCH (08:40)
[2017-02-22] MEDS: Insulin LISPRO 300 UNITS/3 ML VIAL SQ SCH (08:40)
[2017-02-22] MEDS: Cholecalciferol (D-3) 1,000 UNIT TABLET PO SCH (08:41)
[2017-02-22] MEDS: Famotidine 20 MG TABLET PO SCH ×2 (08:46→08:47)
[2017-02-22] MEDS: Metoprolol XL (24 HR) Succ 50 MG TAB.ER.24H PO SCH (08:50)
--- NOTE | 2017-02-22 08:53 | Physician Discharge Referral ---
ExtendedCare Referral Info Transfer To: [facility] Provider in Charge after Transfer: PCP Institutional Level of Care: Skilled - Diagnosis (1) Atrial fibrillation with RVR Priority: Primary Status: Resolved (2) Elevated troponin Status: Acute (3) CHF (congestive heart failure) Status: Chronic (4) Influenza A Status: Acute (5) Fever Status: Acute (6) Dementia Status: Chronic (7) Diabetes mellitus Status: Chronic (8) CKD (chronic kidney disease), stage III Status: Chronic (9) CAD (coronary artery disease) Status: Chronic (10) Hypothyroidism Status: Chronic (11) DVT prophylaxis Status: Acute - Transfer Medications Prescriptions: Diltiazem CD (24hr) [Cardizem CD] 180 mg PO DAILY #30 cap.er.24h Home Medications: Allopurinol [Zyloprim 100 MG] 100 mg PO DAILY 07/03/16 [History] Cholecalciferol (D-3) [Vitamin D] 2,000 unit PO DAILY 07/03/16 [History] Clopidogrel [Plavix] 75 mg PO DAILY 07/03/16 [History] Ferrous Sulfate 325 mg PO DAILY 07/03/16 [History] Isosorbide MONOnitrate (24 HR) [Imdur] 30 mg PO DAILY 07/03/16 [History] Levothyroxine [Synthroid] 150 mcg PO QAM 07/03/16 [History] Multivitamin [Multi-Day Vitamins] 1 each PO DAILY 07/03/16 [History] Oxygen 2 l NS AD 07/03/16 [History] Quetiapine Fumarate [Seroquel] 50 mg PO QAM 07/03/16 [History] Ranitidine HCl [Zantac] 150 mg PO BID 07/03/16 [History] Rivastigmine Tartrate [Exelon] 3 mg PO BID 07/03/16 [History] Quetiapine Fumarate [Seroquel] 100 mg PO HS tablet 07/07/16 [Rx] Cranberry Fruit Extract [Cranberry] 425 mg PO DAILY 12/15/16 [History] Metoprolol Succinate 25 mg PO DAILY #10 tab.er.24h 12/18/16 [Rx] Atorvastatin Calcium [Lipitor] 20 mg PO HS 02/18/17 [History] Insulin Glargine,Hum.rec.anlog [Lantus Solostar] 20 unit SQ HS 02/18/17 [History ] Insulin NPH, HUMAN [HumuLIN N] 5 unit SQ TIDWM 02/18/17 [History] Warfarin [Coumadin] 4 mg PO 1800 02/18/17 [History] Diltiazem CD (24hr) [Cardizem CD] 180 mg PO DAILY #30 cap.er.24h 02/22/17 [Rx] Allergies/Adverse Reactions: Allergies lorazepam Allergy (Verified 07/03/16 12:08) Anaphylaxis propoxyphene Allergy (Verified 07/03/16 12:08) Anaphylaxis Sulfa (Sulfonamide Antibiotics) Allergy (Verified 07/03/16 12:08) Anaphylaxis - Respiratory Orders Smoking Cessation: Smoking cessation has been advised. For more information, call the [place] Tobacco Quit Line at 4-863-MTPGNOW. CERTIFICATION: I certify that the transfer of the above named patient to an Extended Care Facility is necessary for the continuing treatment of the diagnosis listed. The above information is true and accurate reflection of patient's current condition. Confidential - Redisclosure prohibited without a patient's written consent.
== END 2017-02-22 10:19 | DRG 280 ==
LOC: 2ANU 16:59 → EMEROO 16:59 → 2ANU 20:24
PROVIDERS: ADMIT Internal Medicine; ATTEND Internal Medicine

== ENCOUNTER 2017-08-21 11:29 | Inpatient (IN) ==
--- NOTE | 2017-08-21 11:52 | Emergency Department Note ---
Disposition Clinical Impression: Septic shock, Elevated troponin, Atrial fibrillation with rapid ventricular response UTI (urinary tract infection) Qualifiers: Urinary tract infection type: acute cystitis Hematuria presence: with hematuria Qualified Code(s): N30.01 - Acute cystitis with hematuria Disposition: Admitted As Inpatient Condition: Serious General Adult HPI - General Chief complaint: ED General Medical Stated complaint: Tachycardia Time Seen by Provider: 08/21/17 11:36 Source: patient Limitations: no limitations Nursing Notes Reviewed: Yes Vital Signs Reviewed: Yes - History of Present Illness Pain Scale: 5 - Related Data Home Medications Medication Instructions Recorded Confirmed Allopurinol [Zyloprim 100 MG] 100 mg PO DAILY 07/03/16 08/21/17 Cholecalciferol (D-3) [Vitamin D] 2,000 unit PO DAILY 07/03/16 08/21/17 Clopidogrel [Plavix] 75 mg PO DAILY 07/03/16 08/21/17 Ferrous Sulfate 325 mg PO DAILY 07/03/16 08/21/17 Isosorbide MONOnitrate (24 HR) 30 mg PO DAILY 07/03/16 08/21/17 [Imdur] Levothyroxine [Synthroid] 150 mcg PO QAM 07/03/16 08/21/17 Multivitamin [Multi-Day Vitamins] 1 each PO DAILY 07/03/16 08/21/17 Oxygen 2 l NS AD 07/03/16 08/21/17 Quetiapine Fumarate [Seroquel] 50 mg PO BID 07/03/16 08/21/17 Rivastigmine Tartrate [Exelon] 3 mg PO BID 07/03/16 08/21/17 Cranberry Fruit Extract [Cranberry] 425 mg PO DAILY 12/15/16 08/21/17 Atorvastatin Calcium [Lipitor] 20 mg PO HS 02/18/17 08/21/17 Insulin Glargine,Hum.rec.anlog 22 unit SQ 02/18/17 08/21/17 [Lantus Solostar] Acetaminophen [Tylenol] 650 mg PO Q4H PRN 08/21/17 08/21/17 Benadryl 25mg/Haldol 1mg 1 ml TP Q2H PRN 08/21/17 08/21/17 Citalopram [CeleXA] 20 mg PO DAILY 08/21/17 08/21/17 Docusate [Colace] 100 mg PO BID 08/21/17 08/21/17 Insulin ASPART [NovoLOG] 5 unit SQ TIDWM 08/21/17 08/21/17 Ipratropium/Albuterol Neb [Duoneb] 3 ml IH QID PRN 08/21/17 08/21/17 Polyethylene Glycol 3350 [MiraLAX] 17 gm PO DAILY 08/21/17 08/21/17 Polyethylene Glycol 3350 [MiraLAX] 17 gm PO DAILY PRN 08/21/17 08/21/17 Quetiapine Fumarate [SEROquel] 300 mg PO HS 08/21/17 08/21/17 Warfarin [Coumadin] 3 mg PO 1800 08/21/17 08/21/17 Previous Rx's Medication Instructions Recorded Metoprolol Succinate 25 mg PO DAILY #10 tab.er.24h 12/18/16 Diltiazem CD (24hr) [Cardizem CD] 180 mg PO DAILY #30 cap.er.24h 02/22/17 Allergies Allergy/AdvReac Type Severity Reaction Status Date / Time lorazepam Allergy Anaphylaxis Verified 07/03/16 12:08 propoxyphene Allergy Anaphylaxis Verified 07/03/16 12:08 Sulfa (Sulfonamide Allergy Anaphylaxis Verified 07/03/16 12:08 Antibiotics) Past Medical History - Past Medical History Medical history: Reports: cirrhosis, COPD, DVT, dementia, diabetes, peripheral artery disease, renal disease, other Surgical history: Reports: angioplasty/stent, hysterectomy, thyroidectomy, AICD Psychiatric history: Reports: depression [employer] 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: non-contributory - Social History Smoking Status: Former smoker Smokeless Tobacco Status: No Alcohol use: Reports: rarely Drug use: Reports: none Physical Exam - General Limitations: no limitations General appearance: alert, in no apparent distress Course Vital Signs Temperature 99.2 F 08/21/17 11:31 Pulse Rate 141 08/21/17 11:31 Respiratory Rate 21 08/21/17 11:31 Blood Pressure 125/86 08/21/17 11:31 O2 Sat by Pulse Oximetry 98 08/21/17 11:31 Temperature 99.2 F 08/21/17 11:31 Pulse Rate 121 08/21/17 16:36 Respiratory Rate 18 08/21/17 16:36 Blood Pressure 93/80 08/21/17 16:36 O2 Sat by Pulse Oximetry 97 08/21/17 16:36 Oxygen Delivery Oxygen Delivery Nasal Cannula Medical Decision Making - MDM Narrative Medical decision making narrative: I examined this patient and my medical decision-making was reviewed with the Resident Physician. I agree with the documented findings, disposition and treatment plan as described except to the extent set forth below. Patient arrives per EMS. From nursing facility. Has had vomiting increased lethargy, and weakness. She is a listed as a DNR CC care only. She cannot give us any history. Her who is her power of prosecuting attorney called and he is home bound. He states that she should be a DNR CC arrest he said we can use any medicines we need but she is not having any "heroic maneuvers, no resuscitation efforts. He states that she has been sleeping the last 2 days. Did have some vomiting no diarrhea to his knowledge. She does have a history of atrial fibrillation with rapid ventricular response. She says she does have a pacemaker in. Has had 2 cardioversions in the past. He told me that her health recently has been declining. I spoke with group social worker we will change her over to a DNR CC arrest on her form per the 's instructions. And then work her up for her current condition and treatment. He asked me to update him by phone his number is . Chest X-Ray 08/21/17 11:59 IMPRESSION: Interval development of mild pulmonary edema. Superimposed pneumonia not excluded. D/ / Mary Powell MD / aMry Powell MD Interpreting Provider: Mary Powell MD 1300 hrs.: She does look like she has pulmonary edema and her chest x-ray, she also has a UTI, also has an elevated BNP, also has an elevated troponin. Cannot tell she has a chest pain or not she is on Plavix so we will not use aspirin at this time. Repeat an EKG which her heart rate slows down assuming seen ischemic changes and will admit her to the hospital. Impression is altered mental status, UTI, CHF, elevated troponin most likely representing nonacute myocardial infarction, A. fib with rapid ventricular response necessitating Cardizem. Patient's critical care time x-ray separate billable procedures is 1 hour. 1320 hrs.: We have treated her UTI with ceftriaxone and gentamicin per sepsis orders. She did get fluids here but because of her CHF I do not want to fluid overload her some Narcan and give her the large doses of fluid per the sepsis order set. 1600 hrs.: Repeat EKG shows an atrial fibrillation rate is 110, ERS is 112, QTC is 391, has low voltage, has incomplete right bundle-branch block, shows no signs of acute ischemia, compared this with her EKG from earlier today shows a slower rate, her heart rate goes anywhere from 100-110 on the monitor, her blood pressure is improved. Spoke with the ring rolling machine operator. As hospitalist was uncomfortable admitting this ring rolling machine operator does not feel this is appropriate for the ICU as she is a no code which I confirmed with . He feels that this could be managed on 2 N. with hospitalist care using cardiology consult if needed and medications. Confirmed with again that he does not feel that she would want heart catheterizations nor would she want any heroic maneuvers no intubation no CPR. I told him we will abide by those wishes. Patient's critical care time excluding any separately billable procedures is 1 hour. 1650 hrs.: ICU physician came and saw the patient in ER and they will admit to the ICU. - Lab Data Result diagrams: 08/21/17 12:27 08/21/17 12:27 Lab Results 08/21/17 08/21/17 08/21/17 Range/Units 12:27 12:27 12:27 WBC 12.3 H (4.3-11.1) K/mcL RBC 4.14 (3.82-4.97) M/mcL Hgb 11.6 (11.5-15.4) g/dL Hct 38.1 (35.3-44.9) % MCV 92.0 (83.0-100.0) fL MCH 28.0 (28.0-33.3) pg MCHC 30.4 L (31.6-35.5) g/dL RDW 14.0 (11.5-14.5) % Plt Count 239 (140-400) K/mcL MPV 10.4 (9.4-12.4) fL Immature Gran % 0.4 (0-4) % Seg Neutrophils % 84.6 % Lymphocytes % 7.6 % Monocytes % 7.2 % Eosinophils % 0.0 % Basophils % 0.2 % Neutrophils # 10.4 H (1.6-8.9) K/mcL Lymphocytes # 0.9 (0.6-4.6) K/mcL Monocytes # 0.9 (0.0-1.3) K/mcL Eosinophils # 0.0 (0.0-0.6) K/mcL Basophils # 0.0 (0.0-0.2) K/mcL PT 21.3 H (9.4-12.1) Seconds INR 2.0 Sodium 140 (136-145) mEq/L Potassium 4.9 H (3.5-4.5) mEq/L Chloride 103 (98-109) mEq/L Carbon Dioxide 24 (19-29) mEq/L BUN 23 H (7-20) mg/dL Creatinine 1.67 H (0.57-1.11) mg/dL Est GFR ( Amer) 36 L (> 60) Est GFR (Non-Af Amer) 30 L (> 60) BUN/Creatinine Ratio 14 (6-26) Glucose 221 H (70-99) mg/dL Calculated Osmolality 300 (280-300) Lactic Acid (0.5-2.2) mmol/L Calcium 8.8 (8.6-10.8) mg/dL Total Bilirubin 0.4 (0.2-1.2) mg/dL AST 45 H (5-34) Units/L ALT 13 (0-55) Units/L Alkaline Phosphatase 162 H (38-126) Units/L Troponin I (0-0.03) ng/mL B-Natriuretic Peptide (0-100) pg/mL Serum Total Protein 7.2 (6.0-8.3) g/dL Albumin 2.6 L (3.5-5.0) g/dL Globulin 4.6 H (2.4-3.5) g/dL Albumin/Globulin Ratio 0.6 L (1.1-2.2) Lipase 23 (8-78) Units/L Urine Color (Yellow) Urine Clarity (Clear) Urine pH (5.0-8.0) pH Units Ur Specific Cedar (1.010-1.025) Urine Protein (Neg-Trace) mg/dL Urine Glucose (UA) (Normal) mg/dL Urine Ketones (Negative) mg/dL Urine Blood (Negative) Urine Nitrite (Negative) Urine Bilirubin (Negative) Urine Urobilinogen (Normal) mg/dL Ur Leukocyte Esterase (Negative) Urine Microscopic RBC (0-3) per hpf Urine Microscopic WBC (0-3) per hpf Ur Squamous Epith Cells (None-Few) per lpf Urine Bacteria (None-Few) per hpf Ur Culture Indicated? (NO) 08/21/17 08/21/17 08/21/17 Range/Units 12:27 12:27 12:27 WBC (4.3-11.1) K/mcL RBC (3.82-4.97) M/mcL Hgb (11.5-15.4) g/dL Hct (35.3-44.9) % MCV (83.0-100.0) fL MCH (28.0-33.3) pg MCHC (31.6-35.5) g/dL RDW (11.5-14.5) % Plt Count (140-400) K/mcL MPV (9.4-12.4) fL Immature Gran % (0-4) % Seg Neutrophils % % Lymphocytes % % Monocytes % % Eosinophils % % Basophils % % Neutrophils # (1.6-8.9) K/mcL Lymphocytes # (0.6-4.6) K/mcL Monocytes # (0.0-1.3) K/mcL Eosinophils # (0.0-0.6) K/mcL Basophils # (0.0-0.2) K/mcL PT (9.4-12.1) Seconds INR Sodium (136-145) mEq/L Potassium (3.5-4.5) mEq/L Chloride (98-109) mEq/L Carbon Dioxide (19-29) mEq/L BUN (7-20) mg/dL Creatinine (0.57-1.11) mg/dL Est GFR ( Amer) (> 60) Est GFR (Non-Af Amer) (> 60) BUN/Creatinine Ratio (6-26) Glucose (70-99) mg/dL Calculated Osmolality (280-300) Lactic Acid 3.9 H (0.5-2.2) mmol/L Calcium (8.6-10.8) mg/dL Total Bilirubin (0.2-1.2) mg/dL AST (5-34) Units/L ALT (0-55) Units/L Alkaline Phosphatase (38-126) Units/L Troponin I 8.12 H* (0-0.03) ng/mL B-Natriuretic Peptide 1943 H (0-100) pg/mL Serum Total Protein (6.0-8.3) g/dL Albumin (3.5-5.0) g/dL Globulin (2.4-3.5) g/dL Albumin/Globulin Ratio (1.1-2.2) Lipase (8-78) Units/L Urine Color (Yellow) Urine Clarity (Clear) Urine pH (5.0-8.0) pH Units Ur Specific Cedar (1.010-1.025) Urine Protein (Neg-Trace) mg/dL Urine Glucose (UA) (Normal) mg/dL Urine Ketones (Negative) mg/dL Urine Blood (Negative) Urine Nitrite (Negative) Urine Bilirubin (Negative) Urine Urobilinogen (Normal) mg/dL Ur Leukocyte Esterase (Negative) Urine Microscopic RBC (0-3) per hpf Urine Microscopic WBC (0-3) per hpf Ur Squamous Epith Cells (None-Few) per lpf Urine Bacteria (None-Few) per hpf Ur Culture Indicated? (NO) 08/21/17 08/21/17 Range/Units 12:36 14:34 WBC (4.3-11.1) K/mcL RBC (3.82-4.97) M/mcL Hgb (11.5-15.4) g/dL Hct (35.3-44.9) % MCV (83.0-100.0) fL MCH (28.0-33.3) pg MCHC (31.6-35.5) g/dL RDW (11.5-14.5) % Plt Count (140-400) K/mcL MPV (9.4-12.4) fL Immature Gran % (0-4) % Seg Neutrophils % % Lymphocytes % % Monocytes % % Eosinophils % % Basophils % % Neutrophils # (1.6-8.9) K/mcL Lymphocytes # (0.6-4.6) K/mcL Monocytes # (0.0-1.3) K/mcL Eosinophils # (0.0-0.6) K/mcL Basophils # (0.0-0.2) K/mcL PT (9.4-12.1) Seconds INR Sodium (136-145) mEq/L Potassium (3.5-4.5) mEq/L Chloride (98-109) mEq/L Carbon Dioxide (19-29) mEq/L BUN (7-20) mg/dL Creatinine (0.57-1.11) mg/dL Est GFR ( Amer) (> 60) Est GFR (Non-Af Amer) (> 60) BUN/Creatinine Ratio (6-26) Glucose (70-99) mg/dL Calculated Osmolality (280-300) Lactic Acid 4.4 H* (0.5-2.2) mmol/L Calcium (8.6-10.8) mg/dL Total Bilirubin (0.2-1.2) mg/dL AST (5-34) Units/L ALT (0-55) Units/L Alkaline Phosphatase (38-126) Units/L Troponin I (0-0.03) ng/mL B-Natriuretic Peptide (0-100) pg/mL Serum Total Protein (6.0-8.3) g/dL Albumin (3.5-5.0) g/dL Globulin (2.4-3.5) g/dL Albumin/Globulin Ratio (1.1-2.2) Lipase (8-78) Units/L Urine Color Yellow (Yellow) Urine Clarity Turbid A (Clear) Urine pH 5.0 (5.0-8.0) pH Units Ur Specific Cedar 1.016 (1.010-1.025) Urine Protein 100 H (Neg-Trace) mg/dL Urine Glucose (UA) Normal (Normal) mg/dL Urine Ketones Negative (Negative) mg/dL Urine Blood Moderate H (Negative) Urine Nitrite Negative (Negative) Urine Bilirubin Negative (Negative) Urine Urobilinogen Normal (Normal) mg/dL Ur Leukocyte Esterase Large H (Negative) Urine Microscopic RBC 5-15 H (0-3) per hpf Urine Microscopic WBC TNTC H (0-3) per hpf Ur Squamous Epith Cells Many H (None-Few) per lpf Urine Bacteria Many H (None-Few) per hpf Ur Culture Indicated? YES A (NO)
[2017-08-21] MEDS ORDERED: 0.9 % Sodium Chloride 1,000 ML IVC ONE (12:01)
[2017-08-21] MEDS ORDERED: Ondansetron 4 MG/2 ML VIAL IVP ONE (12:06)
[2017-08-21 12:33] LABS: Basophils % 0.2 %; Hematocrit 38.1 % (35.3-44.9); Hemoglobin 11.6 g/dL (11.5-15.4); Immature Granulocytes % 0.4 % (0-4); Lymphocytes # 0.9 K/mcL (0.6-4.6); Lymphocytes % 7.6 %; Mean Corpuscular HGB Conc 30.4 g/dL (31.6-35.5); Mean Platelet Volume 10.4 fL (9.4-12.4); Monocytes # 0.9 K/mcL (0.0-1.3); Monocytes % 7.2 %; Neutrophils # 10.4 K/mcL (1.6-8.9); Platelet Count 239 K/mcL (140-400); Red Blood Count 4.14 M/mcL (3.82-4.97); Segmented Neutrophils % 84.6 %
[2017-08-21 12:39] LABS: Prothrombin Time 21.3 Seconds (9.4-12.1)
[2017-08-21 12:44] LABS: Bilirubin,Urine Negative (Negative); Blood,Urine Moderate (Negative); Clarity,Urine Turbid (Clear); Color,Urine Yellow (Yellow); Glucose,Urine (UA) Normal (Normal); Ketones,Urine Negative (Negative); Leukocyte Esterase,Urine Large (Negative); Nitrite,Urine Negative (Negative); Protein,Urine 100 mg/dL (Neg-Trace); Specific Gravity,Urine 1.016 (1.010-1.025); Urobilinogen,Urine Normal (Normal)
[2017-08-21 12:47] LABS: Albumin 2.6 g/dL (3.5-5.0); Albumin/Globulin Ratio 0.6 (1.1-2.2); Bilirubin,Total 0.4 mg/dL (0.2-1.2); Calcium 8.8 mg/dL (8.6-10.8); Globulin 4.6 g/dL (2.4-3.5); Potassium 4.9 mEq/L (3.5-4.5); Total Protein 7.2 g/dL (6.0-8.3)
[2017-08-21 12:47] LABS: Bacteria,Urine Many per hpf (None-Few); Squamous Epithelial Cell,Urine Many per lpf (None-Few); WBC,Urine TNTC per hpf (0-3)
--- NOTE | 2017-08-21 12:56 | Emergency Department Note ---
Disposition Clinical Impression: Septic shock, Elevated troponin, Atrial fibrillation with rapid ventricular response UTI (urinary tract infection) Qualifiers: Urinary tract infection type: acute cystitis Hematuria presence: with hematuria Qualified Code(s): N30.01 - Acute cystitis with hematuria Disposition: Admitted As Inpatient Condition: Serious Referrals: NONE,PCP [Non-Partnered Physician] - Forms: ED Satisfaction Letter, Work/School Release General Adult HPI - General Chief complaint: ED General Medical Stated complaint: Tachycardia Time Seen by Provider: 08/21/17 11:36 Source: patient Limitations: no limitations Nursing Notes Reviewed: Yes Vital Signs Reviewed: Yes - History of Present Illness HPI Narrative: 76-year-old female with a past medical history of dementia, CHF, A. fib, COPD, diabetes. She resides in a nursing facility due to her dementia. Her called in to the emergency department and stated that she has had generalized fatigue over the last 3 days and in addition she has had chronic abdominal pain. The patient is unable to give a reliable history due to her dementia. Radiation: non-radiation Pain Scale: 5 Improves with: nothing Worsens with: nothing Associated symptoms: Reports: confusion Treatments Prior to Arrival: none - Related Data Home Medications Medication Instructions Recorded Confirmed Allopurinol [Zyloprim 100 MG] 100 mg PO DAILY 07/03/16 08/21/17 Cholecalciferol (D-3) [Vitamin D] 2,000 unit PO DAILY 07/03/16 08/21/17 Clopidogrel [Plavix] 75 mg PO DAILY 07/03/16 08/21/17 Ferrous Sulfate 325 mg PO DAILY 07/03/16 08/21/17 Isosorbide MONOnitrate (24 HR) 30 mg PO DAILY 07/03/16 08/21/17 [Imdur] Levothyroxine [Synthroid] 150 mcg PO QAM 07/03/16 08/21/17 Multivitamin [Multi-Day Vitamins] 1 each PO DAILY 07/03/16 08/21/17 Oxygen 2 l NS AD 07/03/16 08/21/17 Quetiapine Fumarate [Seroquel] 50 mg PO BID 07/03/16 08/21/17 Rivastigmine Tartrate [Exelon] 3 mg PO BID 07/03/16 08/21/17 Cranberry Fruit Extract [Cranberry] 425 mg PO DAILY 12/15/16 08/21/17 Atorvastatin Calcium [Lipitor] 20 mg PO HS 02/18/17 08/21/17 Insulin Glargine,Hum.rec.anlog 22 unit SQ HS 02/18/17 08/21/17 [Lantus Solostar] Acetaminophen [Tylenol] 650 mg PO Q4H PRN 08/21/17 08/21/17 Benadryl 25mg/Haldol 1mg 1 ml TP Q2H PRN 08/21/17 08/21/17 Citalopram [CeleXA] 20 mg PO DAILY 08/21/17 08/21/17 Docusate [Colace] 100 mg PO BID 08/21/17 08/21/17 Insulin ASPART [NovoLOG] 5 unit SQ TIDWM 08/21/17 08/21/17 Ipratropium/Albuterol Neb [Duoneb] 3 ml IH QID PRN 08/21/17 08/21/17 Polyethylene Glycol 3350 [MiraLAX] 17 gm PO DAILY 08/21/17 08/21/17 Polyethylene Glycol 3350 [MiraLAX] 17 gm PO DAILY PRN 08/21/17 08/21/17 Quetiapine Fumarate [SEROquel] 300 mg PO HS 08/21/17 08/21/17 Warfarin [Coumadin] 3 mg PO 1800 08/21/17 08/21/17 Previous Rx's Medication Instructions Recorded Metoprolol Succinate 25 mg PO DAILY #10 tab.er.24h 12/18/16 Diltiazem CD (24hr) [Cardizem CD] 180 mg PO DAILY #30 cap.er.24h 02/22/17 Allergies Allergy/AdvReac Type Severity Reaction Status Date / Time lorazepam Allergy Anaphylaxis Verified 07/03/16 12:08 propoxyphene Allergy Anaphylaxis Verified 07/03/16 12:08 Sulfa (Sulfonamide Allergy Anaphylaxis Verified 07/03/16 12:08 Antibiotics) Limitations: ROS unobtainable due to patients medical condition Past Medical History - Past Medical History Medical history: Reports: cirrhosis, COPD, DVT, dementia, diabetes, peripheral artery disease, renal disease, other Surgical history: Reports: angioplasty/stent, hysterectomy, thyroidectomy, AICD Psychiatric history: Reports: depression [employer] history: Reports: non-contributory - Social History Smoking Status: Former smoker Smokeless Tobacco Status: No Alcohol use: Reports: rarely Drug use: Reports: none Physical Exam - General Limitations: no limitations General appearance: alert, in no apparent distress - Head Head exam: atraumatic - Eye Eye exam: Present: PERRL - ENT ENT exam: normal exam, normal oropharynx - Neck Neck exam: Present: normal inspection - Chest Chest inspection: Present: normal inspection - Respiratory Respiratory exam: Present: normal lung sounds bilaterally - Cardiovascular Cardiovascular exam: Present: tachycardia, irregular rhythm - Abdominal Exam Abdominal exam: Present: soft - Back Exam Back exam: Present: normal inspection - Neurological Exam Neurological exam: Present: alert, other (Demented.) - Psychiatric Psychiatric exam: Present: normal affect, normal mood - Skin Skin exam: Present: warm, dry Course Course Narrative: 76 her old female who is unable to give a accurate history due to chronic dementia. Her vital signs and EKG indicates atrial fibrillation with RVR. There is no ST deviation. This is similar to her presentation previously. Critical troponin of greater than 8. EKG does not show a STEMI pattern. She is already anticoagulated. Blood pressure has decreased some since being on the Cardizem. Current blood pressure is 100 systolic. Troponin is elevated and she did receive aspirin. Urine shows urinary tract infection and lactate is elevated. I do a concern for sepsis. Clinically she is alert and very talkative in the room however she does not make a lot of sense and does have dementia. She is moving all extremities and is not somnolent. She does smile and tries to joke. Ultrasound of the gallbladder does not demonstrate acute cholecystitis. She also has no pain on palpation. I will call and speak with the appeals officer due to her relative hypotension with elevated lactate and signs of sepsis. She has been started on Rocephin and gentamicin. Vital Signs Temperature 99.2 F 08/21/17 11:31 Pulse Rate 141 08/21/17 11:31 Respiratory Rate 21 08/21/17 11:31 Blood Pressure 125/86 08/21/17 11:31 O2 Sat by Pulse Oximetry 98 08/21/17 11:31 Temperature 99.2 F 08/21/17 11:31 Pulse Rate 102 08/21/17 16:11 Respiratory Rate 16 08/21/17 16:11 Blood Pressure 102/92 08/21/17 16:11 O2 Sat by Pulse Oximetry 95 08/21/17 16:11 Oxygen Delivery Oxygen Delivery Nasal Cannula Medical Decision Making - Medical Records Medical records reviewed: Yes I reviewed the patient's medical records. - Lab Data Lab results reviewed: Yes I reviewed the patient's lab results. Result diagrams: 08/21/17 12:27 08/21/17 12:27 Lab Results 08/21/17 08/21/17 08/21/17 Range/Units 12:27 12:27 12:27 WBC 12.3 H (4.3-11.1) K/mcL RBC 4.14 (3.82-4.97) M/mcL Hgb 11.6 (11.5-15.4) g/dL Hct 38.1 (35.3-44.9) % MCV 92.0 (83.0-100.0) fL MCH 28.0 (28.0-33.3) pg MCHC 30.4 L (31.6-35.5) g/dL RDW 14.0 (11.5-14.5) % Plt Count 239 (140-400) K/mcL MPV 10.4 (9.4-12.4) fL Immature Gran % 0.4 (0-4) % Seg Neutrophils % 84.6 % Lymphocytes % 7.6 % Monocytes % 7.2 % Eosinophils % 0.0 % Basophils % 0.2 % Neutrophils # 10.4 H (1.6-8.9) K/mcL Lymphocytes # 0.9 (0.6-4.6) K/mcL Monocytes # 0.9 (0.0-1.3) K/mcL Eosinophils # 0.0 (0.0-0.6) K/mcL Basophils # 0.0 (0.0-0.2) K/mcL PT 21.3 H (9.4-12.1) Seconds INR 2.0 Sodium 140 (136-145) mEq/L Potassium 4.9 H (3.5-4.5) mEq/L Chloride 103 (98-109) mEq/L Carbon Dioxide 24 (19-29) mEq/L BUN 23 H (7-20) mg/dL Creatinine 1.67 H (0.57-1.11) mg/dL Est GFR ( Amer) 36 L (> 60) Est GFR (Non-Af Amer) 30 L (> 60) BUN/Creatinine Ratio 14 (6-26) Glucose 221 H (70-99) mg/dL Calculated Osmolality 300 (280-300) Lactic Acid (0.5-2.2) mmol/L Calcium 8.8 (8.6-10.8) mg/dL Total Bilirubin 0.4 (0.2-1.2) mg/dL AST 45 H (5-34) Units/L ALT 13 (0-55) Units/L Alkaline Phosphatase 162 H (38-126) Units/L Troponin I (0-0.03) ng/mL B-Natriuretic Peptide (0-100) pg/mL Serum Total Protein 7.2 (6.0-8.3) g/dL Albumin 2.6 L (3.5-5.0) g/dL Globulin 4.6 H (2.4-3.5) g/dL Albumin/Globulin Ratio 0.6 L (1.1-2.2) Lipase 23 (8-78) Units/L Urine Color (Yellow) Urine Clarity (Clear) Urine pH (5.0-8.0) pH Units Ur Specific [place] (1.010-1.025) Urine Protein (Neg-Trace) mg/dL Urine Glucose (UA) (Normal) mg/dL Urine Ketones (Negative) mg/dL Urine Blood (Negative) Urine Nitrite (Negative) Urine Bilirubin (Negative) Urine Urobilinogen (Normal) mg/dL Ur Leukocyte Esterase (Negative) Urine Microscopic RBC (0-3) per hpf Urine Microscopic WBC (0-3) per hpf Ur Squamous Epith Cells (None-Few) per lpf Urine Bacteria (None-Few) per hpf Ur Culture Indicated? (NO) 08/21/17 08/21/17 08/21/17 Range/Units 12:27 12:27 12:27 WBC (4.3-11.1) K/mcL RBC (3.82-4.97) M/mcL Hgb (11.5-15.4) g/dL Hct (35.3-44.9) % MCV (83.0-100.0) fL MCH (28.0-33.3) pg MCHC (31.6-35.5) g/dL RDW (11.5-14.5) % Plt Count (140-400) K/mcL MPV (9.4-12.4) fL Immature Gran % (0-4) % Seg Neutrophils % % Lymphocytes % % Monocytes % % Eosinophils % % Basophils % % Neutrophils # (1.6-8.9) K/mcL Lymphocytes # (0.6-4.6) K/mcL Monocytes # (0.0-1.3) K/mcL Eosinophils # (0.0-0.6) K/mcL Basophils # (0.0-0.2) K/mcL PT (9.4-12.1) Seconds INR Sodium (136-145) mEq/L Potassium (3.5-4.5) mEq/L Chloride (98-109) mEq/L Carbon Dioxide (19-29) mEq/L BUN (7-20) mg/dL Creatinine (0.57-1.11) mg/dL Est GFR ( Amer) (> 60) Est GFR (Non-Af Amer) (> 60) BUN/Creatinine Ratio (6-26) Glucose (70-99) mg/dL Calculated Osmolality (280-300) Lactic Acid 3.9 H (0.5-2.2) mmol/L Calcium (8.6-10.8) mg/dL Total Bilirubin (0.2-1.2) mg/dL AST (5-34) Units/L ALT (0-55) Units/L Alkaline Phosphatase (38-126) Units/L Troponin I 8.12 H* (0-0.03) ng/mL B-Natriuretic Peptide 1943 H (0-100) pg/mL Serum Total Protein (6.0-8.3) g/dL Albumin (3.5-5.0) g/dL Globulin (2.4-3.5) g/dL Albumin/Globulin Ratio (1.1-2.2) Lipase (8-78) Units/L Urine Color (Yellow) Urine Clarity (Clear) Urine pH (5.0-8.0) pH Units Ur Specific [place] (1.010-1.025) Urine Protein (Neg-Trace) mg/dL Urine Glucose (UA) (Normal) mg/dL Urine Ketones (Negative) mg/dL Urine Blood (Negative) Urine Nitrite (Negative) Urine Bilirubin (Negative) Urine Urobilinogen (Normal) mg/dL Ur Leukocyte Esterase (Negative) Urine Microscopic RBC (0-3) per hpf Urine Microscopic WBC (0-3) per hpf Ur Squamous Epith Cells (None-Few) per lpf Urine Bacteria (None-Few) per hpf Ur Culture Indicated? (NO) 08/21/17 08/21/17 Range/Units 12:36 14:34 WBC (4.3-11.1) K/mcL RBC (3.82-4.97) M/mcL Hgb (11.5-15.4) g/dL Hct (35.3-44.9) % MCV (83.0-100.0) fL MCH (28.0-33.3) pg MCHC (31.6-35.5) g/dL RDW (11.5-14.5) % Plt Count (140-400) K/mcL MPV (9.4-12.4) fL Immature Gran % (0-4) % Seg Neutrophils % % Lymphocytes % % Monocytes % % Eosinophils % % Basophils % % Neutrophils # (1.6-8.9) K/mcL Lymphocytes # (0.6-4.6) K/mcL Monocytes # (0.0-1.3) K/mcL Eosinophils # (0.0-0.6) K/mcL Basophils # (0.0-0.2) K/mcL PT (9.4-12.1) Seconds INR Sodium (136-145) mEq/L Potassium (3.5-4.5) mEq/L Chloride (98-109) mEq/L Carbon Dioxide (19-29) mEq/L BUN (7-20) mg/dL Creatinine (0.57-1.11) mg/dL Est GFR ( Amer) (> 60) Est GFR (Non-Af Amer) (> 60) BUN/Creatinine Ratio (6-26) Glucose (70-99) mg/dL Calculated Osmolality (280-300) Lactic Acid 4.4 H* (0.5-2.2) mmol/L Calcium (8.6-10.8) mg/dL Total Bilirubin (0.2-1.2) mg/dL AST (5-34) Units/L ALT (0-55) Units/L Alkaline Phosphatase (38-126) Units/L Troponin I (0-0.03) ng/mL B-Natriuretic Peptide (0-100) pg/mL Serum Total Protein (6.0-8.3) g/dL Albumin (3.5-5.0) g/dL Globulin (2.4-3.5) g/dL Albumin/Globulin Ratio (1.1-2.2) Lipase (8-78) Units/L Urine Color Yellow (Yellow) Urine Clarity Turbid A (Clear) Urine pH 5.0 (5.0-8.0) pH Units Ur Specific [place] 1.016 (1.010-1.025) Urine Protein 100 H (Neg-Trace) mg/dL Urine Glucose (UA) Normal (Normal) mg/dL Urine Ketones Negative (Negative) mg/dL Urine Blood Moderate H (Negative) Urine Nitrite Negative (Negative) Urine Bilirubin Negative (Negative) Urine Urobilinogen Normal (Normal) mg/dL Ur Leukocyte Esterase Large H (Negative) Urine Microscopic RBC 5-15 H (0-3) per hpf Urine Microscopic WBC TNTC H (0-3) per hpf Ur Squamous Epith Cells Many H (None-Few) per lpf Urine Bacteria Many H (None-Few) per hpf Ur Culture Indicated? YES A (NO) - Radiology Data Radiology results reviewed: Yes I reviewed the patient's radiology results. - EKG Data EKG #1 EKG attestation: Yes I reviewed and interpreted this EKG. Rate: tachycardia Rhythm: A.Fib [place]/QRS: RBBB Interpretation: other (A fib with RVR (rate of 137))
[2017-08-21] MEDS ORDERED: Aspirin 325 MG TABLET PO ONE (13:23)
[2017-08-21] MEDS ORDERED: Gentamicin 100 MG in 0.9 % Sodium Chloride 100 ML IVPB ONE (13:55)
--- NOTE | 2017-08-21 17:02 | Pulmonology History & Physical ---
<Lucy Dove - Last Filed: 08/21/17 19:20> Date of Encounter: 08/21/17 Time of Encounter: 17:02 Assessment and Plan (1) Severe sepsis Current visit: Yes Status: Acute Patient presented to the emergency department with urinary tract infection causing end organ damage including increasing creatinine and altered mental status. Patient had persistent hypotension requiring the insertion of the right IJ central line. We added dopamine and will carefully follow the blood pressure. We cannot fluid bolus aggressively due to her chronic decompensated diastolic heart failure. Most likely source of infection is the urinary tract. Razo removed pus filled urine. UA showed infection. Currently awaiting cultures. Started the patient on vancomycin and meropenem due to previous history of VRE and ESBL. (2) UTI (urinary tract infection) Current visit: Yes Status: Acute The patient presented to the emergency department with no chief complaint. Upon insertion of the Razo catheter pus filled urine was removed. CT the abdomen and pelvis did not show any signs of abscess or other infectious cause. UA was completed along with culture. Cultures currently pending. We will start the patient on vancomycin and meropenem due to previous urine culture is growing VRE and ESBL. Qualifiers: Urinary tract infection type: acute cystitis Hematuria presence: with hematuria Qualified Code(s): N30.01 - Acute cystitis with hematuria (3) Chronic diastolic heart failure Current visit: Yes Status: Acute Chronic condition with preserved EF. No signs of fluid overload at this time. We will carefully follow her and watch the amount of fluids administered. (4) NSTEMI (non-ST elevated myocardial infarction) Current visit: Yes Status: Acute Patient's troponin elevated at 8.12. We will continue to trend this value every 6 hours during her stay. Most likely due to sepsis and dehydration. Concern for ischemic injury due to supply demand mismatch. (5) Encephalopathy Current visit: Yes Status: Acute Patient has altered mental status per nursing facility. This likely due to sepsis from UTI. We will continue to monitor her mental status. At this time she is only alert to self. (6) Atrial fibrillation with RVR Current visit: Yes Status: Acute Patient presented to the emergency department with A. fib RVR. Cardizem drip was started. Patient has been hypotensive therefore we will load the patient with digoxin and stop the Cardizem. We will carefully follow her renal function. This is a chronic condition that the patient has been cardioverted multiple times for. (7) Acute kidney injury Current visit: Yes Status: Acute Patient's creatinine has increased from baseline of 0.98 to 1.67. Most likely due to dehydration and sepsis. We will continue to monitor kidney function and give fluids as needed. (8) Dementia Current visit: Yes Status: Chronic Chronic condition. We will continue to evaluate patient's mental status throughout her stay. Qualifiers: Dementia type: unspecified type Dementia behavioral disturbance: without behavioral disturbance Qualified Code(s): F03.90 - Unspecified dementia without behavioral disturbance (9) DVT prophylaxis Current visit: Yes Status: Acute Patient INR supratherapeutic at this point (10) Goals of care, counseling/discussion Current visit: Yes Status: Acute Spoke with the patient's about possible course of the hospital stay. He agrees to continue with medical management but has changed the patient to a DNR/DNI CCA History of Present Illness Chief complaint: Severe Sepsis HPI: Ms. Morgan is a 76 year old female with a past medical history of dementia, CHF , A. fib, COPD, and diabetes. She resides in a nursing facility due to her dementia. Her called in to the emergency department and stated that she has had generalized fatigue over the last 3 days and in addition she has had chronic abdominal pain. The patient is unable to give a reliable history due to her dementia. Patient sent to the emergency department for chief complaint of altered mental status. Upon examination, the patient was found to be in A. fib RVR. She has had this multiple times in the past. She has been cardioverted multiple times. Upon further evaluation the patient's urine shows to be pus like. A CT of the abdomen and pelvis was completed which did not show any signs of abscess or other fluid collection leading to the concern for severe sepsis due to this UTI. Spoke with the patient's who changed the patient's status to DNR CCA DNI. When patient arrived to the ICU she was acutely altered and only alert to herself. Patient's blood pressure has been low and labile. Decision was made to put a central line in the right internal jugular vein. Patient tolerated procedure well. She has no complaints at this time and has no pain at this time. Past Med Surg Social Fam HX - Past Medical History Medical history: cirrhosis, COPD, DVT, dementia, diabetes, peripheral artery disease, renal disease, other Psychiatric history: depression - Past Surgical History Surgical History: angioplasty/stent, hysterectomy, thyroidectomy, AICD - Social History Smoking Status: Former smoker Smokeless Tobacco Status: No Alcohol use: rarely Drug use: none - Family History Mother Living Status: Hx Family Cardiac Disorders: Yes Medications and Allergies Allopurinol [Zyloprim 100 MG] 100 mg PO DAILY 07/03/16 [History] Cholecalciferol (D-3) [Vitamin D] 2,000 unit PO DAILY 07/03/16 [History] Clopidogrel [Plavix] 75 mg PO DAILY 07/03/16 [History] Ferrous Sulfate 325 mg PO DAILY 07/03/16 [History] Isosorbide MONOnitrate (24 HR) [Imdur] 30 mg PO DAILY 07/03/16 [History] Levothyroxine [Synthroid] 150 mcg PO QAM 07/03/16 [History] Multivitamin [Multi-Day Vitamins] 1 each PO DAILY 07/03/16 [History] Oxygen 2 l NS AD 07/03/16 [History] Quetiapine Fumarate [Seroquel] 50 mg PO BID 07/03/16 [History] Rivastigmine Tartrate [Exelon] 3 mg PO BID 07/03/16 [History] Cranberry Fruit Extract [Cranberry] 425 mg PO DAILY 12/15/16 [History] Metoprolol Succinate 25 mg PO DAILY #10 tab.er.24h 12/18/16 [Rx] Atorvastatin Calcium [Lipitor] 20 mg PO HS 02/18/17 [History] Insulin Glargine,Hum.rec.anlog [Lantus Solostar] 22 unit SQ HS 02/18/17 [History ] Diltiazem CD (24hr) [Cardizem CD] 180 mg PO DAILY #30 cap.er.24h 02/22/17 [Rx] Acetaminophen [Tylenol] 650 mg PO Q4H PRN 08/21/17 [History] Benadryl 25mg/Haldol 1mg 1 ml TP Q2H PRN 08/21/17 [History] Citalopram [CeleXA] 20 mg PO DAILY 08/21/17 [History] Docusate [Colace] 100 mg PO BID 08/21/17 [History] Insulin ASPART [NovoLOG] 5 unit SQ TIDWM 08/21/17 [History] Ipratropium/Albuterol Neb [Duoneb] 3 ml IH QID PRN 08/21/17 [History] Polyethylene Glycol 3350 [MiraLAX] 17 gm PO DAILY 08/21/17 [History] Polyethylene Glycol 3350 [MiraLAX] 17 gm PO DAILY PRN 08/21/17 [History] Quetiapine Fumarate [SEROquel] 300 mg PO HS 08/21/17 [History] Warfarin [Coumadin] 3 mg PO 1800 08/21/17 [History] 3 Allergy/AdvReac Type Severity Reaction Status Date / Time lorazepam Allergy Anaphylaxis Verified 07/03/16 12:08 propoxyphene Allergy Anaphylaxis Verified 07/03/16 12:08 Sulfa (Sulfonamide Allergy Anaphylaxis Verified 07/03/16 12:08 Antibiotics) ROS unobtainable: due to mental status All Systems: A 10-system review of systems was performed and is negative for pertinent findings except as documented above in the HPI. Physical Examination Vital Signs: Vital Signs, Last 4 Hours Resp BP 08/21/17 16:54 18 93/80 General appearance: no acute distress, appears uncomfortable Eyes: nonicteric ENT: oropharynx moist Neck: supple, no JVD Effort: normal Inspection: normal Auscultation: bilateral: clear Cardiovascular: other (A. fib with RVR) Gastrointestinal: normoactive bowel sounds, soft, non-distended Integumentary: normal Extremities: no cyanosis, no edema Musculoskeletal: no deformities non-focal exam, unable to assess due to mental status mood appropriate Results - Laboratory Findings CBC and BMP: 08/21/17 12:27 08/21/17 12:27 PT/INR, D-dimer PT 21.3 Seconds (9.4-12.1) H 08/21/17 12:27 Abnormal lab findings: Abnormal lab results WBC 12.3 K/mcL (4.3-11.1) H 08/21/17 12:27 MCHC 30.4 g/dL (31.6-35.5) L 08/21/17 12:27 Neutrophils # 10.4 K/mcL (1.6-8.9) H 08/21/17 12:27 PT 21.3 Seconds (9.4-12.1) H 08/21/17 12:27 Potassium 4.9 mEq/L (3.5-4.5) H 08/21/17 12:27 BUN 23 mg/dL (7-20) H 08/21/17 12:27 Creatinine 1.67 mg/dL (0.57-1.11) H 08/21/17 12:27 Est GFR ( Amer) 36 (> 60) L 08/21/17 12:27 Est GFR (Non-Af Amer) 30 (> 60) L 08/21/17 12:27 Glucose 221 mg/dL (70-99) H 08/21/17 12:27 Lactic Acid 4.4 mmol/L (0.5-2.2) H* 08/21/17 14:34 AST 45 Units/L (5-34) H 08/21/17 12:27 Alkaline Phosphatase 162 Units/L (38-126) H 08/21/17 12:27 Troponin I 8.12 ng/mL (0-0.03) H* 08/21/17 12:27 B-Natriuretic Peptide 1943 pg/mL (0-100) H 08/21/17 12:27 Albumin 2.6 g/dL (3.5-5.0) L 08/21/17 12:27 Globulin 4.6 g/dL (2.4-3.5) H 08/21/17 12:27 Albumin/Globulin Ratio 0.6 (1.1-2.2) L 08/21/17 12:27 Urine Clarity Turbid (Clear) A 08/21/17 12:36 Urine Protein 100 mg/dL (Neg-Trace) H 08/21/17 12:36 Urine Blood Moderate (Negative) H 08/21/17 12:36 Ur Leukocyte Esterase Large (Negative) H 08/21/17 12:36 Urine Microscopic RBC 5-15 per hpf (0-3) H 08/21/17 12:36 Urine Microscopic WBC TNTC per hpf (0-3) H 08/21/17 12:36 Ur Squamous Epith Cells Many per lpf (None-Few) H 08/21/17 12:36 Urine Bacteria Many per hpf (None-Few) H 08/21/17 12:36 Ur Culture Indicated? YES (NO) A 08/21/17 12:36 - Diagnostic Findings Chest x-ray: report reviewed, image reviewed <[email or web address] holman W - Last Filed: 08/22/17 06:16> Date of Encounter: 08/22/17 History of Present Illness HPI: Ms. Morgan is a 76 year old female All Systems: A 10-system review of systems was performed and is negative for pertinent findings except as documented above in the HPI. Physical Examination Vital Signs: Vital Signs, Last 4 Hours Temp Pulse Resp BP Pulse Ox 08/21/17 18:00 108 22 86/54 95 08/21/17 17:00 99.2 F 102 22 96/61 97 08/21/17 16:54 18 93/80 Results - Laboratory Findings CBC and BMP: 08/22/17 03:45 08/22/17 03:45 PT/INR, D-dimer PT 21.3 Seconds (9.4-12.1) H 08/21/17 12:27 Abnormal lab findings: Abnormal lab results WBC 12.3 K/mcL (4.3-11.1) H 08/21/17 12:27 MCHC 30.4 g/dL (31.6-35.5) L 08/21/17 12:27 Neutrophils # 10.4 K/mcL (1.6-8.9) H 08/21/17 12:27 PT 21.3 Seconds (9.4-12.1) H 08/21/17 12:27 Potassium 4.9 mEq/L (3.5-4.5) H 08/21/17 12:27 BUN 23 mg/dL (7-20) H 08/21/17 12:27 Creatinine 1.67 mg/dL (0.57-1.11) H 08/21/17 12:27 Est GFR ( Amer) 36 (> 60) L 08/21/17 12:27 Est GFR (Non-Af Amer) 30 (> 60) L 08/21/17 12:27 Glucose 221 mg/dL (70-99) H 08/21/17 12:27 Lactic Acid 4.4 mmol/L (0.5-2.2) H* 08/21/17 14:34 AST 45 Units/L (5-34) H 08/21/17 12:27 Alkaline Phosphatase 162 Units/L (38-126) H 08/21/17 12:27 Troponin I 8.12 ng/mL (0-0.03) H* 08/21/17 12:27 B-Natriuretic Peptide 1943 pg/mL (0-100) H 08/21/17 12:27 Albumin 2.6 g/dL (3.5-5.0) L 08/21/17 12:27 Globulin 4.6 g/dL (2.4-3.5) H 08/21/17 12:27 Albumin/Globulin Ratio 0.6 (1.1-2.2) L 08/21/17 12:27 Urine Clarity Turbid (Clear) A 08/21/17 12:36 Urine Protein 100 mg/dL (Neg-Trace) H 08/21/17 12:36 Urine Blood Moderate (Negative) H 08/21/17 12:36 Ur Leukocyte Esterase Large (Negative) H 08/21/17 12:36 Urine Microscopic RBC 5-15 per hpf (0-3) H 08/21/17 12:36 Urine Microscopic WBC TNTC per hpf (0-3) H 08/21/17 12:36 Ur Squamous Epith Cells Many per lpf (None-Few) H 08/21/17 12:36 Urine Bacteria Many per hpf (None-Few) H 08/21/17 12:36 Ur Culture Indicated? YES (NO) A 08/21/17 12:36 - Attending Attestation I examined this patient and my medical decision-making was reviewed with the Resident Physician. I agree with the documented findings, disposition and treatment plan as described except to the extent set forth below. We independently had [id number] contact with the patient I spent 38min of Critical Care time with this patient. It involved decision making of high complexity to assess, manipulate, and support vital organ system failure and/or to prevent further life threatening deterioration of the patient' s condition. The time involved in the performance of separately reportable procedures was not counted toward critical care time. Patient seen and examined at bedside Labs, radiology, chart personally reviewed. Management was reviewed during multidisciplinary critical care rounds. Neuropsych: Mild encephalopathy on baseline dementia. No focal neurological deficit continue to monitor Pulm: Acute on chronic hypoxic respiratory failure stable on nasal cannula if worsening hypoxia may benefit from noninvasive ventilation we will continue to follow this closely Cards: Atrial fibrillation with rapid ventricular response stopping diltiazem because of borderline low blood pressures digoxin load will be made half load for renal failure. She has an NSTEMI which is secondary to demand ischemia as opposed to ACS she is not endorsing any active chest pain this is likely a combination of heart failure atrial fibrillation and sepsis. She is anticoagulated and therapeutic on this for underlying atrial fibrillation could start heparin infusion once she is no longer therapeutic repeat INR pending decompensation from cardiovascular causes including development of distributive shock. She also has underlying acute on chronic heart failure with BNP greater than 1900. Goal map greater than 65 FEN-GI: sips by mouth for now after she passes bedside swallow eval. Renal: Acute kidney injury which is secondary to vascular congestion versus volume depletion underlying sepsis. We will continue to monitor her urine output Razo catheter placed ID: severe sepsis elevated lactate and evidence of end organ damage including cardiovascular and renal. Source is likely urinary in nature her urine is frankly purulent cultures of been sent from this she has a history of ESBL and VRE which are being appropriately covered with vancomycin and meropenem. We will de-escalate antimicrobials based upon sensitivities. Blood cultures have also been obtained and are pending. She has been volume resuscitated in a judicious manner because of underlying heart failure. She has gotten total 2 L of combination of crystalloid and colloid bolus her respiratory status is no worse from this standpoint we can continue small colloid boluses as patient tolerates. CT of the abdomen was obtained without evidence of purulent collection that could be amenable to drainage or need for surgery for source control. Heme/Onc: hemoglobin stable. Anticoagulated for atrial fibrillation and is therapeutic currently we will hold this and may need to transition to heparin infusion as to [facility] clinical course Endo: Glucose Monitored Integ/MSK: Skin Care per routine ICU Nursing Protocol to prevent ulcers. Lines: Right IJ central venous catheter was placed Dispo: She will remain in ICU today CODE: DNRA/DNI. 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 He was clear that his is been ill for several years and is living in a skilled nursing her quality of life is poor baseline and she has advanced dementia he was adamant that they have already discussed this in the past and she did not want aggressive care and that means no heroic measures including intubation and cardiopulmonary resuscitation or cardioversion. She also would not want to go further with possibility of invasive ischemic cardiac evaluation such as left heart catheterization even if it was required. As such her CODE STATUS has been adjusted to reflect this. Overall prognosis guarded at best and she has the high probability of further deterioration and demise which I expressed the . I will consult palliative care for ongoing goals of care discussion tomorrow. The patient is unable or incompetent to participate in giving a history and/or making treatment decisions. The discussion was necessary for determining treatment decision. This discussion took place on the phone. The total meeting time was 10 minutes
[2017-08-21] MEDS ORDERED: Vancomycin 1,500 MG in D5% in Water 250 ML IVPB ONE (17:16)
[2017-08-21] MEDS ORDERED: Phenylephrine 10 MG in D5% in Water 250 ML IVC SCH (18:00)
--- NOTE | 2017-08-21 19:22 | Procedure Note ---
<Lucy Dove L - Last Filed: 08/21/17 19:22> Date of procedure: 08/21/17 Pre-op diagnosis: Severe Sepsis Post-op diagnosis: same Procedure: A time-out was completed verifying correct patient, procedure, site, positioning , and special equipment if applicable. The patient was placed in a dependent position appropriate for central line placement based on the vein to be cannulated. The patients right neck was prepped and draped in sterile fashion. 1 % Lidocaine was used to anesthetize the surrounding skin area. A triple lumen catheter was introduced into the the internal jugular vein using ultrasound guidance. I attempted the procedure once. Was unsuccessful. The attending then took over. The catheter was threaded smoothly over the guide wire and appropriate blood return was obtained. Each lumen of the catheter was evacuated of air and flushed with sterile saline. The catheter was then sutured in place to the skin and a sterile dressing applied. Perfusion to the extremity distal to the point of catheter insertion was checked and found to be adequate. Attending was present for the entire procedure. The patient tolerated the procedure well and there were no complications. Pathology: none sent Condition: stable Disposition: ICU <Ky Pugh W - Last Filed: 08/22/17 06:17> Attestation Statement - Attestation Attestation: I examined this patient and my medical decision-making was reviewed with the Resident Physician. I agree with the documented findings plan as described. I was present and performed the procedure with resident
[2017-08-21 19:28] LABS: Basophils % 0.2 %; Hematocrit 29.5 % (35.3-44.9); Immature Granulocytes % 0.2 % (0-4); Lymphocytes # 1.6 K/mcL (0.6-4.6); Lymphocytes % 14.4 %; Mean Corpuscular HGB Conc 31.2 g/dL (31.6-35.5); Mean Corpuscular Hemoglobin 28.5 pg (28.0-33.3); Mean Corpuscular Volume 91.3 fL (83.0-100.0); Mean Platelet Volume 10.8 fL (9.4-12.4); Monocytes # 0.7 K/mcL (0.0-1.3); Monocytes % 6.3 %; Neutrophils # 8.8 K/mcL (1.6-8.9); Platelet Count 191 K/mcL (140-400); Red Blood Count 3.23 M/mcL (3.82-4.97); Red Cell Distribution Width 13.9 % (11.5-14.5); Segmented Neutrophils % 78.9 %
[2017-08-21] MEDS ORDERED: *HR* Digoxin 0.5 MG/2 ML AMPUL IVP ONE (19:29)
[2017-08-21 19:32] LABS: Hemoglobin 9.2 g/dL (11.5-15.4)
[2017-08-21 19:38] LABS: Calcium 8.3 mg/dL (8.6-10.8); Magnesium 1.8 mg/dL (1.6-2.6); Potassium 4.8 mEq/L (3.5-4.5)
--- NOTE | 2017-08-21 21:30 | Event Note ---
Date of Encounter: 08/21/17 Time of Encounter: 21:19 Patient had significant elevation in Troponin I from 8.12 to 21.28 after 5 hours. Patient is pleasantly demented and reports no acute chest pain at this time. Repeat EKG shows HR 102, A-fib with RVR, incomplete RBBB, and moderate ST depression.Patient already received ASA 325mg at 14:02 and has been on Cardizem drip for A-fib RVR. She was also given Digoxin. Her BP is 110/59 and SpO2 96% in NRB mask. Cardiology consulted. Spoke with Dr. Ortega. Will stop Cardizem drip, start Amiodarone drip without bolus, Heparin drip without bolus, and one time dose of Lasix. Cardiology will evaluate the patient in the morning. After discussion with family earlier today, patient would not want invasive ischemic cardiac evaluation such as left heart catheterization even if it was required and her CODE STATUS was adjusted to reflect this. Of note, her HGB also dropped from 11.6 to 9.2 following sepsis bolus. Will initiate weight based Heparin and continue to optimize medical management at this time. Continue serial H&H q8h and monitor serial troponins. Discontinue Heparin drip if any signs of bleeding or H&H drops below 7.
[2017-08-21] MEDS ORDERED: Nitroglycerin 0.4 MG TAB.SUBL SL PRN (21:34)
[2017-08-21] MEDS ORDERED: *HR* Morphine 2 MG/ML SYRINGE IVP PRN (21:34)
[2017-08-21] MEDS ORDERED: *HR* Heparin 5,000 UNIT/ML VIAL IVP PRN ×2 (21:48)
[2017-08-21] MEDS ORDERED: Furosemide 40 MG/4 ML VIAL IVP ONE (21:50)
[2017-08-21] MEDS ORDERED: Heparin 25,000 UNIT/500 ML D5W 25,000 UNIT/500 ML MLS IVC SCH (22:00)
[2017-08-21] MEDS ORDERED: Amiodarone Premix 360 MG/200 ML BAG IVC ONE (22:00)
[2017-08-21 22:04] LABS: INR 2.2; Prothrombin Time 23.8 Seconds (9.4-12.1)
[2017-08-21 22:06] LABS: Activated Partial Thrombo Time 34.6 Seconds (26.0-36.0)
[2017-08-21 22:10] LABS: Hematocrit 29.7 % (35.3-44.9); Hemoglobin 9.2 g/dL (11.5-15.4); Mean Corpuscular Hemoglobin 28.4 pg (28.0-33.3); Mean Corpuscular Volume 91.7 fL (83.0-100.0); Platelet Count 182 K/mcL (140-400); Red Blood Count 3.24 M/mcL (3.82-4.97); Red Cell Distribution Width 13.9 % (11.5-14.5)
[2017-08-22 03:53] LABS: Basophils % 0.2 %; Eosinophils % 0.4 %; Hemoglobin 8.9 g/dL (11.5-15.4); Immature Granulocytes % 0.2 % (0-4); Lymphocytes # 1.7 K/mcL (0.6-4.6); Lymphocytes % 18.4 %; Mean Corpuscular HGB Conc 30.7 g/dL (31.6-35.5); Mean Corpuscular Hemoglobin 28.3 pg (28.0-33.3); Mean Corpuscular Volume 92.4 fL (83.0-100.0); Mean Platelet Volume 10.6 fL (9.4-12.4); Monocytes # 0.6 K/mcL (0.0-1.3); Monocytes % 6.4 %; Neutrophils # 6.9 K/mcL (1.6-8.9); Platelet Count 161 K/mcL (140-400); Red Blood Count 3.14 M/mcL (3.82-4.97); Red Cell Distribution Width 13.8 % (11.5-14.5); Segmented Neutrophils % 74.4 %
[2017-08-22 04:00] LABS: INR 2.4; Prothrombin Time 25.8 Seconds (9.4-12.1)
[2017-08-22 04:24] LABS: Calcium 8.2 mg/dL (8.6-10.8); Magnesium 1.9 mg/dL (1.6-2.6); Potassium 4.9 mEq/L (3.5-4.5)
[2017-08-22] MEDS: Amiodarone Premix 360 MG/200 ML BAG IVC SCH ×2 (04:28→16:00)
--- NOTE | 2017-08-22 06:55 | Pulmonology Progress Note ---
<LexyKy W - Last Filed: 08/22/17 10:08> Date of Encounter: 08/22/17 Objective PUL Vital signs: Last Vital Signs Temp 97.7 F 08/22/17 08:11 Pulse 100 08/22/17 09:00 Resp 16 08/22/17 09:00 BP 108/60 08/22/17 09:00 Pulse Ox 95 08/22/17 09:00 Results - Laboratory Findings CBC and BMP: 08/22/17 07:04 08/22/17 03:45 PT/INR, D-dimer PT 25.8 Seconds (9.4-12.1) H 08/22/17 03:45 Abnormal lab findings: Abnormal lab results RBC 3.27 M/mcL (3.82-4.97) L 08/22/17 07:04 Hgb 9.2 g/dL (11.5-15.4) L 08/22/17 07:04 Hct 30.2 % (35.3-44.9) L 08/22/17 07:04 MCHC 30.5 g/dL (31.6-35.5) L 08/22/17 07:04 PT 25.8 Seconds (9.4-12.1) H 08/22/17 03:45 APTT 58.0 Seconds (26.0-36.0) H D 08/22/17 03:45 Potassium 4.9 mEq/L (3.5-4.5) H 08/22/17 03:45 BUN 28 mg/dL (7-20) H 08/22/17 03:45 Creatinine 2.04 mg/dL (0.57-1.11) H 08/22/17 03:45 Est GFR ( Amer) 29 (> 60) L 08/22/17 03:45 Est GFR (Non-Af Amer) 24 (> 60) L 08/22/17 03:45 Glucose 200 mg/dL (70-99) H 08/22/17 03:45 POC Glucose 198 (58-89) H 08/21/17 23:46 Calcium 8.2 mg/dL (8.6-10.8) L 08/22/17 03:45 Ionized Calcium 1.08 mmol/L (1.15-1.35) L 08/21/17 19:10 AST 45 Units/L (5-34) H 08/21/17 12:27 Alkaline Phosphatase 162 Units/L (38-126) H 08/21/17 12:27 Troponin I 25.67 ng/mL (0-0.03) H* 08/22/17 07:04 B-Natriuretic Peptide 1943 pg/mL (0-100) H 08/21/17 12:27 Albumin 2.6 g/dL (3.5-5.0) L 08/21/17 12:27 Globulin 4.6 g/dL (2.4-3.5) H 08/21/17 12:27 Albumin/Globulin Ratio 0.6 (1.1-2.2) L 08/21/17 12:27 Urine Clarity Turbid (Clear) A 08/21/17 12:36 Urine Protein 100 mg/dL (Neg-Trace) H 08/21/17 12:36 Urine Blood Moderate (Negative) H 08/21/17 12:36 Ur Leukocyte Esterase Large (Negative) H 08/21/17 12:36 Urine Microscopic RBC 5-15 per hpf (0-3) H 08/21/17 12:36 Urine Microscopic WBC TNTC per hpf (0-3) H 08/21/17 12:36 Ur Squamous Epith Cells Many per lpf (None-Few) H 08/21/17 12:36 Urine Bacteria Many per hpf (None-Few) H 08/21/17 12:36 Ur Culture Indicated? YES (NO) A 08/21/17 12:36 - Clinical Findings Intake & Output: Intake & Output 08/21/17 08/22/17 08/22/17 23:59 07:59 15:59 Intake Total 530 / 530 559 / 559 Output Total 350 / 350 Balance 180 / 180 534 / 534 -25 / -25 Weight 107.6 kg 108.055 kg Consult Discharge Plan - Plan Referrals: Colton Hernandez DO [Primary Care Provider] - - Attending Attestation I examined this patient and my medical decision-making was reviewed with the Resident Physician. I agree with the documented findings, disposition and treatment plan as described except to the extent set forth below. We independently had [id number] contact with the patient Patient seen and examined at bedside Labs, radiology, chart personally reviewed. Management was reviewed during multidisciplinary critical care rounds. Neuropsych: Mild encephalopathy on baseline dementia. No focal neurological deficit continue to monitor Pulm: Acute on chronic hypoxic respiratory failure stable on nasal cannula if worsening hypoxia stable on Oxymask may benefit from noninvasive ventilation we will continue to follow this closely. Cards: NSTEMI troponin now greater than 25 conservative management requested by family cardiology consulted continue heparin infusion aspirin and can introduce beta stephany once blood pressure can tolerate. She remains in Atrial fibrillation now rate controlled after amiodarone infusion.. Echocardiogram requested today. FEN-GI: sips by mouth for now Renal: Acute kidney injury which is secondary to hypotension sepsis volume depletion. Poor urine output I suspect this will continue to get worse we will continue to closely monitor her electrolytes including potassium. ID: severe sepsis secondary urinary source she is covered appropriately for multidrug resistant urinary tract infections in the past. Continue antimicrobials were planned to de-escalate cultures pending lactate has normalized encouragingly. Heme/Onc: hemoglobin stable. Continue heparin infusion for ACS protocol. Holding warfarin Endo: Glucose Monitored Integ/MSK: Skin Care per routine ICU Nursing Protocol to prevent ulcers. Lines: All lines examined without evidence of infection including right internal jugular central venous catheter Dispo: She will remain in ICU today CODE: DNRA/DNI. I updated the patient's Spencer states today and explained that overall her prognosis is extremely poor and I suspect that she will deteriorate in the next 24-48 hours. If that is the case he would be very reasonable to pursue hospice measures and I have requested palliative care consultation to address further goals of care and encouraged him and his family to come to the hospital today if possible because of the seriousness of her condition. <Lucy Dove - Last Filed: 08/22/17 10:21> Date of Encounter: 08/22/17 Time of Encounter: 06:55 Assessment and Plan (1) Severe sepsis Current Visit: Yes Status: Acute Patient presented to the emergency department with urinary tract infection causing end organ damage including increasing creatinine and altered mental status. Patient had persistent hypotension requiring the insertion of the right IJ central line. Patient currently off pressors at this time with stable blood pressure. We cannot fluid bolus aggressively due to her chronic decompensated diastolic heart failure. Most likely source of infection is the urinary tract. Razo removed pus filled urine. UA showed infection. Currently awaiting cultures. Started the patient on vancomycin and meropenem due to previous history of VRE and ESBL. (2) UTI (urinary tract infection) Current Visit: Yes Status: Acute The patient presented to the emergency department with no chief complaint. Upon insertion of the Razo catheter pus filled urine was removed. CT the abdomen and pelvis did not show any signs of abscess or other infectious cause. UA was completed along with culture. Cultures currently pending. We will start the patient on vancomycin and meropenem due to previous urine culture is growing VRE and ESBL. Qualifiers: Qualified Code(s): N30.01 - Acute cystitis with hematuria (3) Chronic diastolic heart failure Current Visit: Yes Status: Acute Chronic condition with preserved EF. No signs of fluid overload at this time. We will carefully follow her and watch the amount of fluids administered. Echo completed this morning pending results. (4) NSTEMI (non-ST elevated myocardial infarction) Current Visit: Yes Status: Acute Patient's troponin elevated at 27.54. We will continue to trend this value every 6 hours during her stay. Patient is a DNR CCA DNI therefore she does not wish to do aggressive measurement such as catheterization. Cardiology has been consulted. Palate and has also been consulted. Echo completed at this time pending results. (5) Encephalopathy Current Visit: Yes Status: Acute Patient has altered mental status per nursing facility. This is most likely due to sepsis from UTI. We will continue to monitor her mental status. At this time she is only alert to self. (6) Atrial fibrillation with RVR Current Visit: Yes Status: Acute Patient presented to the emergency department with A. fib RVR. Cardizem drip was started. Patient has been hypotensive therefore we will load the patient with digoxin and stopped the Cardizem. We will carefully follow her renal function. This is a chronic condition that the patient has been cardioverted multiple times for. Patient currently still in A. fib but is now rate controlled. (7) Acute kidney injury Current Visit: Yes Status: Acute Patient's creatinine has increased from baseline of 0.98 to 2.04. Most likely due to dehydration and sepsis. We will continue to monitor kidney function and give fluids as needed. (8) Dementia Current Visit: Yes Status: Chronic Chronic condition. We will continue to evaluate patient's mental status throughout her stay. Qualifiers: Qualified Code(s): F03.90 - Unspecified dementia without behavioral disturbance (9) DVT prophylaxis Current Visit: Yes Status: Acute Heparin drip (10) Goals of care, counseling/discussion Current Visit: Yes Status: Acute Spoke with the patient's about possible course of the hospital stay. He agrees to continue with medical management but has changed the patient to a DNR/DNI CCA. Pallative has been consulted due to recent results of elevated troponin and NSTEMI with decreased ejection fraction per echo Subjective Principal diagnosis: Severe Sepsis Interval history: Patient's troponin continued to trend upward overnight reaching a maximum of 27.54. Patient is a DNR CCA DNI and does not wish to do any invasive therapies including catheterization. Cardiology has been consult at along with palliative care. Heparin drip was started. Will speak to patient's family about overall prognosis and possible transfer to hospice care. Objective PUL Vital signs: Last Vital Signs Temp 97.9 F 08/22/17 03:00 Pulse 78 08/22/17 06:00 Resp 21 08/22/17 06:00 BP 104/47 08/22/17 06:00 Pulse Ox 90 08/22/17 06:00 General appearance: no acute distress, alert (Only to herself) Eyes: nonicteric ENT: oropharynx moist Neck: supple, no JVD Auscultation: bilateral: diminished breath sounds Cardiovascular: other (Rate controlled A. fib with RVR) Gastrointestinal: normoactive bowel sounds, soft, non-distended Integumentary: normal Extremities: no cyanosis, no edema Musculoskeletal: no deformities Gait: normal posture non-focal exam mood appropriate, affect normal Results - Laboratory Findings CBC and BMP: 08/22/17 07:04 08/22/17 03:45 PT/INR, D-dimer PT 25.8 Seconds (9.4-12.1) H 08/22/17 03:45 Abnormal lab findings: Abnormal lab results RBC 3.14 M/mcL (3.82-4.97) L 08/22/17 03:45 Hgb 8.9 g/dL (11.5-15.4) L 08/22/17 03:45 Hct 29.0 % (35.3-44.9) L 08/22/17 03:45 MCHC 30.7 g/dL (31.6-35.5) L 08/22/17 03:45 PT 25.8 Seconds (9.4-12.1) H 08/22/17 03:45 APTT 58.0 Seconds (26.0-36.0) H D 08/22/17 03:45 Potassium 4.9 mEq/L (3.5-4.5) H 08/22/17 03:45 BUN 28 mg/dL (7-20) H 08/22/17 03:45 Creatinine 2.04 mg/dL (0.57-1.11) H 08/22/17 03:45 Est GFR ( Amer) 29 (> 60) L 08/22/17 03:45 Est GFR (Non-Af Amer) 24 (> 60) L 08/22/17 03:45 Glucose 200 mg/dL (70-99) H 08/22/17 03:45 POC Glucose 198 (58-89) H 08/21/17 23:46 Calcium 8.2 mg/dL (8.6-10.8) L 08/22/17 03:45 Ionized Calcium 1.08 mmol/L (1.15-1.35) L 08/21/17 19:10 AST 45 Units/L (5-34) H 08/21/17 12:27 Alkaline Phosphatase 162 Units/L (38-126) H 08/21/17 12:27 Troponin I 27.54 ng/mL (0-0.03) H* 08/22/17 01:23 B-Natriuretic Peptide 1943 pg/mL (0-100) H 08/21/17 12:27 Albumin 2.6 g/dL (3.5-5.0) L 08/21/17 12:27 Globulin 4.6 g/dL (2.4-3.5) H 08/21/17 12:27 Albumin/Globulin Ratio 0.6 (1.1-2.2) L 08/21/17 12:27 Urine Clarity Turbid (Clear) A 08/21/17 12:36 Urine Protein 100 mg/dL (Neg-Trace) H 08/21/17 12:36 Urine Blood Moderate (Negative) H 08/21/17 12:36 Ur Leukocyte Esterase Large (Negative) H 08/21/17 12:36 Urine Microscopic RBC 5-15 per hpf (0-3) H 08/21/17 12:36 Urine Microscopic WBC TNTC per hpf (0-3) H 08/21/17 12:36 Ur Squamous Epith Cells Many per lpf (None-Few) H 08/21/17 12:36 Urine Bacteria Many per hpf (None-Few) H 08/21/17 12:36 Ur Culture Indicated? YES (NO) A 08/21/17 12:36 - Diagnostic Findings Chest x-ray: report reviewed, image reviewed - Clinical Findings Intake & Output: Intake & Output 08/21/17 08/21/17 08/22/17 15:59 23:59 07:59 Intake Total 530 / 530 559 / 559 Output Total 350 / 350 25 / 25 Balance 180 / 180 534 / 534 Weight 107.6 kg 108.055 kg
[2017-08-22 07:13] LABS: Hematocrit 30.2 % (35.3-44.9); Hemoglobin 9.2 g/dL (11.5-15.4); Immature Platelets 5.1 % (1.1-6.1); Mean Corpuscular HGB Conc 30.5 g/dL (31.6-35.5); Mean Corpuscular Hemoglobin 28.1 pg (28.0-33.3); Mean Corpuscular Volume 92.4 fL (83.0-100.0); Mean Platelet Volume 10.7 fL (9.4-12.4); Red Blood Count 3.27 M/mcL (3.82-4.97); Red Cell Distribution Width 13.9 % (11.5-14.5)
[2017-08-22] MEDS ORDERED: Perflutren Lipid Microsphere 1.3 ML in 0.9 % Sodium Chloride 8.7 ML IVP ONE (08:29)
[2017-08-22] MEDS ORDERED: Aspirin Enteric Coated 81 MG Tablet PO SCH (09:00)
[2017-08-22] MEDS ORDERED: *HR* Heparin 5,000 UNIT/ML VIAL IVP PRN ×2 (09:58)
[2017-08-22] MEDS ORDERED: D5% in Water 1,000 ML IVC PRN (10:00)
[2017-08-22] MEDS ORDERED: Dextrose Gel 15 GM PO PRN ×2 (10:00)
[2017-08-22] MEDS ORDERED: Heparin 25,000 UNIT/500 ML D5W 25,000 UNIT/500 ML MLS IVC SCH (10:00)
[2017-08-22] MEDS ORDERED: *HR* Dextrose 50 % in Water (Syg) 50 ML SYRINGE IVP PRN (10:00)
--- NOTE | 2017-08-22 10:12 | Palliative - Consult Note ---
Date of Encounter: 08/22/17 Time of Encounter: 09:45 - Assessment and Plan (1) Goals of care, counseling/discussion Current Visit: Yes Status: Acute Assessment and plan: Patient resides in ECF. History of Alzheimer's dementia. Spencer #[phone]. Daughter Mary [phone]. Patient code status is DNRCC - A, DNI. Patient with NSTEMI and trending up Troponin levels. Cardiology consult pending. Patient remains in A.Fib and she has an AICD in place. Case discussed with Dr. Carver, Entry Level Software Engineer. Patient EF 35%. Attempted to call Spencer, patients but no answer. Nursing reports that he was not going to visit until tomorrow. Patient vitals stable, receiving Amiodarone and Heparin IV. Cultures pending. Patient on Meropenem. Will continue to make contact with family and await input from Cardiology as patients family doesn't desire aggressive interventions but currently on board with medical management. (2) Dementia Current Visit: Yes Status: Chronic Qualifiers: Dementia type: unspecified type Dementia behavioral disturbance: without behavioral disturbance Qualified Code(s): F03.90 - Unspecified dementia without behavioral disturbance (3) Atrial fibrillation Current Visit: No Status: Acute Qualifiers: Atrial fibrillation type: paroxysmal Qualified Code(s): I48.0 - Paroxysmal atrial fibrillation (4) UTI (urinary tract infection) Current Visit: No Status: Acute Qualifiers: Urinary tract infection type: acute cystitis Hematuria presence: without hematuria Qualified Code(s): N30.00 - Acute cystitis without hematuria Palliative-CN HPI - Data of Consult Patient: new to practice Consult date: 08/22/17 Requesting Physician: Ky Pugh MD Primary Care Provider: Colton Hernandez - Consult Narrative Palliative Care/Comfort Measures: Palliative care Reason for consult: Goals of Care History of present illness: Ms. Morgan is a 76 year old female admitted on 08/21/17 with AMS, UTI, Sepsis and Atrial Fibrillation. Patient resides in an ECF and has Alzheimer's Dementia. History is obtained from medical records and family. PMH includes CHF , A. fib, COPD, DM II and dementia. Patient was admitted to ICU and labs revealed an elevated lactic acid of 2.6 at peak, serial troponins continue to trend up at 25.6. An Echocardiogram revealed an EF 35%. Patient is currently in A. Fib and is receiving Amiodarone and Heparin IV and IV antibiotics. A Cardiology consult is pending. This palliative care consult is for goals of care discussion as patients has indicated that no aggressive medical interventions are desired. Upon this consult the patient is pleasantly alert and oriented to person. She is unable to provide accurate details related to her history. CC: Ky Pugh MD Past Med Surg Social Fam HX - Past Medical History Source: old records reviewed, obtained from family Medical history: cirrhosis, COPD, DVT, dementia, diabetes, peripheral artery disease, renal disease, other Psychiatric history: depression - Past Surgical History Surgical History: angioplasty/stent, hysterectomy, thyroidectomy, AICD - Social History Smoking Status: Former smoker Smokeless Tobacco Status: No Alcohol use: rarely Drug use: none Occupational status: unemployed Current living situation: [facility] Activity Level: Uses cane/walker Recent Out of Country Travel Within the Last 8 Weeks: No Exposure or Possible Exposure to Illness During Travel: No - Family History Mother Living Status: Hx Family Cardiac Disorders: Yes Medications and Allergies Allopurinol [Zyloprim 100 MG] 100 mg PO DAILY 07/03/16 [History] Cholecalciferol (D-3) [Vitamin D] 2,000 unit PO DAILY 07/03/16 [History] Clopidogrel [Plavix] 75 mg PO DAILY 07/03/16 [History] Ferrous Sulfate 325 mg PO DAILY 07/03/16 [History] Isosorbide MONOnitrate (24 HR) [Imdur] 30 mg PO DAILY 07/03/16 [History] Levothyroxine [Synthroid] 150 mcg PO QAM 07/03/16 [History] Multivitamin [Multi-Day Vitamins] 1 each PO DAILY 07/03/16 [History] Oxygen 2 l NS AD 07/03/16 [History] Quetiapine Fumarate [Seroquel] 50 mg PO BID 07/03/16 [History] Rivastigmine Tartrate [Exelon] 3 mg PO BID 07/03/16 [History] Cranberry Fruit Extract [Cranberry] 425 mg PO DAILY 12/15/16 [History] Metoprolol Succinate 25 mg PO DAILY #10 tab.er.24h 12/18/16 [Rx] Atorvastatin Calcium [Lipitor] 20 mg PO HS 02/18/17 [History] Insulin Glargine,Hum.rec.anlog [Lantus Solostar] 22 unit SQ HS 02/18/17 [History ] Diltiazem CD (24hr) [Cardizem CD] 180 mg PO DAILY #30 cap.er.24h 02/22/17 [Rx] Acetaminophen [Tylenol] 650 mg PO Q4H PRN 08/21/17 [History] Benadryl 25mg/Haldol 1mg 1 ml TP Q2H PRN 08/21/17 [History] Citalopram [CeleXA] 20 mg PO DAILY 08/21/17 [History] Docusate [Colace] 100 mg PO BID 08/21/17 [History] Insulin ASPART [NovoLOG] 5 unit SQ TIDWM 08/21/17 [History] Ipratropium/Albuterol Neb [Duoneb] 3 ml IH QID PRN 08/21/17 [History] Polyethylene Glycol 3350 [MiraLAX] 17 gm PO DAILY 08/21/17 [History] Polyethylene Glycol 3350 [MiraLAX] 17 gm PO DAILY PRN 08/21/17 [History] Quetiapine Fumarate [SEROquel] 300 mg PO HS 08/21/17 [History] Warfarin [Coumadin] 3 mg PO 1800 08/21/17 [History] 3 Allergy/AdvReac Type Severity Reaction Status Date / Time lorazepam Allergy Anaphylaxis Verified 07/03/16 12:08 propoxyphene Allergy Anaphylaxis Verified 07/03/16 12:08 Sulfa (Sulfonamide Allergy Anaphylaxis Verified 07/03/16 12:08 Antibiotics) ROS unobtainable: due to mental status (patient with Alzheimers Dementia) - Constitutional Constitutional ROS PAL: fatigue - Cardiovascular Cardiovascular ROS: irregular heart rhythm - Respiratory Respiratory: dyspnea on exertion - Gastrointestinal Gastrointestinal: as per HPI - Musculoskeletal Musculoskeletal ROS IM: muscle weakness - Integumentary ROS Integumentary: wounds (Coccyx and left diaz. Both have Allevyn dressings on) - Neurological Neurological ROS: weakness - Psychiatric Psychiatric general PM: memory loss Palliative Care-Exam - Constitutional Vitals: Temp Pulse Resp BP Pulse Ox 97.7 F 100 16 108/60 95 08/22/17 08:11 08/22/17 09:00 08/22/17 09:00 08/22/17 09:00 08/22/17 09:00 General appearance: Present: cooperative, no acute distress - Head Head Exam: Present: atraumatic - Eye Eye exam: Present: PERRL - ENT ENT exam: Present: mucous membranes moist - Neck Neck exam: Present: full ROM - Respiratory Respiratory exam: Present: decreased breath sounds - Expanded Respiratory Exam Location: decreased breath sounds: Left, Right, Lower - Cardiovascular Cardiovascular exam: Present: irregular rhythm, +S1, +S2 Additional comments: Atrial Fibrillation - Expanded Cardiovascular Exam Peripheral pulses: 1+: Femoral (L) PM, Femoral (R) PM, Posterior Tibialis (L), Posterior Tibialis (R), Dorsalis Pedis (L) PM (cool), Dorsalis Pedis (R) PM ( cool), 2+: Carotid (L) PM, Carotid (R) PM, Radial (L), Radial (R) - GI/Abdominal Exam GI/Abdominal exam: Present: normal bowel sounds, soft - Catheter Type: Urethral (Razo) (light yellow urine with sediment) - Expanded Upper Extremities Exam Shoulder exam: Present: full ROM Upper Arm exam: Present: full ROM Forearm wrist exam: Present: full ROM - Expanded Lower Extremities Exam Upper Leg exam: Present: full ROM Lower Leg exam: Present: full ROM - Neurological Exam Neurological exam: Present: altered - Expanded Neurological Exam Coma Scale Eye Opening: Spontaneous Coma Scale Motor Response: Obeys Commands Coma Scale Verbal Response: Confused Coma Scale Total: 14 - Psychiatric Psychiatric exam: Present: normal affect - Skin Skin exam: Present: normal color, pallor Internal Medicine - CN: Reslt - Labs CBC & Chem 7: 08/22/17 07:04 08/22/17 03:45 Labs: Short CBC 08/21/17 08/21/17 08/22/17 Range/Units 19:10 21:46 03:45 WBC 11.1 10.1 9.3 (4.3-11.1) K/mcL Hgb 9.2 L D 9.2 L 8.9 L (11.5-15.4) g/dL Hct 29.5 L 29.7 L 29.0 L (35.3-44.9) % Plt Count 191 182 161 (140-400) K/mcL Neutrophils # 8.8 6.9 (1.6-8.9) K/mcL 08/22/17 Range/Units 07:04 WBC 10.9 (4.3-11.1) K/mcL Hgb 9.2 L (11.5-15.4) g/dL Hct 30.2 L (35.3-44.9) % Plt Count 187 (140-400) K/mcL Neutrophils # (1.6-8.9) K/mcL BMP 08/21/17 08/22/17 19:10 03:45 Sodium 139 138 Potassium 4.8 H 4.9 H Chloride 101 101 Carbon Dioxide 28 29 BUN 25 H 28 H Creatinine 1.89 H 2.04 H Glucose 213 H 200 H Calcium 8.3 L 8.2 L Cardiac Enzymes 08/21/17 08/22/17 08/22/17 Range/Units 17:10 01:23 07:04 Troponin I 21.28 H* 27.54 H* 25.67 H* (0-0.03) ng/mL - ABG Interpretation ABG results: PT/INR, D-dimer PT 25.8 Seconds (9.4-12.1) H 08/22/17 03:45 - Impressions Impressions Chest X-Ray 08/21/17 17:59 IMPRESSION: Right-sided central venous catheter placement with the tip overlying the mid SVC. No pneumothorax. D/ / John Whitlock MD / John Whitlock MD Interpreting Provider: John Whitlock MD Consult Discharge Plan - Plan Referrals: Colton Hernandez DO [Primary Care Provider] - Palliative Quality Palliative Quality: Screen for Code Status: Yes, Screen for Goals of Care: Yes, Screen for Pain: Yes, If Pain Regimen Started, Initiate Bowel Regimen: No, Screen for Nausea/Vomitting: Yes Code Status: 08/21/17 19:26 Resuscitation Status: Active [RES] Routine Comment: Resuscitation Status: [id number]
[2017-08-22] MEDS: Insulin LISPRO 300 UNITS/3 ML VIAL SQ SCH ×4 (10:15→20:01)
[2017-08-22 11:12] LABS: INR 2.6; Prothrombin Time 28.6 Seconds (9.4-12.1)
[2017-08-22 11:15] LABS: Activated Partial Thrombo Time 75.2 Seconds (26.0-36.0)
--- NOTE | 2017-08-22 11:48 | Cardiology Consult Note ---
<Angelo Gomes - Last Filed: 08/22/17 11:45> Date of Encounter: 08/22/17 Time of Encounter: 11:40 Assessment and Plan (1) NSTEMI (non-ST elevated myocardial infarction) Current Visit: Yes Status: Acute Troponin elevated up to 27.54 and trending down. No acute changes on EKG. Atrial fibrillation. Also elevated in the setting of atrial fibrillation with RVR and possible sepsis. Denies chest pain. LHC vs medical management discussed. R/B/A of LHC discussed. They are agreeable to LHC once patient is stable. They agree to withdraw DNRCCA status for 24 hours sara-procedure. Once patient is stable from kidney and anemia standpoint we will plan for possible LHC. Hold coumadin. Re-start heparin gtt once INR 2.0 or less. INR 2.6. Continue plavix,aspirin, statin, and add bb when blood pressure allows. TTE pending. (2) CAD (coronary artery disease) Current Visit: No Status: Chronic Last LHC in 2014 with PCI to the RCA. Occ ostial LCX artery with collaterals. Moderate disease otherwise. History of three cardiac stents. Asa, plavix, statin and add bb if blood pressure allows. Qualifiers: Coronary Disease-Associated Artery/Lesion type: [place] artery [place] vs. transplanted heart: [place] heart Associated angina: without angina Qualified Code(s): I25.10 - Atherosclerotic heart disease of [place] coronary artery without angina pectoris (3) Atrial fibrillation Current Visit: No Status: Acute H/o chronic atrial fibrillation. Presented with atrial fibrillation with RVR in the setting of nausea and vomiting. Now rate controlled on amiodarone gtt due to hypotension. Continue amiodarone gtt. Add beta-stephany once able. On coumadin therapy monitored by ECF. Hold for possible LHC. Qualifiers: Atrial fibrillation type: paroxysmal Qualified Code(s): I48.0 - Paroxysmal atrial fibrillation Discussion w patient/family: The assessment and plan as outlined above was discussed with the patient and/or family members who expressed understanding and agreement. All questions were answered. Thank you for involving us in the care of your patient. Please call with any questions. History of Present Illness Consult date: 08/22/17 Requesting physician: Ky Pugh Consult reason: NSTEMI Chief complaint: Nausea, vomiting History of present illness: Ms. States is a 76 year old female with a history of CAD s/p previous PCI, atrial fibrillation on coumadin, ischemic cardiomyoapthy, ICD, CKD, COPD and dementia who presents with nausea and vomiting and dyspnea from the ECF. and sister at her bedside. Sister states that she had dark brown emesis but she had drank a soda. She was not feeling well all day and c/o increasing SOB, weakness. Initial work up revealed atrial fibrillation with RVR HR in 140' s. Lab work revealed elevated troponin at 8.12, acute on chronic kidney disease. UA was positive. She is a DNRCCA. In January of this year patient had IL in the setting of PNA, tropoin 1.15. declined invasive evaluation at that time. Cardiology consulted for further evaluation. She has confusion at baseline. She is a poor historian. She denies chest pain or palpitations. Denies weight gain or edema. Admits to SOB. No nausea at this time. Previous cardiac testing: TTE 01/2015: LVEF 50%. TTE 01/06/15: LVEF 45%, mild global hypokinesis, normal RV, RVSP 33 LHC 01/05/15: LVEF 50%, 50% stenosis in the LMCA, 30% stenosis in the Mid LAD. 50 % stenosis in the Distal LAD. 100% stenosis in the ostial Circumflex. The lesion has collaterals which feed from left to left. There is a 14 mm long, 80% stenosis in the Proximal RCA. The lesion has a TIMBO flow of 3. An intervention was performed on the Proximal RCA with a final stenosis of 0%. There were no lesion complications. The final TIMBO flow was 3. 30% instent restenosis in the Mid RCA and 30% stenosis in the Distal RCA. Past Med Surg Social Fam HX - Past Medical History Medical history: cardiomyopathy, cirrhosis, COPD, DVT, dementia, diabetes, peripheral artery disease, renal disease, other Psychiatric history: depression - Past Surgical History Surgical History: angioplasty/stent, hysterectomy, thyroidectomy, AICD - Social History Smoking Status: Former smoker Smokeless Tobacco Status: No Alcohol use: rarely Drug use: none - Family History Mother Living Status: Hx Family Cardiac Disorders: Yes Medications and Allergies Allopurinol [Zyloprim 100 MG] 100 mg PO DAILY 07/03/16 [History] Cholecalciferol (D-3) [Vitamin D] 2,000 unit PO DAILY 07/03/16 [History] Clopidogrel [Plavix] 75 mg PO DAILY 07/03/16 [History] Ferrous Sulfate 325 mg PO DAILY 07/03/16 [History] Isosorbide MONOnitrate (24 HR) [Imdur] 30 mg PO DAILY 07/03/16 [History] Levothyroxine [Synthroid] 150 mcg PO QAM 07/03/16 [History] Multivitamin [Multi-Day Vitamins] 1 each PO DAILY 07/03/16 [History] Oxygen 2 l NS AD 07/03/16 [History] Quetiapine Fumarate [Seroquel] 50 mg PO BID 07/03/16 [History] Rivastigmine Tartrate [Exelon] 3 mg PO BID 07/03/16 [History] Cranberry Fruit Extract [Cranberry] 425 mg PO DAILY 12/15/16 [History] Metoprolol Succinate 25 mg PO DAILY #10 tab.er.24h 12/18/16 [Rx] Atorvastatin Calcium [Lipitor] 20 mg PO HS 02/18/17 [History] Insulin Glargine,Hum.rec.anlog [Lantus Solostar] 22 unit SQ HS 02/18/17 [History ] Diltiazem CD (24hr) [Cardizem CD] 180 mg PO DAILY #30 cap.er.24h 02/22/17 [Rx] Acetaminophen [Tylenol] 650 mg PO Q4H PRN 08/21/17 [History] Benadryl 25mg/Haldol 1mg 1 ml TP Q2H PRN 08/21/17 [History] Citalopram [CeleXA] 20 mg PO DAILY 08/21/17 [History] Docusate [Colace] 100 mg PO BID 08/21/17 [History] Insulin ASPART [NovoLOG] 5 unit SQ TIDWM 08/21/17 [History] Ipratropium/Albuterol Neb [Duoneb] 3 ml IH QID PRN 08/21/17 [History] Polyethylene Glycol 3350 [MiraLAX] 17 gm PO DAILY 08/21/17 [History] Polyethylene Glycol 3350 [MiraLAX] 17 gm PO DAILY PRN 08/21/17 [History] Quetiapine Fumarate [SEROquel] 300 mg PO HS 08/21/17 [History] Warfarin [Coumadin] 3 mg PO 1800 08/21/17 [History] 3 Allergy/AdvReac Type Severity Reaction Status Date / Time lorazepam Allergy Anaphylaxis Verified 07/03/16 12:08 propoxyphene Allergy Anaphylaxis Verified 07/03/16 12:08 Sulfa (Sulfonamide Allergy Anaphylaxis Verified 07/03/16 12:08 Antibiotics) All Systems Review: A 10-system review of systems was performed and is negative for pertinent findings except as documented above in the HPI. Physical Examination Vital Signs, Last 4 Hours Temp Pulse Resp BP Pulse Ox 08/22/17 09:00 100 16 108/60 95 08/22/17 08:11 97.7 F 08/22/17 08:00 88 16 91/80 91 General: Conversant, No Apparent Distress, Other (confused at baseline) HEENT: Atraumatic, Normocephaly, Mucus Membranes Moist Neck: No JVD, Normal carotid pulses Cardiac: Other (Irregularly irregular) Lungs: Normal Breath Sounds, No Wheeze, Rales, Rhonchi, Other (diminished bases) Neuro: Alert and responsive, No focal deficits noted Abdomen: Soft, Non-Tender Skin: No rashes noted on visualized skin Musculoskeletal: No Chest Wall Tenderness Extremities: No Clubbing, No Cyanosis, No Edema, Normal Pulses, Other (multiple ecchymotic areas noted. ) Results 08/22/17 07:04 08/22/17 03:45 Lab Results 08/21/17 08/21/17 08/21/17 17:10 19:10 19:10 WBC 11.1 Hgb 9.2 L D Hct 29.5 L Plt Count 191 INR APTT Sodium 139 Potassium 4.8 H Chloride 101 Carbon Dioxide 28 BUN 25 H Creatinine 1.89 H Glucose 213 H Calcium 8.3 L Magnesium 1.8 Troponin I 21.28 H* 08/21/17 08/21/17 08/22/17 21:46 21:46 01:23 WBC 10.1 Hgb 9.2 L Hct 29.7 L Plt Count 182 INR 2.2 APTT 34.6 Sodium Potassium Chloride Carbon Dioxide BUN Creatinine Glucose Calcium Magnesium Troponin I 27.54 H* 08/22/17 08/22/17 08/22/17 03:45 03:45 03:45 WBC 9.3 Hgb 8.9 L Hct 29.0 L Plt Count 161 INR 2.4 APTT Sodium 138 Potassium 4.9 H Chloride 101 Carbon Dioxide 29 BUN 28 H Creatinine 2.04 H Glucose 200 H Calcium 8.2 L Magnesium 1.9 Troponin I 08/22/17 08/22/17 08/22/17 03:45 07:04 07:04 WBC 10.9 Hgb 9.2 L Hct 30.2 L Plt Count 187 INR APTT 58.0 H D Sodium Potassium Chloride Carbon Dioxide BUN Creatinine Glucose Calcium Magnesium Troponin I 25.67 H* 08/22/17 10:52 WBC Hgb Hct Plt Count INR 2.6 APTT 75.2 H Sodium Potassium Chloride Carbon Dioxide BUN Creatinine Glucose Calcium Magnesium Troponin I - Imaging and Cardiology Echo: report reviewed Cardiac cath: report reviewed - EKG Interpretation EKG results cardiology: personally reviewed (Atrial fibrillation, HR 80.) Consult Discharge Plan - Plan Referrals: Colton Hernandez DO [Primary Care Provider] - <Silvia Ortega - Last Filed: 08/22/17 19:25> Date of Encounter: 08/22/17 Assessment and Plan Discussion w patient/family: The assessment and plan as outlined above was discussed with the patient and/or family members who expressed understanding and agreement. All questions were answered. Thank you for involving us in the care of your patient. Please call with any questions. History of Present Illness History of present illness: Ms. Morgan is a 76 year old female All Systems Review: A 10-system review of systems was performed and is negative for pertinent findings except as documented above in the HPI. Physical Examination Vital Signs, Last 4 Hours Temp Pulse Resp BP Pulse Ox 08/22/17 18:00 129 16 113/57 97 08/22/17 17:00 102 16 120/62 97 08/22/17 16:01 99.7 F H 08/22/17 16:00 105 16 113/66 90 Results 08/22/17 15:16 08/22/17 03:45 Lab Results 08/21/17 08/21/17 08/21/17 17:10 19:10 19:10 WBC 11.1 Hgb 9.2 L D Hct 29.5 L Plt Count 191 INR APTT Sodium 139 Potassium 4.8 H Chloride 101 Carbon Dioxide 28 BUN 25 H Creatinine 1.89 H Glucose 213 H Calcium 8.3 L Magnesium 1.8 Troponin I 21.28 H* 08/21/17 08/21/17 08/22/17 21:46 21:46 01:23 WBC 10.1 Hgb 9.2 L Hct 29.7 L Plt Count 182 INR 2.2 APTT 34.6 Sodium Potassium Chloride Carbon Dioxide BUN Creatinine Glucose Calcium Magnesium Troponin I 27.54 H* 08/22/17 08/22/17 08/22/17 03:45 03:45 03:45 WBC 9.3 Hgb 8.9 L Hct 29.0 L Plt Count 161 INR 2.4 APTT Sodium 138 Potassium 4.9 H Chloride 101 Carbon Dioxide 29 BUN 28 H Creatinine 2.04 H Glucose 200 H Calcium 8.2 L Magnesium 1.9 Troponin I 08/22/17 08/22/17 08/22/17 03:45 07:04 07:04 WBC 10.9 Hgb 9.2 L Hct 30.2 L Plt Count 187 INR APTT 58.0 H D Sodium Potassium Chloride Carbon Dioxide BUN Creatinine Glucose Calcium Magnesium Troponin I 25.67 H* 08/22/17 08/22/17 08/22/17 10:52 15:16 15:16 WBC 11.4 H Hgb 9.7 L Hct 31.3 L Plt Count 192 INR 2.6 APTT 75.2 H Sodium Potassium Chloride Carbon Dioxide BUN Creatinine Glucose Calcium Magnesium Troponin I 18.93 H* - Attending Attestation I examined this patient and my medical decision-making was reviewed with the Resident Physician. I agree with the documented findings, disposition and treatment plan. Ms. Morgan is pleasantly demented, alert but oriented only to self. She initially presented with nausea and vomiting from ECF and was discovered to be in acute renal failure with positive UTI and concern for septic picture associated with hypotension requiring phenylephrine pressor agent. Troponins elevated to 27 and are now downtrending - consistent with NSTEMI. Incidentally also in RVR with known AFIB on amiodarone gtt due to hypotension. She is therapeutic on coumadin. When called from the Resident Physician upon her presentation, I was told that patient is DNR/CCA/DNI and family does not wish to pursue invasive testing. However, today the family was considering LHC. Unfortunately, I was not able to meet with them today but will plan to discuss tomorrow. 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 Furthermore, we must consider the potential risk of cath and use of anticoagulants vs. benefit. I do not think that performing cath/PCI would significantly improve her quality of life and may rather in the long-term cause harm since she would need to be on multiple anticoagulants. In addition, her echo does not demonstrate severe systolic heart failure. Her EF is about 40% which can be managed medically. Will discuss my recommendations with family tomorrow.
--- NOTE | 2017-08-22 12:26 | Event Note ---
Date of Encounter: 08/22/17 Time of Encounter: 11:45 Conducted bedside meeting with patient, , daughters and son-in-law. Augusto Aguayo RN and Dr. Pugh attended. Discussed patients current cardiac condition as well as overall status. Discussed goals of care related to having cardiac interventions. Encouraged family to meet with Cardiology and discuss options for cardiac cath. Discussed that family needs to discuss patients GOC among themselves. Provided explanations and teaching related to NSTEMI and troponin levels. Patient is bedridden at ECF and lift is used to transfer her to chair. Explained options for possible hospice care if patient meets criteria. Family desires patient to return to ECF at DC and verbalized understanding that patient is high risk for procedures and further decline given extent of cardiac damage. Will f/u with family tomorrow.
[2017-08-22 15:53] LABS: Hematocrit 31.3 % (35.3-44.9); Hemoglobin 9.7 g/dL (11.5-15.4); Mean Corpuscular Hemoglobin 28.6 pg (28.0-33.3); Mean Corpuscular Volume 92.3 fL (83.0-100.0); Mean Platelet Volume 11.3 fL (9.4-12.4); Platelet Count 192 K/mcL (140-400); Red Blood Count 3.39 M/mcL (3.82-4.97); Red Cell Distribution Width 13.9 % (11.5-14.5)
[2017-08-22] MEDS ORDERED: Meropenem 1,000 MG in 0.9 % Sodium Chloride Mini Bag 100 ML IVPB SCH (18:00)
[2017-08-22] MEDS ORDERED: *HR* Promethazine 25 MG/ML VIAL IVP PRN (20:32)
[2017-08-22 21:30] LABS: Hematocrit 30.6 % (35.3-44.9); Hemoglobin 9.7 g/dL (11.5-15.4); Mean Corpuscular HGB Conc 31.7 g/dL (31.6-35.5); Mean Corpuscular Hemoglobin 28.6 pg (28.0-33.3); Mean Corpuscular Volume 90.3 fL (83.0-100.0); Mean Platelet Volume 11.5 fL (9.4-12.4); Platelet Count 212 K/mcL (140-400); Red Blood Count 3.39 M/mcL (3.82-4.97); Red Cell Distribution Width 13.8 % (11.5-14.5)
[2017-08-23] MEDS ORDERED: *HR* Atropine Sulfate 1 MG/10 ML SYRINGE ONE (02:09)
--- NOTE | 2017-08-23 02:28 | Death Note ---
<SheyJohn silver - Last Filed: 08/23/17 02:19> Pronouncement Note - Date and Time of Date of : 08/23/17 Time of : 02:09 - PCOD Preliminary cause of : Cardiac arrest - Summary Additional details: Called to see patient for unresponsiveness. On exam the patient did not respond to verbal or physical stimuli. Absent heart and breath sounds for 1 minute. Absent peripheral pulses. Pupils are fixed and dilated. Patient pronounced at 02:09. Dr. Carrizales notified. Next of kin/ notified. Autopsy declined. - Additional Data Confirmation of : no pulse Family: contacted Attending/PCP notified?: Yes Attending physician: Mandy Carrizales Was code activated?: No <Ky Pugh - Last Filed: 08/23/17 06:32> Pronouncement Note - Additional Data Attending physician: Ky Pugh MD Attestation: I examined this patient and my medical decision-making was reviewed with the Resident Physician. I agree with the documented findings, disposition and treatment plan as described
--- NOTE | 2017-08-23 02:35 | Death Note ---
<John Nj - Last Filed: 08/23/17 06:21> Discharge Sum: Summary - Date and Time Date of admission: 08/21/17 16:42 Date of : 08/23/17 Time of : 02:09 - Summary Details: Ms. Morgan is a 76 year old resident in a nursing facility with a past medical history of Alzheimer's, CAD s/p previous PCI, atrial fibrillation on coumadin, ischemic cardiomyoapthy, ICD, CKD, COPD, and diabetes that was admitted for N/V , SOB, and AMS. Upon admission, the patient was found to be in A. fib RVR, had severe sepsis due to UTI, and NSTEMI. Patient's status was changed to DNR CCA DNI by her . When patient arrived to the ICU she was acutely altered and only alert to self. Patient's blood pressure was low and labile. Patient was initially started on Cardizem drip then transitioned to Amiodarone drip secondary to hypotension. Cardiology was consulted for up trending Troponin levels, she was started on Heparin drip, and LHC vs medical management was discussed with family. Palliative care was consulted and bedside meeting was conducted with family. Patient was not stable enough for LHC and decision was made to optimize medical management. On hospital day 2, patient was very restless throughout the night and pulled out IJ access. She remained tachycardic and anxious despite medical intervention. Patient later became unresponsive. On exam the patient did not respond to verbal or physical stimuli. She had absent heart and breath sounds for 1 minute, absent peripheral pulses, and pupils were fixed and dilated. Patient was pronounced at 02: 09. Next of kin/ notified. - Additional Data Confirmation of as documented by pronouncing clinician: no pulse Family: contacted Attending/PCP notified?: Yes Attending physician: Ky Pugh MD Was code activated?: No Autopsy requested?: No Discharge Sum: Diag - PCOD Probable Cause of : Cardiac arrest Discharge Sum: Prov - Provider Primary care physician: Colton Hernandez Attending physician on admission: Ky Pugh Consults: 08/21/17 21:18 Consult to Cardiology [CONS] Routine Comment: Consulting Provider: Cardiology Maria Elena Reason for Consult: Troponin Elevation Time Notified: 21:18 Call Completed: Yes 08/22/17 07:41 Consult to Palliative Care [CONS] Stat Comment: Consulting Provider: Palliative Care Swain Reason for Consult: DNR/DNI/NSTEMI/SEPSIS Call Completed: Yes Pronouncing clinician: John Nj <Ky Pugh - Last Filed: 08/23/17 06:30> Discharge Sum: Summary - Date and Time Date of admission: 08/21/17 16:42 - Additional Data Attending physician: Ky Pugh MD Discharge Sum: Prov - Provider Primary care physician: Colton Hernandez Admitting clinician: Ky Pugh Consults: 08/21/17 21:18 Consult to Cardiology [CONS] Routine Comment: Consulting Provider: Cardiology Maria Elena Reason for Consult: Troponin Elevation Time Notified: 21:18 Call Completed: Yes 08/22/17 07:41 Consult to Palliative Care [CONS] Stat Comment: Consulting Provider: Palliative Care Maria Elena Reason for Consult: DNR/DNI/NSTEMI/SEPSIS Call Completed: Yes - Attending Attestation I examined this patient prior in the day and my medical decision-making was reviewed with the Resident Physician. I agree with the documented findings. I was not present the patient's eventual demise.
[2017-08-23 02:55] VITALS: BP 76/55
--- NOTE | 2017-08-24 08:18 | Electrocardiograph Report ---
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: : 1940 Requested By: Suraj Dimas Order Number: [id number] Reading MD: Robert Mortensen MD Measurements Intervals [place] Rate: 137 P: AR: 0 QRS: -4 QRSD: 114 T: 22 QT: 306 QTc: 386 Interpretive Statements ATRIAL FIBRILLATION WITH RAPID VENTRICULAR RESPONSE LOW QRS VOLTAGE IN PRECORDIAL LEADS [QRS DEFLECTION < 1.0 mV IN CHEST LEADS] INCOMPLETE RIGHT BUNDLE BRANCH BLOCK [90+ ms QRS DURATION, TERMINAL R IN V1/V2, 40+ ms S IN I/aVL/V4/V5/V6] ANTEROSEPTAL MYOCARDIAL INFARCTION [40+ ms Q WAVE IN V1-V4], OF INDETERMINATE AGE INTERPRETATION BASED ON A DEFAULT AGE OF 40 YEARS Electronically Signed On 08-21-2017 16:45:49 EDT by Robert Mortensen MD
--- NOTE | 2017-08-24 08:48 | Electrocardiograph Report ---
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
--- NOTE | 2017-08-24 08:49 | Electrocardiograph Report ---
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
--- NOTE | 2017-08-24 09:48 | Electrocardiograph Report ---
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
== END 2017-08-23 05:49 | disposition expired | DRG 871 ==
LOC: EMEROO 11:29 → ICNU 16:42
PROVIDERS: ADMIT Internal Medicine Hospice and Palliative Medicine; ATTEND Internal Medicine Hospice and Palliative Medicine